=== PATIENT | male | born 1980 | race Caucasian/White ===

== ENCOUNTER 2020-04-21 10:41 | Inpatient (IN) | payer SELFPAY ==
[2020-04-21] MEDS ORDERED: NORMAL SALINE 1000 ML 1,000 ML IV ONE ×3 (11:51→18:46)
[2020-04-21] MEDS ORDERED: PROCHLORPERAZINE EDISYLATE INJ 10 MG/2 ML VIAL IV ONE (11:51)
[2020-04-21] MEDS ORDERED: DIPH/PERTUSS(ACELL)/TETANUS VAC/PF 0.5 ML SYR (>=10YO) IM ONE (11:51)
[2020-04-21] MEDS ORDERED: DIPHENHYDRAMINE HCL 50 MG/ML VIAL IV ONE (11:51)
[2020-04-21] MEDS ORDERED: CEPHALEXIN 500 MG CAPSULE PO ONE (11:52)
[2020-04-21] MEDS ORDERED: SULFAMETHOXAZOLE/TRIMETHOPRIM 800-160 MG TABLET PO ONE (11:52)
--- NOTE | 2020-04-21 11:54 | ER Document Report ---
ED General - General Chief Complaint: Headache Stated Complaint: HEADACHE/NAUSEA/CHILLS Time Seen by Provider: 04/21/20 11:30 Mode of Arrival: Ambulatory Information source: Patient Notes: Patient presents with multiple complaints. Patient reports headache that started 4 days ago and has gradually started to worsen. Patient reports some dizziness with sore throat. Patient states he felt as though his heart was racing and felt short of breath for the past 2 days off and on. Patient reports nausea as well as chills. Patient also states he slipped on stairs 5 days ago injuring his right ankle. - HPI Onset: Other - 4 days Onset/Duration: Worse Quality of pain: Achy, Pressure Pain Level: 4 Associated symptoms: Chills, Headache, Nausea, Shortness of breath. denies: Chest pain, Nonproductive cough, Productive cough, Diarrhea, Fever, Vomiting Exacerbated by: Other - Light makes headache worse Relieved by: Denies Similar symptoms previously: No Recently seen / treated by doctor: No - Related Data Allergies/Adverse Reactions: lisinopril [Lisinopril] Allergy (Verified 04/21/20 12:08) ANGIOEDEMA muscle relaxers Allergy (Uncoded 05/01/14 10:26) Past Medical History - General Information source: Patient - Social History Smoking Status: Current Every Day Smoker Frequency of alcohol use: None Drug Abuse: None Occupation: [employer] Family History: Reviewed & Not Pertinent - Past Medical History Cardiac Medical History: Reports: Hx Hypertension Pulmonary Medical History: Denies: Hx Tuberculosis Renal/ Medical History: Reports: Other - Cholecystic kidney disease Psychiatric Medical History: Reports: Hx Depression Past Surgical History: Reports: Hx Orthopedic Surgery - [place] IN RIGHT LEG - Immunizations Hx Diphtheria, Pertussis, Tetanus Vaccination: No - unknown Hx Pneumococcal Vaccination: 10/18/00 Review of Systems - Review of Systems Constitutional: Chills. denies: Fever EENT: Throat pain Cardiovascular: Palpitations, Heart racing, Dizziness. denies: Chest pain Respiratory: Short of breath. denies: Cough Gastrointestinal: Nausea. denies: Abdominal pain, Vomiting Genitourinary: No symptoms reported Male Genitourinary: No symptoms reported Musculoskeletal: Joint pain - Right ankle pain. denies: Back pain, Neck pain Skin: Other - Right ankle abrasion Hematologic/Lymphatic: No symptoms reported Neurological/Psychological: Headaches. denies: Confusion, Weakness, Lost consciousness Physical Exam - Vital signs Vitals: Temp 98.4 F 04/21/20 11:25 - General General appearance: Appears well, Alert In distress: None - HEENT Head: Normocephalic, Atraumatic Eyes: Normal, Scleral icterus Pupils: PERRL Nasal: Normal Mouth/Lips: Normal Mucous membranes: Dry Neck: Normal, Supple. No: Lymphadenopathy, Meningismus - Respiratory Respiratory status: No respiratory distress Chest status: Nontender Breath sounds: Normal. No: Rales, Rhonchi, Stridor, Wheezing Chest palpation: Normal - Cardiovascular Rhythm: Regular. No: Tachycardia Heart sounds: S1 appreciated, S2 appreciated Murmur: No - Abdominal Inspection: Normal Distension: No distension Bowel sounds: Normal Tenderness: Nontender Organomegaly: No organomegaly - Back Back: Normal, Nontender - Extremities General upper extremity: Normal inspection, Normal strength General lower extremity: Tender - Tenderness with erythema over lateral aspect of right ankle with overlying abrasion, Normal strength Ankle: Tender, Abrasion - Right ankle, Edema. No: Deformity, Instability, Laceration, Unable to bear weight - Neurological Neuro grossly intact: Yes Cognition: Normal Coby Coma Scale Eye Opening: Spontaneous Coby Coma Scale Verbal: Oriented Coby Coma Scale Motor: Obeys Commands Jewell Coma Scale Total: 15 - Psychological Associated symptoms: Normal affect, Normal mood - Skin Skin Temperature: Warm Skin Moisture: Dry Skin Color: Erythema - Lateral aspect of right ankle Course - Re-evaluation Re-evalutation: 04/21/20 15:00 Patient continues with headache pain. Patient denies any chest discomfort or shortness of breath. Patient denies any palpitations. Additional pain medication for headache ordered. 04/21/20 17:00 Patient with elevated troponin, no ischemic changes noted on EKG. Patient denies any chest pain or shortness of breath at this time. 04/21/20 17:[address] Alberts, Dr. Alberts to bedside for examination. Advises giving patient IV vancomycin as well as Rocephin and consulting with the underground miner Dr. Haley regarding patient presentation. Also advises planned consultation with hospitalist for admission given patient's multiple issues today. 04/21/20 17:58 consulted with Bobby Mead [employer] who agrees to accept pt to telemetry. Will consult ortho given concern about fracture with overlying cellulitis. - Vital Signs Vital signs: Temp Pulse Resp BP Pulse Ox 100.1 F 106 H 17 157/97 H 100 04/21/20 15:22 04/21/20 15:22 04/21/20 15:22 04/21/20 15:22 04/21/20 15:22 - Laboratory Result Diagrams: 04/21/20 15:15 04/21/20 15:15 Laboratory results interpreted by me: 04/21/20 04/21/20 04/21/20 12:20 15:15 15:15 Plt Count 135 L Seg Neuts % (Manual) 95 H Lymphocytes % (Manual) 1 L Abs Lymphs (Manual) 0.1 L D-Dimer Sodium 132.4 L Chloride 97 L Glucose 133 H Urine Protein >=500 H Urine Blood SMALL H Urine Urobilinogen 4.0 H 04/21/20 15:15 Plt Count Seg Neuts % (Manual) Lymphocytes % (Manual) Abs Lymphs (Manual) D-Dimer 6.10 H Sodium Chloride Glucose Urine Protein Urine Blood Urine Urobilinogen Labs- All tests 24 hr 04/21/20 04/21/20 04/21/20 12:17 12:20 15:15 WBC 7.7 RBC 5.02 Hgb 14.6 Hct 41.9 MCV 84 MCH 29.1 MCHC 34.9 RDW 12.8 Plt Count 135 L Lymph % (Auto) Not Reportable [place] % (Auto) Not Reportable Eos % (Auto) Not Reportable Baso % (Auto) Not Reportable Absolute Neuts (auto) Not Reportable Absolute Lymphs (auto) Not Reportable Absolute Monos (auto) Not Reportable Absolute Eos (auto) Not Reportable Absolute Basos (auto) Not Reportable Total Counted 100 Seg Neutrophils % Not Reportable Seg Neuts % (Manual) 95 H Lymphocytes % (Manual) 1 L Monocytes % (Manual) 4 Eosinophils % (Manual) 0 Basophils % (Manual) 0 Abs Neuts (Manual) 7.3 Abs Lymphs (Manual) 0.1 L Abs Monocytes (Manual) 0.3 Absolute Eos (Manual) 0.0 Abs Basophils (Manual) 0.0 Platelet Comment ADEQUATE RBC Morph Comment NORMO-CYTIC/CHROMIC PT INR D-Dimer Sodium Potassium Chloride Carbon Dioxide Anion Gap BUN Creatinine Est GFR ( Amer) Est GFR (MDRD) Non-Af Glucose Calcium Total Bilirubin Direct Bilirubin Neonat Total Bilirubin Neonat Direct Bilirubin Neonat Indirect Bili AST ALT Alkaline Phosphatase Creatine Kinase Troponin I Total Protein Albumin Urine Color RIAN Urine Appearance SLIGHTLY-CLOUDY Urine pH 6.0 Ur Specific [place] 1.019 Urine Protein >=500 H Urine Glucose (UA) NEGATIVE Urine Ketones NEGATIVE Urine Blood SMALL H Urine Nitrite NEGATIVE Urine Bilirubin NEGATIVE Urine Urobilinogen 4.0 H Ur Leukocyte Esterase NEGATIVE Urine WBC (Auto) 10 Urine RBC (Auto) 9 Urine Bacteria (Auto) TRACE Amorphous Sediment Auto TRACE Urine Mucus (Auto) RARE Urine Ascorbic Acid NEGATIVE Group A Strep Rapid NEGATIVE 04/21/20 04/21/20 04/21/20 15:15 15:15 15:15 WBC RBC Hgb Hct MCV MCH MCHC RDW Plt Count Lymph % (Auto) [place] % (Auto) Eos % (Auto) Baso % (Auto) Absolute Neuts (auto) Absolute Lymphs (auto) Absolute Monos (auto) Absolute Eos (auto) Absolute Basos (auto) Total Counted Seg Neutrophils % Seg Neuts % (Manual) Lymphocytes % (Manual) Monocytes % (Manual) Eosinophils % (Manual) Basophils % (Manual) Abs Neuts (Manual) Abs Lymphs (Manual) Abs Monocytes (Manual) Absolute Eos (Manual) Abs Basophils (Manual) Platelet Comment RBC Morph Comment PT INR D-Dimer 6.10 H Sodium 132.4 L Potassium 3.9 Chloride 97 L Carbon Dioxide 25 Anion Gap 10 BUN 17 Creatinine 0.97 Est GFR ( Amer) > 60 Est GFR (MDRD) Non-Af > 60 Glucose 133 H Calcium 8.7 Total Bilirubin 0.7 Direct Bilirubin 0.2 Neonat Total Bilirubin Not Reportable Neonat Direct Bilirubin Not Reportable Neonat Indirect Bili Not Reportable AST 33 ALT 14 Alkaline Phosphatase 111 Creatine Kinase 59 Troponin I 0.141 Total Protein 6.7 Albumin 3.6 Urine Color Urine Appearance Urine pH Ur Specific [place] Urine Protein Urine Glucose (UA) Urine Ketones Urine Blood Urine Nitrite Urine Bilirubin Urine Urobilinogen Ur Leukocyte Esterase Urine WBC (Auto) Urine RBC (Auto) Urine Bacteria (Auto) Amorphous Sediment Auto Urine Mucus (Auto) Urine Ascorbic Acid Group A Strep Rapid 04/21/20 15:15 WBC RBC Hgb Hct MCV MCH MCHC RDW Plt Count Lymph % (Auto) [place] % (Auto) Eos % (Auto) Baso % (Auto) Absolute Neuts (auto) Absolute Lymphs (auto) Absolute Monos (auto) Absolute Eos (auto) Absolute Basos (auto) Total Counted Seg Neutrophils % Seg Neuts % (Manual) Lymphocytes % (Manual) Monocytes % (Manual) Eosinophils % (Manual) Basophils % (Manual) Abs Neuts (Manual) Abs Lymphs (Manual) Abs Monocytes (Manual) Absolute Eos (Manual) Abs Basophils (Manual) Platelet Comment RBC Morph Comment PT 14.0 INR 1.09 D-Dimer Sodium Potassium Chloride Carbon Dioxide Anion Gap BUN Creatinine Est GFR ( Amer) Est GFR (MDRD) Non-Af Glucose Calcium Total Bilirubin Direct Bilirubin Neonat Total Bilirubin Neonat Direct Bilirubin Neonat Indirect Bili AST ALT Alkaline Phosphatase Creatine Kinase Troponin I Total Protein Albumin Urine Color Urine Appearance Urine pH Ur Specific [place] Urine Protein Urine Glucose (UA) Urine Ketones Urine Blood Urine Nitrite Urine Bilirubin Urine Urobilinogen Ur Leukocyte Esterase Urine WBC (Auto) Urine RBC (Auto) Urine Bacteria (Auto) Amorphous Sediment Auto Urine Mucus (Auto) Urine Ascorbic Acid Group A Strep Rapid - Diagnostic Test Radiology reviewed: Reports reviewed Discharge - Discharge Clinical Impression: Elevated troponin Headache Qualifiers: Headache type: unspecified Headache chronicity pattern: acute headache Intractability: not intractable Qualified Code(s): R51 - Headache Cellulitis Qualifiers: Site of cellulitis: extremity Site of cellulitis of extremity: lower extremity Laterality: right Qualified Code(s): L03.115 - Cellulitis of right lower limb Avulsion fracture of ankle Qualifiers: Encounter type: initial encounter Fracture type: closed Laterality: right Qualified Code(s): S82.891A - Other fracture of right lower leg, initial encounter for closed fracture Condition: Stable Disposition: ADMITTED INPATIENT Admitting Provider: Aneudy (Hospitalist) Unit Admitted: Telemetry
--- NOTE | 2020-04-21 12:35 | RADIOLOGY REPORT (SQ) ---
EXAM DESCRIPTION: ANKLE RIGHT COMPLETE IMAGES COMPLETED DATE/TIME: 04/21/2020 12:12 pm REASON FOR STUDY: fall, ankle injury COMPARISON: None. EXAM PARAMETERS: NUMBER OF VIEWS: Three views. TECHNIQUE: AP, lateral and oblique radiographic images acquired of the right ankle. LIMITATIONS: None. FINDINGS: MINERALIZATION: Normal. BONES: 3 mm nondisplaced avulsion fracture from the posterolateral corner of the lateral malleolus, s een only on the oblique projection. No other fracture or Dislocation. Distal tibial hardware appear s intact. No worrisome bone lesions. JOINTS: No effusion. SOFT TISSUES: Lateral soft tissue swelling. No radiopaque foreign body. OTHER: No other significant finding. IMPRESSION: 3 mm nondisplaced avulsion fracture from the posterolateral corner of the lateral malleo milagros, seen only on the oblique projection. TECHNICAL DOCUMENTATION: JOB ID: [id number] [id number] 2010 [email or web address]- All Rights Reserved Reading location - IP/workstation name: [email or web address]
--- NOTE | 2020-04-21 12:38 | RADIOLOGY REPORT (SQ) ---
EXAM DESCRIPTION: CHEST SINGLE VIEW IMAGES COMPLETED DATE/TIME: 04/21/2020 12:12 pm REASON FOR STUDY: sob COMPARISON: 02/16/2014 TECHNIQUE: Single frontal radiographic view of the chest acquired. NUMBER OF VIEWS: One view. LIMITATIONS: None. FINDINGS: LUNGS AND PLEURA: No pneumothorax. No consolidation or pleural effusion. MEDIASTINUM AND HILAR STRUCTURES: Stable. HEART AND VASCULAR STRUCTURES: Stable. BONES: No acute findings. HARDWARE: None in the chest. OTHER: Similar metallic BB in the left upper quadrant -lung base. IMPRESSION: NO ACUTE FINDINGS. TECHNICAL DOCUMENTATION: JOB ID: [id number] [place]-72 2010 [employer]- All Rights Reserved Reading location - IP/workstation name: [email or web address]
[2020-04-21] MEDS ORDERED: MORPHINE SULFATE 10 MG/ML INJ IV ONE (15:13)
[2020-04-21 15:21] LABS: AMORPHOUS SEDIMENT,URINE TRACE /HPF; APPEARANCE,URINE SLIGHTLY-CLOUDY; BILIRUBIN,URINE NEGATIVE (NEGATIVE); COLOR,URINE AMBER; GLUCOSE, URINE NEGATIVE (NEGATIVE); KETONES,URINE NEGATIVE (NEGATIVE); LEUKOCYTE ESTERASE,URINE NEGATIVE (NEGATIVE); NITRITE,URINE NEGATIVE (NEGATIVE); PROTEIN,URINE >=500 mg/dL (NEGATIVE); URINE SPECIFIC GRAVITY 1.019
[2020-04-21 15:42] LABS: HEMATOCRIT 41.9 % (37.9-51.0); HEMOGLOBIN 14.6 g/dL (13.5-17.0); MEAN CORPUSCULAR HEMOGLOBIN 29.1 pg (27.0-33.4); MEAN CORPUSCULAR HGB CONC 34.9 g/dL (32.0-36.0); MEAN CORPUSCULAR VOLUME 84 fl (80-97); PLATELET COUNT 135 10^3/uL (150-450); RED BLOOD COUNT 5.02 10^6/uL (4.35-5.55); RED CELL DISTRIBUTION WIDTH 12.8 % (11.5-14.0); WHITE BLOOD COUNT 7.7 10^3/uL (4.0-10.5)
[2020-04-21] MEDS ORDERED: ACETAMINOPHEN 325 MG TABLET PO ONE (15:56)
[2020-04-21 15:59] LABS: ALBUMIN 3.6 g/dL (3.5-5.0); ALKALINE PHOSPHATASE 111 U/L (38-126); ANION GAP 10 (5-19); ASPARTATE AMINO TRANSFERASE 33 U/L (17-59); BILIRUBIN,DIRECT 0.2 mg/dL (0.0-0.4); BILIRUBIN,TOTAL 0.7 mg/dL (0.2-1.3); BLOOD UREA NITROGEN 17 mg/dL (7-20); CALCIUM 8.7 mg/dL (8.4-10.2); CARBON DIOXIDE 25 mmol/L (22-30); CHLORIDE 97 mmol/L (98-107); CREATINE KINASE 59 U/L (55-170); GLUCOSE 133 mg/dL (75-110); POTASSIUM 3.9 mmol/L (3.6-5.0); TOTAL PROTEIN 6.7 g/dL (6.3-8.2)
[2020-04-21 16:02] LABS: ABSOLUTE LYMPHOCYTES# (MANUAL) 0.1 10^3/uL (0.5-4.7); ABSOLUTE MONOCYTES # (MANUAL) 0.3 10^3/uL (0.1-1.4); BASOPHILS % (MANUAL) 0 % (0-2); EOSINOPHILS % (MANUAL) 0 % (0-6); LYMPHOCYTES % (MANUAL) 1 % (13-45); MONOCYTES % (MANUAL) 4 % (3-13); SEGMENTED NEUTROPHILS % (MAN) 95 % (42-78); TOTAL CELLS COUNTED 100
[2020-04-21 16:03] LABS: PLATELET COMMENT ADEQUATE; RBC MORPHOLOGY COMMENT NORMO-CYTIC/CHROMIC
[2020-04-21] MEDS ORDERED: ASPIRIN 81 MG TABLET, CHEWABLE PO ONE (16:59)
--- NOTE | 2020-04-21 17:21 | EKG REPORT ---
SEVERITY:- NORMAL ECG - SINUS RHYTHM : Confirmed by: Fadumo Menendez MD 21-Apr-2020 17:20:34
--- NOTE | 2020-04-21 17:21 | EKG REPORT ---
SEVERITY:- NORMAL ECG - SINUS RHYTHM : Confirmed by: Fadumo Menendez MD 21-Apr-2020 17:20:57
[2020-04-21] MEDS ORDERED: CEFTRIAXONE 1 GM/D5W RTU 1 GM/50 ML RTUPB IV ONE (17:23)
[2020-04-21] MEDS ORDERED: KETOROLAC TROMETHAMINE INJ/PF 30 MG/1 ML SDV IV ONE (17:23)
[2020-04-21] MEDS ORDERED: VANCOMYCIN HCL INJ 1000 MG VIAL IV ONE (17:23)
--- NOTE | 2020-04-21 17:57 | ER Document Report ---
Doctor's Note Notes: 04/21/20 17:55 Is a 39-year-old man I was asked to see along with midlevel provider. He presented today with multiple complaints and problems. Chief among these seems to be a cellulitis involving the right ankle area. X-rays demonstrated a small chip fracture in this area. Examination does not show any fluctuance or galloway ggestion of an abscess. He does however have a significant cellulitis. He is afebrile and his white count is normal but he is complaining of some systemic symptoms primarily persistent headache. He is also noted to have a small elevation of his troponin although he has no EKG changes no complaint of chest pain. I recommended that the case be presented to cardiology and that this gentleman receive IV antibiotics with MRSA coverage and at least an observation admission and serial follow-up of his troponin. Findings were presented to the on-call medical physics teacher Dr. Haley and he feels this is a "troponin leak" in all likelihood and suggest that he be admitted and have a repeat troponin documented.
[2020-04-21] MEDS ORDERED: ACETAMINOPHEN 325 MG TABLET PO PRN (18:17)
[2020-04-21] MEDS ORDERED: PROMETHAZINE HCL INJ 25 MG/1 ML VIAL IV PRN (18:27)
[2020-04-21] MEDS ORDERED: ONDANSETRON HCL INJ/PF 4 MG/2 ML SDV IV PRN (18:27)
[2020-04-21] MEDS ORDERED: MAG HYDROX/AL HYDROX/SIMETH SUSP 30 ML UDCUP PO PRN (18:27)
[2020-04-21] MEDS ORDERED: MAGNESIUM HYDROXIDE SUSP 30 ML UDCUP PO PRN (18:27)
[2020-04-21] MEDS ORDERED: HYDRALAZINE HCL INJ/PF 20 MG/1 ML SDV IV PRN (18:29)
[2020-04-21] MEDS ORDERED: HYDROCODONE/ACETAMINOPHEN 5-325 MG TABLET PO PRN (18:33)
[2020-04-21] MEDS ORDERED: VANCOMYCIN HCL 0 MG in DEXTROSE 5%-WATER 250 ML IV NR (18:45)
[2020-04-21 18:49] LABS: INTERNATIONAL RATION (INR) 1.09
--- NOTE | 2020-04-21 19:05 | PDOC H&P ---
History of Present Illness Admission Date/PCP: 04/21/20 18:25 Patient complains of: headache, right ankle pain History of Present Illness: NANCIE SCHROEDER is a 39 year old male with a past medical history significant for hypertension and tobacco dependence with continuous use who presented to the emergency department with multiple complaints. The patient reports that he slipped on wet stairs 5 days ago. He developed ankle swelling, erythema, and pain approximately 2 days later associated with subjective fever, generalized body aches/malaise, mild nausea, and diarrhea. He notes that a day or 2 after that, he developed global headache, sore throat, shortness of breath, and chest discomfort. 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 Evaluation in the emergency department revealed low-grade temp (100.1), tac hycardia 5 days ago (HR 106), hypertension (157/97), normal respiratory rate and SPO2. Laboratory evaluation revealed normal WBCs though lymphopenia, and unremarkable chemistry, troponin of 0.141, proteinuria, and a negative group strep. EKG shows sinus rhythm. Chest x-ray is benign. Ankle x-ray shows a right lateral malleolus avulsion fracture. He was provided IV vancomycin and Rocephin, 2 L normal saline bolus, and is referred to the hospitalist service for admission and management of the above- stated complaints and findings. Past Medical History Cardiac Medical History: Reports: Hypertension Denies: Atrial Fibrillation, Coronary Artery Disease, Hyperlipidema Pulmonary Medical History: Denies: Chronic Obstructive Pulmonary Disease (COPD), Tuberculosis EENT Medical History: Reports: None Neurological Medical History: Reports: None Endocrine Medical History: Reports: None Renal/ Medical History: Reports: None Malignancy Medical History: Reports: None GI Medical History: Reports: Hepatitis - s/p Harvoni treatment Musculoskeltal Medical History: Reports: None Skin Medical History: Reports: None Psychiatric Medical History: Reports: Depression, Tobacco Dependency Hematology: Reports: None Infectious Medical History: Reports: Hepatitis C Past Surgical History Past Surgical History: Reports: Orthopedic Surgery - [facility] IN RIGHT LEG Social History Information Source: Patient Lives with: Alone Smoking Status: Current Every Day Smoker Cigarettes Packs Per Day: 1 Frequency of Alcohol Use: None Hx Recreational Drug Use: Yes Drugs: Marijuana, Other Hx Prescription Drug Abuse: No - Advance Directive Resuscitation Status: Full Code Family History Family History: Reviewed & Not Pertinent Parental Family History Reviewed: Yes Children Family History Reviewed: Yes Sibling(s) Family History Reviewed.: Yes Medication/Allergy Home Medications: Sulfamethoxazole/Trimethoprim [Bactrim Ds Tablet] 2 tab PO BID #40 tablet 04/26/14 Acetaminophen with Codeine [Acetaminophen-Cod #3 Tablet] 1 each PO Q4 PRN #20 tablet 05/01/14 Tramadol HCl [Ultram 50 mg Tablet] 50 mg PO Q6HP PRN #10 tablet 05/14/14 Allergies/Adverse Reactions: lisinopril [Lisinopril] Allergy (Verified 04/21/20 12:08) ANGIOEDEMA muscle relaxers Allergy (Uncoded 05/01/14 10:26) Review of Systems Constitutional: PRESENT: chills, fever(s), headache(s). ABSENT: weight gain, weight loss Eyes: ABSENT: visual disturbances Ears: ABSENT: hearing changes Nose, Mouth, and Throat: PRESENT: sore throat Cardiovascular: PRESENT: chest pain. ABSENT: dyspnea on exertion, edema, orthropnea, palpitations Respiratory: PRESENT: dyspnea. ABSENT: cough, hemoptysis Gastrointestinal: PRESENT: diarrhea, nausea, vomiting. ABSENT: abdominal pain, constipation, hematemesis, hematochezia Genitourinary: ABSENT: dysuria, hematuria Musculoskeletal: PRESENT: as per HPI, deformity, joint swelling Integumentary: PRESENT: erythema. ABSENT: rash, wounds Neurological: ABSENT: abnormal gait, abnormal speech, confusion, dizziness, focal weakness, syncope Psychiatric: ABSENT: anxiety, depression, homidical ideation, suicidal ideation Endocrine: ABSENT: cold intolerance, heat intolerance, polydipsia, polyuria Hematologic/Lymphatic: ABSENT: easy bleeding, easy bruising Physical Exam Vital Signs: Temp Pulse Resp BP Pulse Ox 100.1 F 106 H 17 157/97 H 100 04/21/20 15:22 04/21/20 15:22 04/21/20 15:22 04/21/20 15:22 04/21/20 15:22 Intake & Output 04/20/20 04/21/20 04/22/20 06:59 06:59 06:59 Intake Total 1000 Balance 1000 Weight 79.379 kg General appearance: PRESENT: no acute distress, cooperative, well-developed, well-nourished Head exam: PRESENT: atraumatic, normocephalic Eye exam: PRESENT: conjunctiva pink, EOMI, PERRLA. ABSENT: scleral icterus Mouth exam: PRESENT: dry mucosa, tongue midline Respiratory exam: PRESENT: clear to auscultation nils, symmetrical, unlabored. ABSENT: rales, rhonchi, wheezes Cardiovascular exam: PRESENT: RRR, +S1, +S2, tachycardia. ABSENT: diastolic murmur, rubs, systolic murmur Pulses: PRESENT: normal dorsalis pedis pul Vascular exam: PRESENT: normal capillary refill GI/Abdominal exam: PRESENT: normal bowel sounds, soft. ABSENT: distended, guarding, mass, organolmegaly, rebound, tenderness Rectal exam: PRESENT: deferred Extremities exam: PRESENT: joint swelling - Right ankle, tenderness - Right ankle. ABSENT: calf tenderness, clubbing, pedal edema Neurological exam: PRESENT: alert, awake, oriented to person, oriented to place, oriented to time, oriented to situation, CN II-XII grossly intact. ABSENT: motor sensory deficit Psychiatric exam: PRESENT: appropriate affect, normal mood. ABSENT: homicidal ideation, suicidal ideation Skin exam: PRESENT: dry, erythema - Small abrasion and erythema to right ankle, warm. ABSENT: cyanosis, rash Results Laboratory Results: 04/21/20 15:15 04/21/20 15:15 04/21/20 04/21/20 04/21/20 12:20 15:15 15:15 WBC 7.7 RBC 5.02 Hgb 14.6 Hct 41.9 MCV 84 MCH 29.1 MCHC 34.9 RDW 12.8 Plt Count 135 L Seg Neutrophils % Not Reportable Sodium 132.4 L Potassium 3.9 Chloride 97 L Carbon Dioxide 25 Anion Gap 10 BUN 17 Creatinine 0.97 Est GFR ( Amer) > 60 Glucose 133 H Calcium 8.7 Total Bilirubin 0.7 AST 33 Alkaline Phosphatase 111 Total Protein 6.7 Albumin 3.6 Urine Color RIAN Urine Appearance SLIGHTLY-CLOUDY Urine pH 6.0 Ur Specific [place] 1.019 Urine Protein >=500 H Urine Glucose (UA) NEGATIVE Urine Ketones NEGATIVE Urine Blood SMALL H Urine Nitrite NEGATIVE Ur Leukocyte Esterase NEGATIVE Urine WBC (Auto) 10 Urine RBC (Auto) 9 04/21/20 04/21/20 15:15 15:15 Creatine Kinase 59 Troponin I 0.141 Impressions: Ankle X-Ray 04/21/20 11:50 IMPRESSION: 3 mm nondisplaced avulsion fracture from the posterolateral corner of the lateral malleolus, seen only on the oblique projection. Chest X-Ray 04/21/20 11:50 IMPRESSION: NO ACUTE FINDINGS. Assessment and Plan - Diagnosis (1) Cellulitis Qualifiers: Site of cellulitis: extremity Site of cellulitis of extremity: lower extremity Laterality: right Qualified Code(s): L03.115 - Cellulitis of right lower limb Is this a current diagnosis for this admission?: Yes Plan: Blood cultures pending Patient is admitted to the medical floor on continuous cardiac telemetry. Orthopedics has been consulted; appreciate Dr. Cortes's assistance. He is empirically placed on IV vancomycin and Ancef. Keep extremity elevated. Analgesics as needed. (2) Suspected COVID-19 virus infection Is this a current diagnosis for this admission?: Yes Plan: Patient presents with systemic symptoms that cannot be entirely explained by his cellulitis; fever, chills, malaise, headache, sore throat, shortness of breath, chest discomfort, nausea, diarrhea. Is noted to have a low-grade temperature, tachycardia, and tachypnea, but mainta ining oxygen saturations on room air. COVID test pending. D-dimer is elevated; will hold on full dose anticoagulation as patient does not have hypoxia. Should this develop, and anticoagulation, will start Heparin gtt given acute ankle fracture. He will be placed on vitamin C, vitamin D, DM, and melatonin. Supplemental oxygen as needed to maintain saturations. We will forego the CRP, LDH, ferritin as the patient has a fracture and cellulitis which would also elevate these results. (3) Sepsis Qualifiers: Sepsis type: sepsis due to unspecified organism Sepsis acute organ dysfunction status: without acute organ dysfunction Qualified Code(s): A41.9 - Sepsis, unspecified organism Is this a current diagnosis for this admission?: Yes Plan: Patient presents with sepsis, presumably due to right ankle cellulitis, present on admission, evidenced by fever, tachycardia, tachypnea, thrombocytopenia, and elevated troponin. Lactic acid pending. He is fluid resuscitated with normal saline boluses and maintenance fluids. Blood cultures are pending. Discussed with Ortho, he will be placed on IV vancomycin and Ancef. Remaining management as above. (4) Avulsion fracture of ankle Qualifiers: Encounter type: initial encounter Fracture type: closed Laterality: right Qualified Code(s): S82.891A - Other fracture of right lower leg, initial encounter for closed fracture Is this a current diagnosis for this admission?: Yes Plan: Velcro stirrup splint in place. Keep extremity elevated. [place] as needed for pain. Antiemetics as needed. Orthopedics is consulted; appreciate Dr. Cortes's evaluation recommendations. (5) Elevated troponin Is this a current diagnosis for this admission?: Yes Plan: Patient denies chest pain. EKG shows normal sinus rhythm. He will be monitored on continuous cardiac telemetry. He is placed on daily aspirin therapy. We will obtain lipid panel and A1c with a.m. lab work. Continue serial troponins. The emergency department provider spoke with Dr. Haley today who indicated that this could be a troponin leak related to his hypertension and sepsis. Dr. Haley will be available tomorrow; will consult if continues to trend upward or patient develops EKG changes or worsening discomfort (6) Hypertension Qualifiers: Hypertension type: essential hypertension Qualified Code(s): I10 - Essential (primary) hypertension Is this a current diagnosis for this admission?: Yes Plan: Start amlodipine nightly. IV Hydralazine as needed for blood pressure control. Cardiac diet. (7) Headache Qualifiers: Headache type: unspecified Headache chronicity pattern: acute headache Intractability: not intractable Qualified Code(s): R51 - Headache Is this a current diagnosis for this admission?: Yes Plan: IV fluid hydration. Obtain adequate blood pressure control. Analgesics as needed. Nonpharmacological interventions. (8) Tobacco dependence Is this a current diagnosis for this admission?: Yes Plan: Smoking cessation encouraged. Nicotine replacement therapies are provided. - Time Time Spent with patient: 35 or more minutes Medications reviewed and adjusted accordingly: Yes Anticipated discharge: Home
[2020-04-21] MEDS: HYDROCODONE/ACETAMINOPHEN 5-325 MG TABLET PO PRN ×2 (20:07→23:59)
[2020-04-21] MEDS: FAMOTIDINE 20 MG TABLET PO SCH (22:16)
[2020-04-21] MEDS: AMLODIPINE BESYLATE 5 MG TABLET PO SCH (22:16)
[2020-04-21] MEDS: MELATONIN 3 MG TABLET PO SCH (22:16)
[2020-04-21] MEDS: HEPARIN SOD (PORCINE) 5,000 UNIT/ML 1 ML VIAL SUBCUT SCH (22:17)
[2020-04-21] MEDS: NORMAL SALINE 1000 ML 1,000 ML IV PRN (23:59)
[2020-04-21] MEDS: CEFAZOLIN 1 GM/D5W RTU 1 GM/50 ML RTUPB IV SCH (23:59)
[2020-04-22] MEDS: HYDROCODONE/ACETAMINOPHEN 5-325 MG TABLET PO PRN ×3 (04:00→12:02)
[2020-04-22] MEDS ORDERED: VANCOMYCIN HCL INJ 1000 MG VIAL IV PRN (04:32)
[2020-04-22] MEDS: CEFAZOLIN 1 GM/D5W RTU 1 GM/50 ML RTUPB IV SCH ×4 (05:57→23:34)
[2020-04-22] MEDS: HEPARIN SOD (PORCINE) 5,000 UNIT/ML 1 ML VIAL SUBCUT SCH ×3 (05:57→21:43)
[2020-04-22] MEDS ORDERED: VANCOMYCIN HCL 1,250 MG in DEXTROSE 5%-WATER 250 ML IV ONE (06:00)
[2020-04-22] MEDS: NORMAL SALINE 1000 ML 1,000 ML IV PRN (06:53)
--- NOTE | 2020-04-22 07:21 | PDOC CONSULTATION ---
Consultation Consult Date: 04/22/20 Provider Consulted: LYLE BISHOP JR History of Present Illness Admission Date/PCP: 04/21/20 18:25 Patient complains of: right ankle pain History of Present Illness: NANCIE SCHROEDER is a 39 year old male presents to the emergency department with complaints of fever generalized body ache malaise nausea and diarrhea. He also reports slipping on a dirty porch approximately 6 days ago scraping his right ankle against the steps. His other symptoms developed approximately 2 days afterwards. 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 His right ankle has since that time progressively increased in the erythema and pain localized to the lateral aspect of the ankle where he scraped his skin. There is been some associated swelling and tenderness to that area. He denies rolling his ankle. At this time he is being worked up for potential coronavirus given his associat ed symptoms. He has been on vancomycin and Ancef overnight. Past Medical History Cardiac Medical History: Reports: Hypertension Denies: Atrial Fibrillation, Coronary Artery Disease, Hyperlipidema Pulmonary Medical History: Denies: Chronic Obstructive Pulmonary Disease (COPD), Tuberculosis EENT Medical History: Reports: None Neurological Medical History: Reports: None Endocrine Medical History: Reports: None Renal/ Medical History: Reports: None, Other - Cholecystic kidney disease Malignancy Medical History: Reports: None GI Medical History: Reports: Hepatitis - s/p Harvoni treatment Musculoskeltal Medical History: Reports: None Skin Medical History: Reports: None Psychiatric Medical History: Reports: Depression, Tobacco Dependency Hematology: Reports: None Infectious Medical History: Reports: Hepatitis C Past Surgical History Past Surgical History: Reports: Orthopedic Surgery - [facility] IN RIGHT LEG Social History Lives with: Alone Smoking Status: Current Every Day Smoker Cigarettes Packs Per Day: 0.7 Electronic Cigarette use?: No Last Time Smoked: 04/21/2020 Frequency of Alcohol Use: None Hx Recreational Drug Use: Yes - last use 6years ago Drugs: Marijuana, Methadone Hx Prescription Drug Abuse: No - Advance Directive Resuscitation Status: Full Code Family History Family History: Reviewed & Not Pertinent Parental Family History Reviewed: No Children Family History Reviewed: NA Sibling(s) Family History Reviewed.: NA Medication/Allergy Home Medications: Losartan/Hydrochlorothiazide [Losartan-Hctz 50-12.5 mg Tab] 1 each PO DAILY 04/22/20 Allergies/Adverse Reactions: lisinopril [Lisinopril] Allergy (Verified 04/21/20 12:08) ANGIOEDEMA muscle relaxers Allergy (Uncoded 05/01/14 10:26) Review of Systems Review of Systems: Constitutional: ABSENT: anorexia, night sweats; Positive: Fever, chills Cardiovascular: ABSENT: chest pain Respiratory: Present: Mild shortness of breath Gastrointestinal: ABSENT: vomiting, Present: Nausea Genitourinary: ABSENT: dysuria Integumentary: ABSENT: rash, erythema and swelling to right lateral ankle Neurological: ABSENT: confusion, memory loss, numbness Psychiatric: ABSENT: hallucinations Hematologic/Lymphatic: ABSENT: easy bleeding All negative as above aside from that reported in the HPI Physical Exam Vital Signs: Temp Pulse Resp BP Pulse Ox 98.6 F 87 18 127/84 H 98 04/22/20 03:10 04/22/20 03:10 04/22/20 03:10 04/22/20 03:10 04/22/20 03:10 Intake & Output 04/21/20 04/22/20 04/23/20 06:59 06:59 06:59 Intake Total 2483 Output Total 850 Balance 1633 Weight 78.1 kg Physical Exam: General appearance: PRESENT: no acute distress, cooperative, well-nourished Head exam: PRESENT: atraumatic, normocephalic Eye exam: PRESENT: EOMI Ear exam: PRESENT: normal external ear exam Mouth exam: PRESENT: neck supple Neck exam: ABSENT: tracheal deviation Respiratory exam: PRESENT: symmetrical, unlabored. ABSENT: accessory muscle use, wheezes Pulses: PRESENT: normal radial pulses, normal dorsalis pedis pulse Vascular exam: PRESENT: normal capillary refill GI/Abdominal exam: ABSENT: distended, firm Extremities exam: PRESENT: full ROM of bilateral shoulders, elbows wrists, knees, hips and ankles without pain Musculoskeletal exam: PRESENT: full ROM, normal inspection of all 4 extremities aside from that noted below. Neurological exam: PRESENT: alert, awake, oriented to person, oriented to place, oriented to time Psychiatric exam: PRESENT: appropriate affect. ABSENT: agitated Focused psych exam: ABSENT: catatonic Skin exam: PRESENT: intact. ABSENT: dry All as above aside from that noted in the HPI and the following: Right lower extremity -Pulses 2+ distally -Compartments soft -Sensation grossly intact to L3-4-5 S1 -Motor grossly intact to EHL TA gastroc and quad -No tenderness to palpation at the medial tibiotalar joint. No palpable fluctuance or appreciable effusion of the right ankle. -Erythema and swelling on the lateral aspect of the ankle. No fluctuance or appreciable abscess. -No purulent drainage, mild abrasions present -Range of motion within extremes without pain. Results Laboratory Results: 04/21/20 15:15 04/21/20 15:15 04/21/20 04/21/20 04/21/20 12:20 15:15 15:15 WBC 7.7 RBC 5.02 Hgb 14.6 Hct 41.9 MCV 84 MCH 29.1 MCHC 34.9 RDW 12.8 Plt Count 135 L Seg Neutrophils % Not Reportable Sodium 132.4 L Potassium 3.9 Chloride 97 L Carbon Dioxide 25 Anion Gap 10 BUN 17 Creatinine 0.97 Est GFR ( Amer) > 60 Glucose 133 H Lactic Acid Calcium 8.7 Total Bilirubin 0.7 AST 33 Alkaline Phosphatase 111 Total Protein 6.7 Albumin 3.6 Urine Color RIAN Urine Appearance SLIGHTLY-CLOUDY Urine pH 6.0 Ur Specific [place] 1.019 Urine Protein >=500 H Urine Glucose (UA) NEGATIVE Urine Ketones NEGATIVE Urine Blood SMALL H Urine Nitrite NEGATIVE Ur Leukocyte Esterase NEGATIVE Urine WBC (Auto) 10 Urine RBC (Auto) 9 04/21/20 19:00 WBC RBC Hgb Hct MCV MCH MCHC RDW Plt Count Seg Neutrophils % Sodium Potassium Chloride Carbon Dioxide Anion Gap BUN Creatinine Est GFR ( Amer) Glucose Lactic Acid 0.7 Calcium Total Bilirubin AST Alkaline Phosphatase Total Protein Albumin Urine Color Urine Appearance Urine pH Ur Specific [place] Urine Protein Urine Glucose (UA) Urine Ketones Urine Blood Urine Nitrite Ur Leukocyte Esterase Urine WBC (Auto) Urine RBC (Auto) 04/21/20 04/21/20 04/21/20 15:15 15:15 19:00 Creatine Kinase 59 Troponin I 0.141 0.185 04/22/20 01:18 Creatine Kinase Troponin I 0.149 Impressions: Ankle X-Ray 04/21/20 11:50 IMPRESSION: 3 mm nondisplaced avulsion fracture from the posterolateral corner of the lateral malleolus, seen only on the oblique projection. Chest X-Ray 04/21/20 11:50 IMPRESSION: NO ACUTE FINDINGS. Assessment & Plan - Diagnosis (1) Avulsion fracture of ankle Qualifiers: Encounter type: initial encounter Fracture type: closed Laterality: right Qualified Code(s): S82.891A - Other fracture of right lower leg, initial encounter for closed fracture Is this a current diagnosis for this admission?: Yes Plan: Scraping his leg across the corner of a stair likely led to a small avulsion fracture that is not directly associated with ankle stability at this time. -Encourage weightbearing as tolerated and full range of motion of right ankle -May wear right ankle brace to comfort however given his cellulitis on the lateral side he may find this uncomfortable. Not required to wear at this time. -Encouraged physical therapy and Occupational Therapy (2) Cellulitis Qualifiers: Site of cellulitis: extremity Site of cellulitis of extremity: lower extremity Laterality: right Qualified Code(s): L03.115 - Cellulitis of right lower limb Is this a current diagnosis for this admission?: Yes Plan: Right ankle erythema appears cellulitic. No palpable fluctuance or appreciable abscess. No drainable lesion at this time. -Continue vancomycin, if no improvement over the course of the day may consider switching Ancef to Zosyn -We will follow for improvement. If worsened on tomorrow's exam may consider MRI tomorrow.
[2020-04-22 08:03] LABS: HEMATOCRIT 37.4 % (37.9-51.0); HEMOGLOBIN 12.9 g/dL (13.5-17.0); MEAN CORPUSCULAR HEMOGLOBIN 28.8 pg (27.0-33.4); MEAN CORPUSCULAR HGB CONC 34.5 g/dL (32.0-36.0); MEAN CORPUSCULAR VOLUME 84 fl (80-97); RED BLOOD COUNT 4.47 10^6/uL (4.35-5.55)
[2020-04-22 08:16] LABS: ANION GAP 9 (5-19); BLOOD UREA NITROGEN 18 mg/dL (7-20); CALCIUM 8.1 mg/dL (8.4-10.2); CARBON DIOXIDE 24 mmol/L (22-30); CHLORIDE 100 mmol/L (98-107); CHOLESTEROL 116.22 mg/dL (0-200); GLUCOSE 124 mg/dL (75-110); POTASSIUM 3.4 mmol/L (3.6-5.0); TRIGLYCERIDES 149 mg/dL (<150)
[2020-04-22 08:26] LABS: DIRECT LDL 59 mg/dL (<100)
[2020-04-22 08:39] LABS: ABSOLUTE LYMPHOCYTES# (MANUAL) 0.4 10^3/uL (0.5-4.7); ABSOLUTE MONOCYTES # (MANUAL) 0.9 10^3/uL (0.1-1.4); BAND NEUTROPHILS % (MANUAL) 2 % (3-5); BASOPHILS % (MANUAL) 0 % (0-2); EOSINOPHILS % (MANUAL) 0 % (0-6); LYMPHOCYTES % (MANUAL) 4 % (13-45); MONOCYTES % (MANUAL) 11 % (3-13); SEGMENTED NEUTROPHILS % (MAN) 82 % (42-78); TOTAL CELLS COUNTED 100
[2020-04-22 08:40] LABS: RBC MORPHOLOGY COMMENT NORMO-CYTIC/CHROMIC
[2020-04-22 08:41] LABS: PLATELET COMMENT DECREASED; PLATELET COUNT 111 10^3/uL (150-450)
[2020-04-22 08:42] LABS: PLATELET CLUMPS PRESENT
[2020-04-22] MEDS ORDERED: ONDANSETRON HCL INJ/PF 4 MG/2 ML SDV IV PRN (09:00)
[2020-04-22] MEDS ORDERED: PROMETHAZINE HCL INJ 25 MG/1 ML VIAL IV PRN (09:00)
[2020-04-22] MEDS: ASCORBIC ACID 500 MG TABLET PO SCH ×2 (12:02→17:07)
[2020-04-22] MEDS: NICOTINE 14 MG/24 HR PATCH.TD24 TD SCH (12:03)
[2020-04-22] MEDS: FAMOTIDINE 20 MG TABLET PO SCH ×2 (12:03→21:46)
[2020-04-22] MEDS: CHOLECALCIFEROL (D3) 400 UNIT TABLET PO SCH (12:03)
[2020-04-22] MEDS: DOCUSATE SODIUM 100 MG CAPSULE PO SCH (12:03)
[2020-04-22] MEDS: ZINC SULFATE 220 MG CAPSULE PO SCH (12:03)
[2020-04-22] MEDS: ASPIRIN 81 MG TABLET, CHEWABLE PO SCH (12:03)
[2020-04-22] MEDS ORDERED: OXYCODONE-ACETAMINOPHEN 5-325 MG TABLET PO PRN (15:57)
[2020-04-22] MEDS: OXYCODONE-ACETAMINOPHEN 5-325 MG TABLET PO PRN ×2 (16:10→20:14)
--- NOTE | 2020-04-22 17:44 | PDOC PROGRESS REPORT ---
Subjective Progress Note for:: 04/22/20 Subjective:: NANCIE SCHROEDER is a 39 year old male with a past medical history significant for hypertension and tobacco dependence with continuous use who was admitted 04/21/2028 with sepsis secondary to right ankle cellulitis. Patient was seen on afternoon rounds. He was found resting in bed, on room air, and continues to appear acutely ill. He complains of continued intermittent headache; overall decreased from yesterday. He also continues to have generalized malaise and fatigue. Ankle pain is somewhat improved. He notes increased edema though decreased erythema. When he is told that he will likely be staying another few days, he stated that he was relieved because he was concerned that we were preparing to discharged him and he did not feel well. He denies fever, chills, chest pain, palpitations, dyspnea, orthopnea, emesis and diarrhea. He does report nausea and decreased appetite. Has no other questions or concerns at this time. No concerns per nursing. Reason For Visit: CELLULITIS, RIGHT MALLEOLUS AVULSION FRACTURE Physical Exam Vital Signs: Temp Pulse Resp BP Pulse Ox 98.4 F 91 19 126/78 H 98 04/22/20 08:04 04/22/20 08:04 04/22/20 08:04 04/22/20 08:04 04/22/20 08:04 Intake & Output 04/21/20 04/22/20 04/23/20 06:59 06:59 06:59 Intake Total 4533 Output Total 850 Balance 3683 Weight 78.1 kg General appearance: PRESENT: no acute distress, cooperative, well-developed, well-nourished Head exam: PRESENT: atraumatic, normocephalic Eye exam: PRESENT: conjunctiva pink, EOMI, PERRLA. ABSENT: scleral icterus Mouth exam: PRESENT: moist, tongue midline Respiratory exam: PRESENT: clear to auscultation nils, symmetrical, unlabored. ABSENT: rales, rhonchi, wheezes Cardiovascular exam: PRESENT: RRR, +S1, +S2. ABSENT: diastolic murmur, rubs, systolic murmur Pulses: PRESENT: normal dorsalis pedis pul Vascular exam: PRESENT: normal capillary refill Extremities exam: PRESENT: full ROM, joint swelling - right ankle, tenderness - right ankle, +1 edema - RLE; foot extending midway up lower leg. ABSENT: calf tenderness, clubbing, pedal edema Neurological exam: PRESENT: alert, awake, oriented to person, oriented to place, oriented to time, oriented to situation, CN II-XII grossly intact. ABSENT: motor sensory deficit Psychiatric exam: PRESENT: appropriate affect, normal mood. ABSENT: homicidal ideation, suicidal ideation Skin exam: PRESENT: dry, erythema, warm. ABSENT: cyanosis, rash Results Laboratory Results: 04/22/20 07:06 04/22/20 07:06 04/21/20 04/21/20 04/21/20 12:20 15:15 15:15 WBC 7.7 RBC 5.02 Hgb 14.6 Hct 41.9 MCV 84 MCH 29.1 MCHC 34.9 RDW 12.8 Plt Count 135 L Seg Neutrophils % Not Reportable Sodium 132.4 L Potassium 3.9 Chloride 97 L Carbon Dioxide 25 Anion Gap 10 BUN 17 Creatinine 0.97 Est GFR ( Amer) > 60 Glucose 133 H Lactic Acid Calcium 8.7 Total Bilirubin 0.7 AST 33 Alkaline Phosphatase 111 Total Protein 6.7 Albumin 3.6 Triglycerides Cholesterol LDL Cholesterol Direct VLDL Cholesterol HDL Cholesterol Urine Color RIAN Urine Appearance SLIGHTLY-CLOUDY Urine pH 6.0 Ur Specific [place] 1.019 Urine Protein >=500 H Urine Glucose (UA) NEGATIVE Urine Ketones NEGATIVE Urine Blood SMALL H Urine Nitrite NEGATIVE Ur Leukocyte Esterase NEGATIVE Urine WBC (Auto) 10 Urine RBC (Auto) 9 04/21/20 04/22/20 04/22/20 19:00 07:06 07:06 WBC 8.0 RBC 4.47 Hgb 12.9 L Hct 37.4 L MCV 84 MCH 28.8 MCHC 34.5 RDW 13.0 Plt Count 111 L Seg Neutrophils % Not Reportable Sodium 133.2 L Potassium 3.4 L Chloride 100 Carbon Dioxide 24 Anion Gap 9 BUN 18 Creatinine 1.09 Est GFR ( Amer) > 60 Glucose 124 H Lactic Acid 0.7 Calcium 8.1 L Total Bilirubin AST Alkaline Phosphatase Total Protein Albumin Triglycerides 149 Cholesterol 116.22 LDL Cholesterol Direct 59 VLDL Cholesterol 30.0 HDL Cholesterol 24 L Urine Color Urine Appearance Urine pH Ur Specific [place] Urine Protein Urine Glucose (UA) Urine Ketones Urine Blood Urine Nitrite Ur Leukocyte Esterase Urine WBC (Auto) Urine RBC (Auto) 04/21/20 13:30 Blood Blood Culture (PCR) - Final Staphylococcus Aureus 04/21/20 15:15 Blood Blood Culture (PCR) - Final Staphylococcus Aureus 04/21/20 04/21/20 04/21/20 15:15 15:15 19:00 Creatine Kinase 59 Troponin I 0.141 0.185 04/22/20 04/22/20 01:18 07:06 Creatine Kinase Troponin I 0.149 0.104 Impressions: Ankle X-Ray 04/21/20 11:50 IMPRESSION: 3 mm nondisplaced avulsion fracture from the posterolateral corner of the lateral malleolus, seen only on the oblique projection. Chest X-Ray 04/21/20 11:50 IMPRESSION: NO ACUTE FINDINGS. Assessment and Plan - Diagnosis (1) Cellulitis Qualifiers: Site of cellulitis: extremity Site of cellulitis of extremity: lower extremity Laterality: right Qualified Code(s): L03.115 - Cellulitis of right lower limb Is this a current diagnosis for this admission?: Yes Plan: Blood cultures (4/4 bottles) shows staph aureus Patient is admitted to the medical floor on continuous cardiac telemetry. Orthopedics has been consulted; appreciate Dr. Cortes's assistance. He is empirically placed on IV vancomycin and Ancef. Day #2 Keep extremity elevated. Analgesics as needed. (2) Suspected COVID-19 virus infection Is this a current diagnosis for this admission?: Yes Plan: Patient presents with systemic symptoms that cannot be entirely explained by his cellulitis; fever, chills, malaise, headache, sore throat, shortness of breath, chest discomfort, nausea, diarrhea. Is noted to have a low-grade temperature, tachycardia, and tachypnea, but maintaining oxygen saturations on room air. COVID test pending. D-dimer is elevated; will hold on full dose anticoagulation as patient does not have hypoxia. Should this develop, and anticoagulation, will start Heparin gtt given acute ankle fracture. He will be placed on vitamin C, vitamin D, DM, and melatonin. Supplemental oxygen as needed to maintain saturations. We will forego the CRP, LDH, ferritin as the patient has a fracture and cellul itis which would also elevate these results. (3) Sepsis Qualifiers: Sepsis type: sepsis due to unspecified organism Sepsis acute organ dysfun ction status: without acute organ dysfunction Qualified Code(s): A41.9 - Sepsis, unspecified organism Is this a current diagnosis for this admission?: Yes Plan: Improved; vital signs have stabilized, neutrophils remain elevated (82) though trending down. Lactic acid is normal. Patient presents with sepsis, presumably due to right ankle cellulitis, present on admission, evidenced by fever, tachycardia, tachypnea, thrombocytopenia, and elevated troponin. Cultures and antibiotics as above. He is fluid resuscitated with normal saline boluses and maintenance fluids. Discussed with Ortho, he will be placed on IV vancomycin and Ancef. Remaining management as above. (4) Avulsion fracture of ankle Qualifiers: Encounter type: initial encounter Fracture type: closed Laterality: right Qualified Code(s): S82.891A - Other fracture of right lower leg, initial encounter for closed fracture Is this a current diagnosis for this admission?: Yes Plan: Velcro stirrup splint in place. May weight-bear. [place] as needed for pain. Antiemetics as needed. Orthopedics is consulted; appreciate Dr. Cortes's evaluation recommendations. (5) Elevated troponin Is this a current diagnosis for this admission?: Yes Plan: Patient denies chest pain. EKG shows normal sinus rhythm. Troponins have trended down slightly; 0.141-> 0.185-> 0.104. Remains chest pain-free. He will be monitored on continuous cardiac telemetry. He is placed on daily aspirin therapy. Continue serial troponins. The emergency department provider spoke with Dr. Tera beltrán who indicated that this could be a troponin leak related to his hypertension and sepsis. Consider cardiology consultation vs. outpatient follow up. (6) Hypertension Qualifiers: Hypertension type: essential hypertension Qualified Code(s): I10 - Essen tial (primary) hypertension Is this a current diagnosis for this admission?: Yes Plan: Improved today. Continue amlodipine nightly. IV Hydralazine as needed for blood pressure control. Cardiac diet. (7) Headache Qualifiers: Headache type: unspecified Headache chronicity pattern: acute headache Intractability: not intractable Qualified Code(s): R51 - Headache Is this a current diagnosis for this admission?: Yes Plan: IV fluid hydration. Obtain adequate blood pressure control. Analgesics as needed. Nonpharmacological interventions. (8) Tobacco dependence Is this a current diagnosis for this admission?: Yes Plan: Smoking cessation encouraged. Nicotine replacement therapies are provided.
[2020-04-22] MEDS: VANCOMYCIN HCL 1,250 MG in DEXTROSE 5%-WATER 250 ML IV SCH (18:35)
[2020-04-22] MEDS: MELATONIN 3 MG TABLET PO SCH (21:45)
[2020-04-22] MEDS: AMLODIPINE BESYLATE 5 MG TABLET PO SCH (21:46)
[2020-04-23] MEDS: OXYCODONE-ACETAMINOPHEN 5-325 MG TABLET PO PRN ×6 (00:23→22:20)
[2020-04-23] MEDS: HEPARIN SOD (PORCINE) 5,000 UNIT/ML 1 ML VIAL SUBCUT SCH ×3 (05:00→22:17)
[2020-04-23] MEDS: CEFAZOLIN 1 GM/D5W RTU 1 GM/50 ML RTUPB IV SCH (05:13)
[2020-04-23 06:13] LABS: HEMATOCRIT 36.9 % (37.9-51.0); HEMOGLOBIN 12.8 g/dL (13.5-17.0); MEAN CORPUSCULAR HGB CONC 34.7 g/dL (32.0-36.0); MEAN CORPUSCULAR VOLUME 84 fl (80-97); PLATELET COUNT 105 10^3/uL (150-450); RED BLOOD COUNT 4.42 10^6/uL (4.35-5.55); RED CELL DISTRIBUTION WIDTH 12.9 % (11.5-14.0); WHITE BLOOD COUNT 11.8 10^3/uL (4.0-10.5)
[2020-04-23] MEDS: VANCOMYCIN HCL 1,250 MG in DEXTROSE 5%-WATER 250 ML IV SCH ×2 (06:29→19:17)
[2020-04-23] MEDS: ZINC SULFATE 220 MG CAPSULE PO SCH (09:43)
[2020-04-23] MEDS: ASCORBIC ACID 500 MG TABLET PO SCH ×2 (09:43→18:09)
[2020-04-23] MEDS: DOCUSATE SODIUM 100 MG CAPSULE PO SCH (09:43)
[2020-04-23] MEDS: NICOTINE 14 MG/24 HR PATCH.TD24 TD SCH (09:43)
[2020-04-23] MEDS: ASPIRIN 81 MG TABLET, CHEWABLE PO SCH (09:43)
[2020-04-23] MEDS: FAMOTIDINE 20 MG TABLET PO SCH ×2 (09:43→22:20)
[2020-04-23] MEDS: POTASSIUM CHLORIDE 20 MEQ PACKET PO SCH (09:43)
[2020-04-23] MEDS: CHOLECALCIFEROL (D3) 400 UNIT TABLET PO SCH (09:44)
--- NOTE | 2020-04-23 11:06 | PDOC PROGRESS REPORT ---
Subjective Progress Note for:: 04/23/20 Subjective:: NANCIE SCHROEDER is a 39 year old male with a past medical history significant for hypertension and tobacco dependence with continuous use who presented to the emergency department with multiple complaints. The patient reports that he slipped on wet stairs 5 days ago. He developed ankle swelling, erythema, and pain approximately 2 days later associated with subjective fever, generalized body aches/malaise, mild nausea, and diarrhea. He notes that a day or 2 after that, he developed global headache, sore throat, shortness of breath, and chest discomfort. 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 04/23/2020. No acute events overnight. Patient complaining of vertigo, nausea, and persistent right ankle pain. Denies any fever, shortness of breath, chills, vomiting, diarrhea, constipation or any urinary symptoms. Reason For Visit: CELLULITIS, RIGHT MALLEOLUS AVULSION FRACTURE Physical Exam Vital Signs: Temp Pulse Resp BP Pulse Ox 98.7 F 90 18 113/60 99 04/23/20 07:58 04/23/20 07:58 04/23/20 07:58 04/23/20 07:58 04/23/20 07:58 Intake & Output 04/22/20 04/23/20 04/24/20 06:59 06:59 06:59 Intake Total 4533 2250 300 Output Total 850 2900 Balance 3683 -650 300 Weight 78.1 kg 78.1 kg General appearance: PRESENT: no acute distress, well-developed, well-nourished Head exam: PRESENT: atraumatic, normocephalic Respiratory exam: PRESENT: clear to auscultation nils. ABSENT: rales, rhonchi, wheezes Cardiovascular exam: PRESENT: RRR, systolic murmur. ABSENT: diastolic murmur, rubs GI/Abdominal exam: PRESENT: normal bowel sounds, soft. ABSENT: distended, guarding, mass, organolmegaly, rebound, tenderness Extremities exam: PRESENT: full ROM, joint swelling, tenderness, other - Right ankle swelling, tenderness, erythema and warmth, no sign of active discharge. Neurovascularly intact.. ABSENT: calf tenderness, clubbing, pedal edema Neurological exam: PRESENT: alert, awake, oriented to person, oriented to place, oriented to time, oriented to situation, CN II-XII grossly intact. ABSENT: motor sensory deficit Results Laboratory Results: 04/23/20 05:29 04/22/20 07:06 04/23/20 05:29 WBC 11.8 H RBC 4.42 Hgb 12.8 L Hct 36.9 L MCV 84 MCH 29.0 MCHC 34.7 RDW 12.9 Plt Count 105 L 04/21/20 13:30 Blood Blood Culture (PCR) - Final Staphylococcus Aureus 04/21/20 15:15 Blood Blood Culture (PCR) - Final Staphylococcus Aureus 04/21/20 04/21/20 04/21/20 15:15 15:15 19:00 Creatine Kinase 59 Troponin I 0.141 0.185 04/22/20 04/22/20 01:18 07:06 Creatine Kinase Troponin I 0.149 0.104 Impressions: Ankle X-Ray 04/21/20 11:50 IMPRESSION: 3 mm nondisplaced avulsion fracture from the posterolateral corner of the lateral malleolus, seen only on the oblique projection. Chest X-Ray 04/21/20 11:50 IMPRESSION: NO ACUTE FINDINGS. Assessment and Plan - Diagnosis (1) Cellulitis Qualifiers: Site of cellulitis: extremity Site of cellulitis of extremity: lower extremity Laterality: right Qualified Code(s): L03.115 - Cellulitis of right lower limb Is this a current diagnosis for this admission?: Yes Plan: Afebrile. Mild leukocytosis. Persistent pain and erythema. Blood cultures (4/4 bottles) MSSA. Orthopedics has been consulted; no intervention planned. Appreciate Dr. Cortes's assistance. Started on empiric broad-spectrum IV antibiotics. Day 3 IV antibiotics. Day 3 IV vancomycin. Day 1 IV Zosyn. Received 2 days of IV Ancef. Keep extremity elevated. Analgesics as needed. (2) MSSA bacteremia Is this a current diagnosis for this admission?: Yes Plan: Likely source skin. No sign or symptoms of endocarditis. Blood cultures (4/4 bottles) MSSA. Day 3 IV antibiotics. Day 3 IV vancomycin. Received 2 days of IV Ancef. Pending 2D echo. Repeat blood cultures. May need 4 to 6 weeks of IV antibiotics depending on 2D echo findings. (3) Avulsion fracture of ankle Qualifiers: Encounter type: initial encounter Fracture type: closed Laterality: right Qualified Code(s): S82.891A - Other fracture of right lower leg, initial encounter for closed fracture Is this a current diagnosis for this admission?: Yes Plan: Velcro stirrup splint in place. May weight-bear. Orthopedics is consulted. Recommendations noted. No intervention planned. Appreciate Dr. Cortes's evaluation recommendations. Opioid and non-opioid analgesics. Monitor for respiratory depression. Fall precautions. DVT prophylaxis. (4) Elevated troponin Is this a current diagnosis for this admission?: Yes Plan: Patient denies chest pain. EKG shows normal sinus rhythm. Troponins have trended down slightly; 0.141-> 0.185-> 0.104. Remains chest pain-free. He will be monitored on continuous cardiac telemetry. He is placed on daily aspirin therapy. Continue serial troponins. The emergency department provider spoke with Dr. Tera beltrán who indicated that this could be a troponin leak related to his hypertension and sepsis. Consider cardiology consultation vs. outpatient follow up. (5) Headache Qualifiers: Headache type: unspecified Headache chronicity pattern: acute headache Intractability: not intractable Qualified Code(s): R51 - Headache Is this a current diagnosis for this admission?: Yes Plan: IV fluid hydration. Obtain adequate blood pressure control. Analgesics as needed. Nonpharmacological interventions. (6) Hypertension Qualifiers: Hypertension type: essential hypertension Qualified Code(s): I10 - Essential (primary) hypertension Is this a current diagnosis for this admission?: Yes Plan: Euvolemic. Normotensive. Continue amlodipine nightly. IV Hydralazine as needed for blood pressure control. Cardiac diet. (7) Sepsis Qualifiers: Sepsis type: sepsis due to unspecified organism Sepsis acute organ dysfunction status: without acute organ dysfunction Qualified Code(s): A41.9 - Sepsis, unspecified organism Is this a current diagnosis for this admission?: Yes Plan: Resolved. Vitals WNL. Due to MSSA. Presented with fever, tachycardia, tachypnea, thrombocytopenia, and elevated troponin. Plan as above. (8) Suspected COVID-19 virus infection Is this a current diagnosis for this admission?: Yes Plan: Patient presents with systemic symptoms that cannot be entirely explained by his cellulitis; fever, chills, malaise, headache, sore throat, shortness of breath, chest discomfort, nausea, diarrhea. Is noted to have a low-grade temperature, tachycardia, and tachypnea, but maintaining oxygen saturations on room air. COVID test pending. D-dimer is elevated; will hold on full dose anticoagulation as patient does not have hypoxia. Should this develop, and anticoagulation, will start Heparin gtt given acute ankle fracture. He will be placed on vitamin C, vitamin D, DM, and melatonin. Supplemental oxygen as needed to maintain saturations. We will forego the CRP, LDH, ferritin as the patient has a fracture and cellulitis which would also elevate these results. (9) Tobacco dependence Is this a current diagnosis for this admission?: Yes Plan: Smoking cessation encouraged. Nicotine replacement therapies are provided.
[2020-04-23] MEDS: PIPERACILLIN SODIUM/TAZOBACTAM 4.5 GM in NORMAL SALINE 100 ML IV SCH ×2 (11:29→18:10)
[2020-04-23] MEDS: MECLIZINE HCL 12.5 MG TABLET PO PRN (11:29)
--- NOTE | 2020-04-23 16:54 | PDOC PROGRESS REPORT ---
Subjective Progress Note for:: 04/23/20 Subjective:: Patient does report some mild improvement overnight in regards to the pain on the lateral aspect of his right ankle. Increased swelling and tenderness in the left hand dorsally. Reason For Visit: CELLULITIS, RIGHT MALLEOLUS AVULSION FRACTURE Physical Exam Vital Signs: Temp Pulse Resp BP Pulse Ox 98.8 F 76 19 124/74 99 04/23/20 11:24 04/23/20 14:00 04/23/20 11:24 04/23/20 11:24 04/23/20 11:24 Intake & Output 04/22/20 04/23/20 04/24/20 06:59 06:59 06:59 Intake Total 4533 2250 400 Output Total 850 2900 Balance 3683 -650 400 Weight 78.1 kg 78.1 kg Physical Exam: No acute distress alert and oriented x3 Right lower extremity -Pulses 2+ distally -Compartments soft -Sensation grossly intact to L3-4-5 S1 -Motor grossly intact to EHL TA gastroc and quad -No tenderness to palpation at the medial tibiotalar joint. No palpable fluctuance or appreciable effusion of the right ankle. -Erythema and swelling on the lateral aspect of the ankle. No fluctuance or appreciable abscess. The intensity of the erythema about the lateral malleolus is improved, however the overall area of cellulitic change and swelling has expanded to include the dorsum of the foot and the majority of the way down the lateral rays -No purulent drainage, mild abrasions present -Range of motion within extremes without pain. Left upper extremity upper extremity sensation grossly intact to radial median and ulnar nerve. upper extremity motor function grossly intact to radian median ulnar nerve AIN and PIN Pulses 2+, capillary refill less than 2 seconds No deformity noted full range of motion of the elbow shoulder wrist and fingers without pain Compartments soft, no tenderness to palpation skin intact, some slight abrasions of the dorsum of the left hand. No obvious nidus for any potential infection. There is some swelling in the left hand as compared to the right. This appears edematous and diffuse without focal etiology or erythema at this time. Potentially early infectious process Results Laboratory Results: 04/23/20 05:29 04/22/20 07:06 04/23/20 05:29 WBC 11.8 H RBC 4.42 Hgb 12.8 L Hct 36.9 L MCV 84 MCH 29.0 MCHC 34.7 RDW 12.9 Plt Count 105 L 04/21/20 13:30 Blood Blood Culture (PCR) - Final Staphylococcus Aureus 04/21/20 15:15 Blood Blood Culture (PCR) - Final Staphylococcus Aureus 04/21/20 04/21/20 04/21/20 15:15 15:15 19:00 Creatine Kinase 59 Troponin I 0.141 0.185 04/22/20 04/22/20 01:18 07:06 Creatine Kinase Troponin I 0.149 0.104 Impressions: Ankle X-Ray 04/21/20 11:50 IMPRESSION: 3 mm nondisplaced avulsion fracture from the posterolateral corner of the lateral malleolus, seen only on the oblique projection. Chest X-Ray 04/21/20 11:50 IMPRESSION: NO ACUTE FINDINGS. Assessment & Plan - Diagnosis (1) Avulsion fracture of ankle Qualifiers: Encounter type: initial encounter Fracture type: closed Laterality: right Qualified Code(s): S82.891A - Other fracture of right lower leg, initial encounter for closed fracture Is this a current diagnosis for this admission?: Yes (2) Cellulitis Qualifiers: Site of cellulitis: extremity Site of cellulitis of extremity: lower extremity Laterality: right Qualified Code(s): L03.115 - Cellulitis of right lower limb Is this a current diagnosis for this admission?: Yes (3) Cellulitis of right ankle Is this a current diagnosis for this admission?: Yes Plan: Still no palpable fluctuance or identifiable source of cellulitis. No identifiable drainable abscess. MRI this time would likely only show cellulitic changes, may not have an appreciable nidus for infection. Will follow until tomorrow for any further improvement. May consider MRI at that time (4) Cellulitis of left hand Is this a current diagnosis for this admission?: Yes Plan: Patient appears to be developing some edema in the left hand. This may be associated with his IV or positioning, may be early cellulitic process. No identifiable nidus of infection, no erythema at this time. Continue current antibiotics. - Time Time Spent with patient: Less than 15 minutes
[2020-04-23] MEDS: MELATONIN 3 MG TABLET PO SCH (22:19)
[2020-04-23] MEDS: AMLODIPINE BESYLATE 5 MG TABLET PO SCH (22:20)
[2020-04-24] MEDS: PIPERACILLIN SODIUM/TAZOBACTAM 4.5 GM in NORMAL SALINE 100 ML IV SCH ×5 (01:00→23:49)
[2020-04-24] MEDS: OXYCODONE-ACETAMINOPHEN 5-325 MG TABLET PO PRN ×5 (02:28→20:00)
[2020-04-24] MEDS: HEPARIN SOD (PORCINE) 5,000 UNIT/ML 1 ML VIAL SUBCUT SCH ×3 (05:01→22:06)
[2020-04-24] MEDS: VANCOMYCIN HCL 1,250 MG in DEXTROSE 5%-WATER 250 ML IV SCH ×2 (05:01→18:23)
[2020-04-24 07:21] LABS: ANION GAP 6 (5-19); BLOOD UREA NITROGEN 18 mg/dL (7-20); CALCIUM 8.1 mg/dL (8.4-10.2); CARBON DIOXIDE 24 mmol/L (22-30); CHLORIDE 104 mmol/L (98-107); GLUCOSE 102 mg/dL (75-110); POTASSIUM 3.6 mmol/L (3.6-5.0)
[2020-04-24 07:22] LABS: ABSOLUTE EOSINOPHILS # (AUTO) 0.1 10^3/uL (0.0-0.6); ABSOLUTE LYMPHOCYTES (AUTO) 1.2 10^3/uL (0.5-4.7); ABSOLUTE MONOCYTES (AUTO) 1.5 10^3/uL (0.1-1.4); ABSOLUTE NEUT (AUTO) 8.8 10^3/uL (1.7-8.2); BASOPHILS % (AUTO) 0.3 % (0-2); HEMATOCRIT 38.2 % (37.9-51.0); HEMOGLOBIN 13.1 g/dL (13.5-17.0); LYMPHOCYTES % (AUTO) 10.5 % (13-45); MEAN CORPUSCULAR HEMOGLOBIN 28.4 pg (27.0-33.4); MEAN CORPUSCULAR HGB CONC 34.2 g/dL (32.0-36.0); MEAN CORPUSCULAR VOLUME 83 fl (80-97); MONOCYTES % (AUTO) 12.6 % (3-13); PLATELET COUNT 155 10^3/uL (150-450); RED CELL DISTRIBUTION WIDTH 13.3 % (11.5-14.0); SEGMENTED NEUTROPHILS % (AUTO) 75.6 % (42-78); TOTAL CELLS COUNTED % (AUTO) 100 %; WHITE BLOOD COUNT 11.6 10^3/uL (4.0-10.5)
[2020-04-24 07:26] LABS: VANCOMYCIN,TROUGH 13.6 ug/mL (5.0-20.0)
[2020-04-24] MEDS: ZINC SULFATE 220 MG CAPSULE PO SCH (09:52)
[2020-04-24] MEDS: CHOLECALCIFEROL (D3) 400 UNIT TABLET PO SCH (09:52)
[2020-04-24] MEDS: FAMOTIDINE 20 MG TABLET PO SCH ×2 (09:52→22:09)
[2020-04-24] MEDS: ASPIRIN 81 MG TABLET, CHEWABLE PO SCH (09:52)
[2020-04-24] MEDS: DOCUSATE SODIUM 100 MG CAPSULE PO SCH (09:52)
[2020-04-24] MEDS: ASCORBIC ACID 500 MG TABLET PO SCH ×2 (09:52→17:33)
[2020-04-24] MEDS: POTASSIUM CHLORIDE 20 MEQ PACKET PO SCH (09:53)
[2020-04-24] MEDS: NICOTINE 14 MG/24 HR PATCH.TD24 TD SCH (09:53)
[2020-04-24 15:02] LABS: C-REACTIVE PROTEIN 165.5 mg/L (<10.0)
[2020-04-24] MEDS: PILOCARPINE HCL 4% PO SCH ×2 (15:10→17:33)
[2020-04-24 15:40] LABS: FOLATE 8.25 ng/mL (>2.76)
--- NOTE | 2020-04-24 16:03 | PDOC PROGRESS REPORT ---
Subjective Progress Note for:: 04/24/20 Subjective:: He is doing well today. He reports some improvement in both his left hand as well as right ankle. He feels like he is overall getting better and is hopeful. No acute changes overnight. No new symptoms. Ability to move the ankle has improved. Reason For Visit: CELLULITIS, RIGHT MALLEOLUS AVULSION FRACTURE Physical Exam Vital Signs: Temp Pulse Resp BP Pulse Ox 98.8 F 103 H 16 121/67 99 04/24/20 11:38 04/24/20 11:38 04/24/20 11:38 04/24/20 11:38 04/24/20 11:38 Intake & Output 04/23/20 04/24/20 04/25/20 06:59 06:59 06:59 Intake Total 2250 7771 100 Output Total 2900 4115 Balance -650 3656 100 Weight 78.1 kg 78.7 kg Physical Exam: No acute distress alert and oriented x3 Right lower extremity -Pulses 2+ distally -Compartments soft -Sensation grossly intact to L3-4-5 S1 -Motor grossly intact to EHL TA gastroc and quad -No tenderness to palpation at the medial tibiotalar joint. No palpable fluctuance or appreciable effusion of the right ankle. -Erythema and swelling on the lateral aspect of the ankle. No fluctuance or appreciable abscess. Overall the cellulitis appears improved today. It appears to be resolving however there is still some swelling. - Patient actively moves the ankle with an strength without pain he has the She can get worse we will schedule for sepsis. I write her prescription for the next I was seen 885 her tramadol) 5 which she is asking for pain 85 or less Second-I QuickFill he is having pain I like to get a J brace can distribute the knee here as soon as there is probably some sort of effusion with a conversation is elevated but I have asked her to get a prescription from an axillary pain is a mostly in any provocative activity with the use of collar choice -No purulent drainage, mild abrasions present Left upper extremity upper extremity sensation grossly intact to radial median and ulnar nerve. upper extremity motor function grossly intact to radian median ulnar nerve AIN and PIN Pulses 2+, capillary refill less than 2 seconds No deformity noted, full range of motion of the elbow shoulder wrist and fingers without pain Compartments soft, no tenderness to palpation skin intact, some slight abrasions of the dorsum of the left hand. No obvious nidus for any potential infection. Swelling is still present but improved over physical appearance yesterday. Results Laboratory Results: 04/24/20 05:56 04/24/20 05:56 04/24/20 04/24/20 04/24/20 05:56 05:56 13:42 WBC 11.6 H RBC 4.60 Hgb 13.1 L Hct 38.2 MCV 83 MCH 28.4 MCHC 34.2 RDW 13.3 Plt Count 155 Seg Neutrophils % 75.6 Sodium 133.5 L Potassium 3.6 Chloride 104 Carbon Dioxide 24 Anion Gap 6 BUN 18 Creatinine 1.03 Est GFR ( Amer) > 60 Glucose 102 Calcium 8.1 L C-Reactive Protein 165.5 H Vitamin B12 Folate 04/24/20 13:42 WBC RBC Hgb Hct MCV MCH MCHC RDW Plt Count Seg Neutrophils % Sodium Potassium Chloride Carbon Dioxide Anion Gap BUN Creatinine Est GFR ( Amer) Glucose Calcium C-Reactive Protein Vitamin B12 396.0 Folate 8.25 04/21/20 13:30 Blood Blood Culture (PCR) - Final Staphylococcus Aureus 04/21/20 15:15 Blood Blood Culture (PCR) - Final Staphylococcus Aureus 04/21/20 12:17 Throat Throat Culture - Final NORMAL DANIELLE 04/21/20 04/21/20 04/21/20 15:15 15:15 19:00 Creatine Kinase 59 Troponin I 0.141 0.185 04/22/20 04/22/20 01:18 07:06 Creatine Kinase Troponin I 0.149 0.104 Impressions: Ankle X-Ray 04/21/20 11:50 IMPRESSION: 3 mm nondisplaced avulsion fracture from the posterolateral corner of the lateral malleolus, seen only on the oblique projection. Chest X-Ray 04/21/20 11:50 IMPRESSION: NO ACUTE FINDINGS. Assessment & Plan - Diagnosis (1) Avulsion fracture of ankle Qualifiers: Encounter type: initial encounter Fracture type: closed Laterality: right Qualified Code(s): S82.891A - Other fracture of right lower leg, initial encounter for closed fracture Is this a current diagnosis for this admission?: Yes (2) Cellulitis Qualifiers: Site of cellulitis: extremity Site of cellulitis of extremity: lower extremity Laterality: right Qualified Code(s): L03.115 - Cellulitis of right lower limb Is this a current diagnosis for this admission?: Yes (3) Cellulitis of right ankle Is this a current diagnosis for this admission?: Yes Plan: Given the ongoing duration of the cellulitis, will order MRI to evaluate for any infectious or other acute process. Continue current antibiotics Patient may bear weight as tolerated right lower extremity encourage range of motion activity Physical therapy (4) Cellulitis of left hand Is this a current diagnosis for this admission?: Yes Plan: This appears to be resolving without signs of ongoing inflammation or infectious process, swelling is likely associated with line placement. - Time Time Spent with patient: Less than 15 minutes
--- NOTE | 2020-04-24 16:08 | RADIOLOGY REPORT (SQ) ---
EXAM DESCRIPTION: MRI RT LOWER EXTREMITY WITHOUT IMAGES COMPLETED DATE/TIME: 04/24/2020 3:44 pm REASON FOR STUDY: osteomyelitis? COMPARISON: Right ankle films 04/21/2020 CT right ankle 04/17/2020 TECHNIQUE: Non contrasted non arthrogram MRI right ankle images acquired and stored on PACS. Multipl jose images include fat sensitive sequences as T1, fluid sensitive sequences as FST2/STIR, cartilage sensitive sequences as FSPD, and gradient echo sequences. LIMITATIONS: Metallic artifact over the distal tibial diaphysis from an intramedullary nail FINDINGS: BONE MARROW: Abnormal marrow signal is present with edema at in the distal tip of the late ral malleolus, worrisome for early changes of osteomyelitis. There is overlying skin thickening and edema. Findings are best shown on axial image 8/, and coronal image 16. EFFUSIONS: No subtalar or tibiotalar effusions. No loose bodies. OSSEOUS ARTICULATIONS: Normal tibiotalar, subtalar, talonavicular and calcaneocuboid joints. TALAR DOME AND TIBIAL PLAFOND: Normal cartilage. No osteochondral defect. ACHILLES TENDON: Intact without partial or full-thickness tear. No adjacent bursal fluid or edema. TIBIALIS ANTERIOR TENDON: Intact without edema at the 1st MT attachment. TIBIALIS POSTERIOR TENDON: Normal morphology and no edema at the navicular attachment. No tendon hendrix th fluid. FLEXOR HALLUCIS LONGUS AND FLEXOR DIGITORUM TENDONS: Normal morphology and no tendon sheath fluid. No edema of the os trigonum. PERONEUS LONGUS AND BREVIS TENDON: Minimal tendon sheath fluid. There is thinning of the peroneus br shoaib tendon at the level of the distal to the lateral malleolus. Peroneus longus is intact. No subl uxation ATFL, CFL, PTFL: Intact. No thickening or signal alteration. No jeimy-ligamentous fluid. DELTOID LIGAMENT: Visualized components intact. TARSAL TUNNEL: No masses. No muscle atrophy. SINUS TARSI: No fluid. No reactive marrow edema or erosions. PLANTAR FASCIA: No signal alteration or tear. ADJACENT SOFT TISSUES: There is diffuse subcutaneous edema throughout the dorsum of the foot OTHER: No other significant finding. IMPRESSION: Marrow edema along the distal fibula worrisome for early changes of osteomyelitis Overlying soft tissue cellulitis. Trace fluid in the peroneal tendon sheath. TECHNICAL DOCUMENTATION: JOB ID: [id number] 2010 [employer]- All Rights Reserved Reading location - IP/workstation name: [email or web address]
--- NOTE | 2020-04-24 16:42 | PDOC PROGRESS REPORT ---
Subjective Progress Note for:: 04/24/20 Subjective:: NANCIE SCHROEDER is a 39 year old male with a past medical history significant for hypertension and tobacco dependence with continuous use who presented to the emergency department with multiple complaints. The patient reports that he slipped on wet stairs 5 days ago. He developed ankle swelling, erythema, and pain approximately 2 days later associated with subjective fever, generalized body aches/malaise, mild nausea, and diarrhea. He notes that a day or 2 after that, he developed global headache, sore throat, shortness of breath, and chest discomfort. 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 04/23/2020. No acute events overnight. Patient complaining of vertigo, nausea, and persistent right ankle pain. Denies any fever, shortness of breath, chills, vomiting, diarrhea, constipation or any urinary symptoms. 04/24/2020. No acute events overnight. Vertigo nausea improved. Still complaining of right ankle persistent pain. Patient has developed distal left upper extremity swelling and erythema, denies any fever, chills, nausea, vomiting, diarrhea, constipation or any urinary symptoms. Patient is recently out of [facility] after being there for 6 years, denies any history of 60 days, is not sexually active, denies any tick bite or rashes, denies any history of arthritis, does admit being in the carrion since being this released from [facility]. Denies any morning stiffness. Reason For Visit: CELLULITIS, RIGHT MALLEOLUS AVULSION FRACTURE Physical Exam Vital Signs: Temp Pulse Resp BP Pulse Ox 98.8 F 103 H 16 121/67 99 04/24/20 11:38 04/24/20 11:38 04/24/20 11:38 04/24/20 11:38 04/24/20 11:38 Intake & Output 04/23/20 04/24/20 04/25/20 06:59 06:59 06:59 Intake Total 2250 7771 100 Output Total 2900 4115 Balance -650 3656 100 Weight 78.1 kg 78.7 kg General appearance: PRESENT: no acute distress, well-developed, well-nourished Head exam: PRESENT: atraumatic, normocephalic Teeth exam: PRESENT: poor dentation, other - Upper and lower partials. Dry cracked tongue. Kalosis of lips. Respiratory exam: PRESENT: clear to auscultation nils. ABSENT: rales, rhonchi, wheezes Cardiovascular exam: PRESENT: diastolic murmur, RRR, systolic murmur. ABSENT: rubs GI/Abdominal exam: PRESENT: normal bowel sounds, soft. ABSENT: distended, guarding, mass, organolmegaly, rebound, tenderness Extremities exam: PRESENT: full ROM, tenderness, other - Left ankle swelling, range of motion limited by pain. Mild erythema laterally. Left upper extremity swelling from elbow to dorsal aspect of the hand, tenderness over the carpal region, range of motion of the wrist limited due to pain. No rash. No lesi ons.. ABSENT: calf tenderness, clubbing, pedal edema Neurological exam: PRESENT: alert, awake, oriented to person, oriented to place, oriented to time, oriented to situation, CN II-XII grossly intact. ABSENT: motor sensory deficit Results Laboratory Results: 04/24/20 05:56 04/24/20 05:56 04/24/20 04/24/20 04/24/20 05:56 05:56 13:42 WBC 11.6 H RBC 4.60 Hgb 13.1 L Hct 38.2 MCV 83 MCH 28.4 MCHC 34.2 RDW 13.3 Plt Count 155 Seg Neutrophils % 75.6 Sodium 133.5 L Potassium 3.6 Chloride 104 Carbon Dioxide 24 Anion Gap 6 BUN 18 Creatinine 1.03 Est GFR ( Amer) > 60 Glucose 102 Calcium 8.1 L C-Reactive Protein 165.5 H Vitamin B12 Folate 04/24/20 13:42 WBC RBC Hgb Hct MCV MCH MCHC RDW Plt Count Seg Neutrophils % Sodium Potassium Chloride Carbon Dioxide Anion Gap BUN Creatinine Est GFR ( Amer) Glucose Calcium C-Reactive Protein Vitamin B12 396.0 Folate 8.25 04/21/20 13:30 Blood Blood Culture (PCR) - Final Staphylococcus Aureus 04/21/20 15:15 Blood Blood Culture (PCR) - Final Staphylococcus Aureus 04/21/20 12:17 Throat Throat Culture - Final NORMAL DANIELLE 04/21/20 04/21/20 04/21/20 15:15 15:15 19:00 Creatine Kinase 59 Troponin I 0.141 0.185 04/22/20 04/22/20 01:18 07:06 Creatine Kinase Troponin I 0.149 0.104 Impressions: Ankle X-Ray 04/21/20 11:50 IMPRESSION: 3 mm nondisplaced avulsion fracture from the posterolateral corner of the lateral malleolus, seen only on the oblique projection. Chest X-Ray 04/21/20 11:50 IMPRESSION: NO ACUTE FINDINGS. Lower Extremity MRI 04/24/20 00:00 IMPRESSION: Marrow edema along the distal fibula worrisome for early changes of osteomyelitis Overlying soft tissue cellulitis. Trace fluid in the peroneal tendon sheath. Assessment and Plan - Diagnosis (1) Oligoarthritis Is this a current diagnosis for this admission?: Yes Plan: Presented with right ankle swelling and erythema and a avulsion fracture with minimal trauma. 04/24/2020 patient developed left distal upper extremity, swelling, tenderness and limited range of motion of the left wrist. Denies any trauma. Patient also have angular colitis bilaterally with severely dried and cracked tongue. He is also missing most of his teeth and wearing partials. He denies any history of inflammatory bowel disease, any rheumatological disorder, any history of rash or STDs. Patient recently released from [facility]. Denies being sexually active. Not having any hepatitis or HIV. Denies any morning stiffness oral or genital lesions, or any vision changes. Patient admits to being in the carrion recently but denies any tick bites or rashes. CRP 165.5. Sed rate 73. B12 396. Vitamin D 33.2. Folate 8.25. Rheumatoid factor 8.6. HIV negative. Pending hepatitis panel. Pending Lyme serology. Pending CRIS antibodies. Pending vitamin A, vitamin B1, vitamin B 5, vitamin B 7 (2) Cellulitis Qualifiers: Site of cellulitis: extremity Site of cellulitis of extremity: lower extremity Laterality: right Qualified Code(s): L03.115 - Cellulitis of right lower limb Is this a current diagnosis for this admission?: Yes Plan: Afebrile. Mild leukocytosis. Persistent pain and erythema. Blood cultures (4/4 bottles) MSSA. Orthopedics has been consulted; no intervention planned. Appreciate Dr. Cortes's assistance. Started on empiric broad-spectrum IV antibiotics. Day 4 IV antibiotics. Day 4 IV vancomycin. Day 2 IV Zosyn. Received 2 days of IV Ancef. Keep extremity elevated. Analgesics as needed. (3) MSSA bacteremia Is this a current diagnosis for this admission?: Yes Plan: Likely source skin. No sign or symptoms of endocarditis. Blood cultures (4/4 bottles) MSSA. Day 4 IV antibiotics. Day 4 IV vancomycin. Received 2 days of IV Ancef. Pending 2D echo. Repeat blood cultures. May need 4 to 6 weeks of IV antibiotics depending on 2D echo findings. (4) Avulsion fracture of ankle Qualifiers: Encounter type: initial encounter Fracture type: closed Laterality: right Qualified Code(s): S82.891A - Other fracture of right lower leg, initial encounter for closed fracture Is this a current diagnosis for this admission?: Yes Plan: Velcro stirrup splint in place. May weight-bear. Orthopedics is consulted. Recommendations noted. No intervention planned. Appreciate Dr. Cortes's evaluation recommendations. Opioid and non-opioid analgesics. Monitor for respiratory depression. Fall precautions. DVT prophylaxis. (5) Elevated troponin Is this a current diagnosis for this admission?: Yes Plan: Patient denies chest pain. EKG shows normal sinus rhythm. Troponins have trended down slightly; 0.141-> 0.185-> 0.104. Remains chest pain-free. He will be monitored on continuous cardiac telemetry. He is placed on daily aspirin therapy. Continue serial troponins. The emergency department provider spoke with Dr. Tera beltrán who indicated that this could be a troponin leak related to his hypertension and sepsis. Consider cardiology consultation vs. outpatient follow up. (6) Headache Qualifiers: Headache type: unspecified Headache chronicity pattern: acute headache Intractability: not intractable Qualified Code(s): R51 - Headache Is this a current diagnosis for this admission?: Yes Plan: IV fluid hydration. Obtain adequate blood pressure control. Analgesics as needed. Nonpharmacological interventions. (7) Hypertension Qualifiers: Hypertension type: essential hypertension Qualified Code(s): I10 - Essential (primary) hypertension Is this a current diagnosis for this admission?: Yes Plan: Euvolemic. Normotensive. Continue amlodipine nightly. IV Hydralazine as needed for blood pressure control. Cardiac diet. (8) Sepsis Qualifiers: Sepsis type: sepsis due to unspecified organism Sepsis acute organ dysfunction status: without acute organ dysfunction Qualified Code(s): A41.9 - Sepsis, unspecified organism Is this a current diagnosis for this admission?: Yes Plan: Resolved. Vitals WNL. Due to MSSA. Presented with fever, tachycardia, tachypnea, thrombocytopenia, and elevated troponin. Plan as above. (9) Suspected COVID-19 virus infection Is this a current diagnosis for this admission?: Yes Plan: Patient presents with systemic symptoms that cannot be entirely explained by his cellulitis; fever, chills, malaise, headache, sore throat, shortness of breath, chest discomfort, nausea, diarrhea. Is noted to have a low-grade temperature, tachycardia, and tachypnea, but maintaining oxygen saturations on room air. COVID-19 negative. D-dimer is elevated; will hold on full dose anticoagulation as patient does not have hypoxia. Should this develop, and anticoagulation, will start Heparin gtt given acute ankle fracture. He will be placed on vitamin C, vitamin D, DM, and melatonin. Supplemental oxygen as needed to maintain saturations. We will forego the CRP, LDH, ferritin as the patient has a fracture and cellulitis which would also elevate these results. (10) Tobacco dependence Is this a current diagnosis for this admission?: Yes Plan: Smoking cessation encouraged. Nicotine replacement therapies are provided.
[2020-04-24 18:09] LABS: CHLAM PCR NOT DETECTED (NOT DETECT)
[2020-04-24] MEDS: AMLODIPINE BESYLATE 5 MG TABLET PO SCH (22:09)
[2020-04-24] MEDS: MELATONIN 3 MG TABLET PO SCH (22:09)
--- NOTE | 2020-04-24 23:10 | XCELERA REPORT ---
[address] [address] Transthoracic Echocardiogram Report Name: NANCIE SCHROEDER Age: 39 yrs Gender: Male : 1980 Patient Status: Inpatient Patient Location: [address] [place], [place] [id number] Study Date: 04/24/2020 01:06 PM Height: 70 in Weight: 172 lb BSA: 2.0 m2 Procedure: A two-dimensional transthoracic echocardiogram with color flow and Doppler was performed. The study was technically difficult with many images being suboptimal in quality. Reason For Study: MSSA Bacteremia / Endocarditis. History: MSSA Bacteremia / Endocarditis. Ordering Physician: CHAYITO BOUDREAUX Performed By: Fátima Estrada Interpretation Summary Discussed AV findings with Dr Silva. The left ventricle is normal in size. There is normal left ventricular wall thickness. LV EF is 65% Left ventricular systolic function is normal. Doppler measurements suggest normal left ventricular diastolic function The left ventricular wall motion is normal. There is no thrombus. No ASD ,VSD,or PFO seen. The right ventricle is normal in size and function. The right atrium is normal. The left atrial size is normal. There is no evidence of mitral valve prolapse. There is no vegetation seen on the mitral valve. There is no mitral valve stenosis. There is a trace amount of mitral regurgitation There is a moderate size vegetation or mass on the aortic valve. There is mild aortic stenosis There is no LVOT obstruction. There is a mild amount of aortic regurgitation There is no tricuspid stenosis. No tricuspid regurgitation. Tricuspid regurgitation jet envelope not well defined to measure RV systolic pressure accurately. There is no pulmonic valvular stenosis. There is no pulmonic valvular regurgitation. The aortic root is normal size. There is no pericardial effusion. Discussed AV findings with Dr Silva. MMode/2D Measurements & Calculations RVDd: 2.3 cm LVIDd: 5.4 cm FS: 36.6 % Ao root diam: 3.0 cm IVSd: 0.88 cm LVIDs: 3.4 cm EDV(Teich): 142.7 ml Ao root area: 7.3 cm2 LVPWd: 1.0 cm ESV(Teich): 48.8 ml EF(Teich): 65.8 % Doppler Measurements & Calculations MV E max nelia: MV dec slope: Ao V2 max: AI max nelia: 127.5 cm/sec 760.0 cm/sec2 203.4 cm/sec 377.1 cm/sec MV A max nelia: MV dec time: Ao max PG: AI max P.0 mmHg 91.5 cm/sec 0.17 sec 16.6 mmHg AI dec slope: MV E/A: 1.4 169.6 cm/sec2 AI P1/2t: 651.2 msec LV V1 max PG: PA V2 max: 13.4 mmHg 105.2 cm/sec LV V1 max: PA max P.4 mmHg 183.1 cm/sec Left Ventricle The left ventricle is normal in size. There is normal left ventricular wall thickness. LV EF is 65%. Left ventricular systolic function is normal. Doppler measurements suggest normal left ventricular diastolic function. The left ventricular wall motion is normal. There is no thrombus. No ASD ,VSD,or PFO seen. Right Ventricle The right ventricle is normal in size and function. Atria The right atrium is normal. The left atrial size is normal. Mitral Valve There is no evidence of mitral valve prolapse. There is no vegetation seen on the mitral valve. There is no mitral valve stenosis. There is a trace amount of mitral regurgitation. Aortic Valve There is a moderate size vegetation or mass on the aortic valve. There is mild aortic stenosis. There is no LVOT obstruction. There is a mild amount of aortic regurgitation. Tricuspid Valve There is no tricuspid stenosis. No tricuspid regurgitation. Tricuspid regurgitation jet envelope not well defined to measure RV systolic pressure accurately. Pulmonic Valve There is no pulmonic valvular stenosis. There is no pulmonic valvular regurgitation. Great Vessels The aortic root is normal size. The inferior vena cava was not well visualized. The inferior vena cava appeared normal and decreased > 50% with respiration (RAP 5-10 mmHg). Effusions There is no pericardial effusion. : CHAYITO BOUDREAUX Lakshmi
[2020-04-24] MEDS: MECLIZINE HCL 12.5 MG TABLET PO PRN (23:58)
[2020-04-25] MEDS: OXYCODONE-ACETAMINOPHEN 5-325 MG TABLET PO PRN ×6 (04:35→21:35)
[2020-04-25] MEDS: HEPARIN SOD (PORCINE) 5,000 UNIT/ML 1 ML VIAL SUBCUT SCH ×3 (05:54→21:36)
[2020-04-25] MEDS: PIPERACILLIN SODIUM/TAZOBACTAM 4.5 GM in NORMAL SALINE 100 ML IV SCH ×3 (05:55→17:18)
[2020-04-25] MEDS: VANCOMYCIN HCL 1,250 MG in DEXTROSE 5%-WATER 250 ML IV SCH ×2 (06:22→18:11)
[2020-04-25 06:37] LABS: HEPATITS B SURFACE ANTIGEN Negative (Negative)
[2020-04-25 07:05] LABS: HEPATITIS C VIRUS ANTIBODY >11.0 s/co ratio (0.0-0.9)
[2020-04-25] MEDS: MECLIZINE HCL 12.5 MG TABLET PO PRN ×2 (09:08→17:20)
[2020-04-25] MEDS: PILOCARPINE HCL 4% PO SCH ×3 (09:08→18:11)
[2020-04-25] MEDS: ASPIRIN 81 MG TABLET, CHEWABLE PO SCH (09:10)
[2020-04-25] MEDS: POTASSIUM CHLORIDE 20 MEQ PACKET PO SCH (09:10)
[2020-04-25] MEDS: ZINC SULFATE 220 MG CAPSULE PO SCH (09:10)
[2020-04-25] MEDS: ASCORBIC ACID 500 MG TABLET PO SCH ×2 (09:10→17:18)
[2020-04-25] MEDS: FAMOTIDINE 20 MG TABLET PO SCH ×2 (09:10→21:35)
[2020-04-25] MEDS: CHOLECALCIFEROL (D3) 400 UNIT TABLET PO SCH (09:10)
[2020-04-25] MEDS: NICOTINE 14 MG/24 HR PATCH.TD24 TD SCH (09:10)
[2020-04-25] MEDS: DOCUSATE SODIUM 100 MG CAPSULE PO SCH (09:10)
--- NOTE | 2020-04-25 10:12 | PDOC PROGRESS REPORT ---
Subjective Progress Note for:: 04/25/20 Subjective:: Patient reports further improvement, decrease swelling in left hand and improvement in both pain and ability to move left hand and right foot. No overnight events Reason For Visit: CELLULITIS, RIGHT MALLEOLUS AVULSION FRACTURE Physical Exam Vital Signs: Temp Pulse Resp BP Pulse Ox 99.3 F 88 12 122/62 99 04/24/20 19:04 04/24/20 19:04 04/24/20 19:04 04/24/20 19:04 04/24/20 19:04 Intake & Output 04/24/20 04/25/20 04/26/20 06:59 06:59 06:59 Intake Total 7771 3450 250 Output Total 4115 3450 Balance 3656 0 250 Weight 78.7 kg 78.7 kg Physical Exam: Right lower extremity -Pulses 2+ distally -Compartments soft -Sensation grossly intact to L3-4-5 S1 -Motor grossly intact to EHL TA gastroc and quad -No tenderness to palpation at the medial tibiotalar joint. No palpable fluctuance or appreciable effusion of the right ankle. -Erythema and swelling on the lateral aspect of the ankle. No fluctuance or appreciable abscess. Overall the cellulitis appears improved today. Swelling continues to decrease, erythema improved and appears to be resolving. Wrinkle sign present. - Patient actively moves the ankle with an strength without pain he has the -No purulent drainage, mild abrasions present Left upper extremity upper extremity sensation grossly intact to radial median and ulnar nerve. upper extremity motor function grossly intact to radian median ulnar nerve AIN and PIN Pulses 2+, capillary refill less than 2 seconds No deformity noted, full range of motion of the elbow shoulder wrist and fingers without pain Compartments soft, no tenderness to palpation skin intact, some slight abrasions of the dorsum of the left hand. No obvious nidus for any potential infection. Swelling much improved today Results Laboratory Results: 04/24/20 05:56 04/24/20 05:56 04/24/20 04/24/20 13:42 13:42 C-Reactive Protein 165.5 H Vitamin B12 396.0 Folate 8.25 04/21/20 13:30 Blood Blood Culture (PCR) - Final Staphylococcus Aureus 04/21/20 15:15 Blood Blood Culture (PCR) - Final Staphylococcus Aureus 04/21/20 12:17 Throat Throat Culture - Final NORMAL DANIELLE 04/21/20 04/21/20 04/21/20 15:15 15:15 19:00 Creatine Kinase 59 Troponin I 0.141 0.185 04/22/20 04/22/20 01:18 07:06 Creatine Kinase Troponin I 0.149 0.104 Impressions: Ankle X-Ray 04/21/20 11:50 IMPRESSION: 3 mm nondisplaced avulsion fracture from the posterolateral corner of the lateral malleolus, seen only on the oblique projection. Chest X-Ray 04/21/20 11:50 IMPRESSION: NO ACUTE FINDINGS. Lower Extremity MRI 04/24/20 00:00 IMPRESSION: Marrow edema along the distal fibula worrisome for early changes of osteomyelitis Overlying soft tissue cellulitis. Trace fluid in the peroneal tendon sheath. Assessment & Plan - Diagnosis (1) Avulsion fracture of ankle Qualifiers: Encounter type: initial encounter Fracture type: closed Laterality: right Qualified Code(s): S82.891A - Other fracture of right lower leg, initial encounter for closed fracture Is this a current diagnosis for this admission?: Yes Plan: Weightbearing as tolerated in a cam walker boot until seen in the office. (2) Cellulitis Qualifiers: Site of cellulitis: extremity Site of cellulitis of extremity: lower extremity Laterality: right Qualified Code(s): L03.115 - Cellulitis of right lower limb Is this a current diagnosis for this admission?: Yes (3) Cellulitis of right ankle Is this a current diagnosis for this admission?: Yes Plan: I reviewed the MRI which does show some edema in the lateral malleolus. The patient did have a traumatic injury striking his lateral malleolus against a step. This alone could have led to that edema. The MRI does not show a area of fluctuance or a drainable abscess. Given these findings it is likely has cellulitis over a prior bone bruise Continue antibiotics for cellulitis, may also cover for the potential concern of osteomyelitis with 3 weeks worth of Bactrim or other broad coverage. I would be happy to see the patient my office in 2 to 3 weeks to see if there is resolution of symptoms and any concern for ongoing infectious process. (4) Cellulitis of left hand Is this a current diagnosis for this admission?: Yes - Time Time Spent with patient: Less than 15 minutes
[2020-04-25 15:00] LABS: ANTINUCLEAR ANTIBODIES Negative (Negative)
--- NOTE | 2020-04-25 16:47 | PDOC PROGRESS REPORT ---
Subjective Progress Note for:: 04/25/20 Subjective:: NANCIE SCHROEDER is a 39 year old male with a past medical history significant for hypertension and tobacco dependence with continuous use who presented to the emergency department with multiple complaints. The patient reports that he slipped on wet stairs 5 days ago. He developed ankle swelling, erythema, and pain approximately 2 days later associated with subjective fever, generalized body aches/malaise, mild nausea, and diarrhea. He notes that a day or 2 after that, he developed global headache, sore throat, shortness of breath, and chest discomfort. 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 04/23/2020. No acute events overnight. Patient complaining of vertigo, nausea, and persistent right ankle pain. Denies any fever, shortness of breath, chills, vomiting, diarrhea, constipation or any urinary symptoms. 04/24/2020. No acute events overnight. Vertigo nausea improved. Still complaining of right ankle persistent pain. Patient has developed distal left upper extremity swelling and erythema, denies any fever, chills, nausea, vomiting, diarrhea, constipation or any urinary symptoms. Patient is recently out of retirement after being there for 6 years, denies any history of 60 days, is not sexually active, denies any tick bite or rashes, denies any history of arthritis, does admit being in the carrion since being this released from retirement. Denies any morning stiffness. 04/25/2020. No acute events overnight. Patient still complaining of persistent right ankle pain, has developed some redness and swelling on the lateral aspect of the left foot with some Osler's nodes, left distal upper extremity swelling and tenderness improving, denies any fever, chills, nausea, vomiting, diarrhea, constipation or any urinary symptoms. Bilateral angular colitis improving. Reason For Visit: CELLULITIS, RIGHT MALLEOLUS AVULSION FRACTURE Physical Exam Vital Signs: Temp Pulse Resp BP Pulse Ox 97.8 F 86 16 111/57 L 100 04/25/20 14:00 04/25/20 14:00 04/25/20 14:00 04/25/20 14:00 04/25/20 14:00 Intake & Output 04/24/20 04/25/20 04/26/20 06:59 06:59 06:59 Intake Total 7771 3450 1187 Output Total 4115 3450 1425 Balance 3656 0 -238 Weight 78.7 kg 78.7 kg General appearance: PRESENT: no acute distress, well-developed, well-nourished Head exam: PRESENT: atraumatic, normocephalic Respiratory exam: PRESENT: clear to auscultation nils. ABSENT: rales, rhonchi, wheezes Cardiovascular exam: PRESENT: RRR, systolic murmur. ABSENT: diastolic murmur, rubs GI/Abdominal exam: PRESENT: normal bowel sounds, soft. ABSENT: distended, guarding, mass, organolmegaly, rebound, tenderness Extremities exam: PRESENT: joint swelling, other - Right ankle swelling, tenderness, limited range of motion, erythema on the lateral aspect. Left ankle lateral aspect erythema and tenderness, fifth toe plantar Osler's node, painful. Neurological exam: PRESENT: alert, awake, oriented to person, oriented to place, oriented to time, oriented to situation, CN II-XII grossly intact. ABSENT: motor sensory deficit Results Laboratory Results: 04/24/20 05:56 04/24/20 05:56 04/21/20 13:30 Blood Blood Culture (PCR) - Final Staphylococcus Aureus 04/21/20 13:30 Blood Blood Culture - Final Staphylococcus Aureus 04/21/20 15:15 Blood Blood Culture (PCR) - Final Staphylococcus Aureus 04/21/20 15:15 Blood Blood Culture - Final Staphylococcus Aureus 04/21/20 12:17 Throat Throat Culture - Final NORMAL DANIELLE 04/21/20 04/21/20 04/21/20 15:15 15:15 19:00 Creatine Kinase 59 Troponin I 0.141 0.185 04/22/20 04/22/20 01:18 07:06 Creatine Kinase Troponin I 0.149 0.104 Impressions: Ankle X-Ray 04/21/20 11:50 IMPRESSION: 3 mm nondisplaced avulsion fracture from the posterolateral corner of the lateral malleolus, seen only on the oblique projection. Chest X-Ray 04/21/20 11:50 IMPRESSION: NO ACUTE FINDINGS. Lower Extremity MRI 04/24/20 00:00 IMPRESSION: Marrow edema along the distal fibula worrisome for early changes of osteomyelitis Overlying soft tissue cellulitis. Trace fluid in the peroneal tendon sheath. Assessment and Plan - Diagnosis (1) Endocarditis due to methicillin susceptible Staphylococcus aureus (MSSA) Is this a current diagnosis for this admission?: Yes Plan: MSSA endocarditis with moderate aortic valve vegetation. 04/24/2020. 2D echo moderate sized aortic valve vegetation. Mild aortic stenosis. Mild aortic regurgitation. LVEF 65%. History of IV drug abuse 6 years ago. Was incarcerated in retirement. Recently released from retirement. Denies any IV drug abuse. Urine toxicology negative on admission. Presented with right ankle swelling, erythema and tenderness which was assumed to be cellulitis at the beginning. 04/21/2020. Right ankle x-ray. 3 mm nondisplaced able retraction for the posterior lateral corner of the lateral malleolus. 03/25/2020. MRI right lower extremity. Marrow edema along the distal fibula worrisome for early changes of osteomyelitis. Overlying soft tissue cellulitis. Trace fluid in the peroneal tendon sheath. Physical examination positive for pansystolic ejection murmur. Extensive Osler's nodes on bilateral lower extremity and left distal upper extremity. 04/21/2020. 4 out of 4 blood culture positive for MSSA. 04/23/2020. Repeat blood culture negative x48 hours. Day 5 IV antibiotics. Day 5 IV vancomycin. Day 3 IV Zosyn. Received 2 days of IV nafcillin. I have consulted cardiothoracic surgery to see if patient needs to be transferred to tertiary care center for possible intervention. I have also consulted infectious disease specialist for duration of antibiotics. (2) Oligoarthritis Is this a current diagnosis for this admission?: Yes Plan: Presented with right ankle swelling and erythema and a avulsion fracture with minimal trauma. Possibly septic emboli from endocarditis. Patient has extensive Osler's nodes. 04/24/2020 patient developed left distal upper extremity, swelling, tenderness and limited range of motion of the left wrist. Denies any trauma. 04/21/2020. Right ankle x-ray. 3 mm nondisplaced able retraction for the posterior lateral corner of the lateral malleolus. 03/25/2020. MRI right lower extremity. Marrow edema along the distal fibula worrisome for early changes of osteomyelitis. Overlying soft tissue cellulitis. Trace fluid in the peroneal tendon sheath. Patient also have angular colitis bilaterally with severely dried and cracked tongue. He is also missing most of his teeth and wearing partials. He denies any history of inflammatory bowel disease, any rheumatological disorder, any history of rash or STDs. Patient recently released from retirement. Denies being sexually active. Not having any hepatitis or HIV. Denies any morning stiffness oral or genital lesions, or any vision changes. Patient admits to being in the carrion recently but denies any tick bites or rashes. CRP 165.5. Sed rate 73. B12 396. Vitamin D 33.2. Folate 8.25. Antinuclear antibody negative. Chlamydia negative. Hepatitis A negative. Hepatitis B negative. Hepatitis C positive. HIV negative. Gonorrhea negative. Rheumatoid factor negative. Pending Lyme serology. Pending vitamin A, vitamin B1, vitamin B 5, vitamin B 7 (3) Cellulitis Qualifiers: Site of cellulitis: extremity Site of cellulitis of extremity: lower extremity Laterality: right Qualified Code(s): L03.115 - Cellulitis of right lower limb Is this a current diagnosis for this admission?: Yes Plan: Afebrile. Mild leukocytosis. Persistent pain and erythema. Blood cultures (4/4 bottles) MSSA. Orthopedics has been consulted; no intervention planned. Appreciate Dr. Cortes's assistance. Started on empiric broad-spectrum IV antibiotics. Day 5 IV antibiotics. Day 5 IV vancomycin. Day 3 IV Zosyn. Received 2 days of IV Ancef. Keep extremity elevated. Analgesics as needed. (4) MSSA bacteremia Is this a current diagnosis for this admission?: Yes Plan: As per #1. (5) Avulsion fracture of ankle Qualifiers: Encounter type: initial encounter Fracture type: closed Laterality: right Qualified Code(s): S82.891A - Other fracture of right lower leg, initial encounter for closed fracture Is this a current diagnosis for this admission?: Yes Plan: Velcro stirrup splint in place. May weight-bear. Orthopedics is consulted. Recommendations noted. No intervention planned. Appreciate Dr. Cortes's evaluation recommendations. Opioid and non-opioid analgesics. Monitor for respiratory depression. Fall precautions. DVT prophylaxis. (6) Elevated troponin Is this a current diagnosis for this admission?: Yes Plan: Patient denies chest pain. EKG shows normal sinus rhythm. Troponins have trended down slightly; 0.141-> 0.185-> 0.104. Remains chest pain-free. He will be monitored on continuous cardiac telemetry. He is placed on daily aspirin therapy. Continue serial troponins. The emergency department provider spoke with Dr. Tera beltrán who indicated that this could be a troponin leak related to his hypertension and sepsis. Consider cardiology consultation vs. outpatient follow up. (7) Headache Qualifiers: Headache type: unspecified Headache chronicity pattern: acute headache Intractability: not intractable Qualified Code(s): R51 - Headache Is this a current diagnosis for this admission?: Yes Plan: IV fluid hydration. Obtain adequate blood pressure control. Analgesics as needed. Nonpharmacological interventions. (8) Hypertension Qualifiers: Hypertension type: essential hypertension Qualified Code(s): I10 - Essential (primary) hypertension Is this a current diagnosis for this admission?: Yes Plan: Euvolemic. Normotensive. Continue amlodipine nightly. IV Hydralazine as needed for blood pressure control. Cardiac diet. (9) Sepsis Qualifiers: Sepsis type: sepsis due to unspecified organism Sepsis acute organ dysfunction status: without acute organ dysfunction Qualified Code(s): A41.9 - Sepsis, unspecified organism Is this a current diagnosis for this admission?: Yes Plan: Resolved. Vitals WNL. Due to MSSA. Presented with fever, tachycardia, tachypnea, thrombocytopenia, and elevated troponin. Plan as above. (10) Suspected COVID-19 virus infection Is this a current diagnosis for this admission?: Yes Plan: Patient presents with systemic symptoms that cannot be entirely explained by his cellulitis; fever, chills, malaise, headache, sore throat, shortness of breath, chest discomfort, nausea, diarrhea. Is noted to have a low-grade temperature, tachycardia, and tachypnea, but maintaining oxygen saturations on room air. COVID-19 negative. D-dimer is elevated; will hold on full dose anticoagulation as patient does not have hypoxia. Should this develop, and anticoagulation, will start Heparin gtt given acute ankle fracture. He will be placed on vitamin C, vitamin D, DM, and melatonin. Supplemental oxygen as needed to maintain saturations. We will forego the CRP, LDH, ferritin as the patient has a fracture and cellulitis which would also elevate these results. (11) Tobacco dependence Is this a current diagnosis for this admission?: Yes Plan: Smoking cessation encouraged. Nicotine replacement therapies are provided. (12) Hepatitis C Qualifiers: Viral hepatitis chronicity: unspecified Is this a current diagnosis for this admission?: Yes Plan: Hepatitis C antibody positive. History of hepatitis C. As per patient he was treated with Harvoni while in retirement. He was told that he was cured. Outpatient PCP and gastroenterology follow-up.
[2020-04-25] MEDS: MELATONIN 3 MG TABLET PO SCH (21:35)
[2020-04-25] MEDS: AMLODIPINE BESYLATE 5 MG TABLET PO SCH (21:35)
[2020-04-26] MEDS: PIPERACILLIN SODIUM/TAZOBACTAM 4.5 GM in NORMAL SALINE 100 ML IV SCH ×4 (00:53→17:11)
[2020-04-26] MEDS: OXYCODONE-ACETAMINOPHEN 5-325 MG TABLET PO PRN ×3 (01:33→09:51)
[2020-04-26] MEDS: HEPARIN SOD (PORCINE) 5,000 UNIT/ML 1 ML VIAL SUBCUT SCH ×3 (05:48→21:31)
[2020-04-26 05:49] LABS: HEMATOCRIT 36.1 % (37.9-51.0); HEMOGLOBIN 12.4 g/dL (13.5-17.0); MEAN CORPUSCULAR HEMOGLOBIN 28.7 pg (27.0-33.4); MEAN CORPUSCULAR HGB CONC 34.4 g/dL (32.0-36.0); MEAN CORPUSCULAR VOLUME 84 fl (80-97); RED BLOOD COUNT 4.32 10^6/uL (4.35-5.55); WHITE BLOOD COUNT 15.4 10^3/uL (4.0-10.5)
[2020-04-26 05:55] LABS: PLATELET COUNT 377 10^3/uL (150-450)
[2020-04-26 06:07] LABS: ALBUMIN 2.9 g/dL (3.5-5.0); ALKALINE PHOSPHATASE 113 U/L (38-126); ANION GAP 6 (5-19); ASPARTATE AMINO TRANSFERASE 22 U/L (17-59); BILIRUBIN,TOTAL 0.5 mg/dL (0.2-1.3); BLOOD UREA NITROGEN 17 mg/dL (7-20); CALCIUM 8.6 mg/dL (8.4-10.2); CARBON DIOXIDE 25 mmol/L (22-30); CHLORIDE 103 mmol/L (98-107); GLUCOSE 110 mg/dL (75-110); POTASSIUM 4.2 mmol/L (3.6-5.0); TOTAL PROTEIN 6.2 g/dL (6.3-8.2)
[2020-04-26] MEDS: VANCOMYCIN HCL 1,250 MG in DEXTROSE 5%-WATER 250 ML IV SCH (06:27)
[2020-04-26 07:11] LABS: LYME DISEASE IGM AB <0.80 index (0.00-0.79)
[2020-04-26] MEDS: POTASSIUM CHLORIDE 20 MEQ PACKET PO SCH (09:36)
[2020-04-26] MEDS: ASCORBIC ACID 500 MG TABLET PO SCH ×2 (09:36→17:11)
[2020-04-26] MEDS: ASPIRIN 81 MG TABLET, CHEWABLE PO SCH (09:36)
[2020-04-26] MEDS: FAMOTIDINE 20 MG TABLET PO SCH ×2 (09:36→21:31)
[2020-04-26] MEDS: PILOCARPINE HCL 4% PO SCH ×3 (09:37→17:11)
[2020-04-26] MEDS: CHOLECALCIFEROL (D3) 400 UNIT TABLET PO SCH (09:37)
[2020-04-26] MEDS: DOCUSATE SODIUM 100 MG CAPSULE PO SCH (09:37)
[2020-04-26] MEDS: NICOTINE 14 MG/24 HR PATCH.TD24 TD SCH (09:37)
[2020-04-26] MEDS: ZINC SULFATE 220 MG CAPSULE PO SCH (09:37)
[2020-04-26 10:08] LABS: APPEARANCE,URINE CLEAR; BILIRUBIN,URINE NEGATIVE (NEGATIVE); COLOR,URINE STRAW; GLUCOSE, URINE NEGATIVE (NEGATIVE); KETONES,URINE NEGATIVE (NEGATIVE); PROTEIN,URINE NEGATIVE (NEGATIVE); URINE SPECIFIC GRAVITY 1.008; UROBILINOGEN,URINE NEGATIVE mg/dL (<2.0)
[2020-04-26 11:54] LABS: VANCOMYCIN,TROUGH 22.8 ug/mL (5.0-20.0)
--- NOTE | 2020-04-26 14:21 | PDOC PROGRESS REPORT ---
Subjective Progress Note for:: 04/26/20 Subjective:: NANCIE SCHROEDER is a 39 year old male with a past medical history significant for hypertension and tobacco dependence with continuous use who presented to the emergency department with multiple complaints. The patient reports that he slipped on wet stairs 5 days ago. He developed ankle swelling, erythema, and pain approximately 2 days later associated with subjective fever, generalized body aches/malaise, mild nausea, and diarrhea. He notes that a day or 2 after that, he developed global headache, sore throat, shortness of breath, and chest discomfort. 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 04/23/2020. No acute events overnight. Patient complaining of vertigo, nausea, and persistent right ankle pain. Denies any fever, shortness of breath, chills, vomiting, diarrhea, constipation or any urinary symptoms. 04/24/2020. No acute events overnight. Vertigo nausea improved. Still complaining of right ankle persistent pain. Patient has developed distal left upper extremity swelling and erythema, denies any fever, chills, nausea, vomiting, diarrhea, constipation or any urinary symptoms. Patient is [facility] out of [facility] after being there for 6 years, denies any history of 60 days, is not sexually active, denies any tick bite or rashes, denies any history of arthritis, does admit being in the carrion since being this released from penitentiary. Denies any morning stiffness. 04/25/2020. No acute events overnight. Patient still complaining of persistent right ankle pain, has developed some redness and swelling on the lateral aspect of the left foot with some Osler's nodes, left distal upper extremity swelling and tenderness improving, denies any fever, chills, nausea, vomiting, diarrhea, constipation or any urinary symptoms. Bilateral angular colitis improving. 04/26/2020. Patient still complaining of persistent right ankle and left lateral foot pain, wants his Percocet to be changed is not sufficient, distal left upper extremity swelling has improved, still complaining of soreness, denies any fever, chills, nausea, vomiting, diarrhea, constipation or any urinary symptoms. Reason For Visit: CELLULITIS, RIGHT MALLEOLUS AVULSION FRACTURE Physical Exam Vital Signs: Temp Pulse Resp BP Pulse Ox 98.1 F 96 18 114/66 99 04/26/20 08:30 04/26/20 08:30 04/26/20 08:30 04/26/20 08:30 04/26/20 08:30 Intake & Output 04/25/20 04/26/20 04/27/20 06:59 06:59 06:59 Intake Total 3450 3259 350 Output Total 3450 4225 Balance 0 -966 350 Weight 78.7 kg 78.7 kg General appearance: PRESENT: no acute distress, well-developed, well-nourished Head exam: PRESENT: atraumatic, normocephalic Respiratory exam: PRESENT: clear to auscultation nils. ABSENT: rales, rhonchi, wheezes Cardiovascular exam: PRESENT: RRR, systolic murmur. ABSENT: diastolic murmur, rubs GI/Abdominal exam: PRESENT: normal bowel sounds, soft. ABSENT: distended, guarding, mass, organolmegaly, rebound, tenderness Extremities exam: PRESENT: full ROM, joint swelling, tenderness, other - Right ankle swelling and tenderness, right foot lateral aspect erythema and tenderness. No active discharge. Limited range of motion. Left distal foot lateral and plantar aspect Osler's nodes. Bilateral upper extremity Osler nodes.. ABSENT: calf tenderness, clubbing, pedal edema Neurological exam: PRESENT: alert, awake, oriented to person, oriented to place, oriented to time, oriented to situation, CN II-XII grossly intact. ABSENT: motor sensory deficit Skin exam: PRESENT: dry, intact, warm. ABSENT: cyanosis, rash Results Laboratory Results: 04/26/20 05:25 04/26/20 05:25 04/26/20 04/26/20 04/26/20 05:25 05:25 08:30 WBC 15.4 H RBC 4.32 L Hgb 12.4 L Hct 36.1 L MCV 84 MCH 28.7 MCHC 34.4 RDW 13.0 Plt Count 377 D Sodium 133.8 L Potassium 4.2 Chloride 103 Carbon Dioxide 25 Anion Gap 6 BUN 17 Creatinine 1.33 H Est GFR ( Amer) > 60 Glucose 110 Calcium 8.6 Total Bilirubin 0.5 AST 22 Alkaline Phosphatase 113 Total Protein 6.2 L Albumin 2.9 L Urine Color STRAW Urine Appearance CLEAR Urine pH 6.0 Ur Specific [place] 1.008 Urine Protein NEGATIVE Urine Glucose (UA) NEGATIVE Urine Ketones NEGATIVE Urine Blood SMALL H 04/21/20 13:30 Blood Blood Culture (PCR) - Final Staphylococcus Aureus 04/21/20 13:30 Blood Blood Culture - Final Staphylococcus Aureus 04/21/20 15:15 Blood Blood Culture (PCR) - Final Staphylococcus Aureus 04/21/20 15:15 Blood Blood Culture - Final Staphylococcus Aureus 04/21/20 04/21/20 04/21/20 15:15 15:15 19:00 Creatine Kinase 59 Troponin I 0.141 0.185 04/22/20 04/22/20 01:18 07:06 Creatine Kinase Troponin I 0.149 0.104 Impressions: Ankle X-Ray 04/21/20 11:50 IMPRESSION: 3 mm nondisplaced avulsion fracture from the posterolateral corner of the lateral malleolus, seen only on the oblique projection. Chest X-Ray 04/21/20 11:50 IMPRESSION: NO ACUTE FINDINGS. Lower Extremity MRI 04/24/20 00:00 IMPRESSION: Marrow edema along the distal fibula worrisome for early changes of osteomyelitis Overlying soft tissue cellulitis. Trace fluid in the peroneal tendon sheath. Assessment and Plan - Diagnosis (1) Endocarditis due to methicillin susceptible Staphylococcus aureus (MSSA) Is this a current diagnosis for this admission?: Yes Plan: MSSA endocarditis with moderate aortic valve vegetation. 04/24/2020. 2D echo moderate sized aortic valve vegetation. Mild aortic st enosis. Mild aortic regurgitation. LVEF 65%. History of IV drug abuse 6 years ago. Was incarcerated in [facility]it[facility]. Recently released from penitentiary. Denies any IV drug abuse. Urine toxicology negative on admission. Presented with right ankle swelling, erythema and tenderness which was assumed to be cellulitis at the beginning. 04/21/2020. Right ankle x-ray. 3 mm nondisplaced able retraction for the posterior lateral corner of the lateral malleolus. 03/25/2020. MRI right lower extremity. Marrow edema along the distal fibula worrisome for early changes of osteomyelitis. Overlying soft tissue cellulitis. Trace fluid in the peroneal tendon sheath. Physical examination positive for pansystolic ejection murmur. Extensive Osler's nodes on bilateral lower extremity and left distal upper ex tremity. 04/21/2020. 4 out of 4 blood culture positive for MSSA. 04/23/2020. Repeat blood culture negative x48 hours. Day 6 IV antibiotics. Day 6 IV vancomycin. Day 4 IV Zosyn. Received 2 days of IV nafcillin. I have consulted cardiothoracic surgery at [facility] and Dr Reyna cardiothoracic surgeon has reviewed his echo and he recommends surgery, to see if patient needs to be transferred to tertiary care center for possible intervention. I have also consulted infectious disease specialist for duration of antibiotics. (2) Oligoarthritis Is this a current diagnosis for this admission?: Yes (3) Cellulitis Qualifiers: Site of cellulitis: extremity Site of cellulitis of extremity: lower extremity Laterality: right Qualified Code(s): L03.115 - Cellulitis of right lower limb Is this a current diagnosis for this admission?: Yes (4) MSSA bacteremia Is this a current diagnosis for this admission?: Yes (5) Avulsion fracture of ankle Qualifiers: Encounter type: initial encounter Fracture type: closed Laterality: right Qualified Code(s): S82.891A - Other fracture of right lower leg, initial encounter for closed fracture Is this a current diagnosis for this admission?: Yes (6) Elevated troponin Is this a current diagnosis for this admission?: Yes (7) Headache Qualifiers: Headache type: unspecified Headache chronicity pattern: acute headache Intractability: not intractable Qualified Code(s): R51 - Headache Is this a current diagnosis for this admission?: Yes (8) Hypertension Qualifiers: Hypertension type: essential hypertension Qualified Code(s): I10 - Essential (primary) hypertension Is this a current diagnosis for this admission?: Yes (9) Sepsis Qualifiers: Sepsis type: sepsis due to unspecified organism Sepsis acute organ dys function status: without acute organ dysfunction Qualified Code(s): A41.9 - Sepsis, unspecified organism Is this a current diagnosis for this admission?: Yes (10) Suspected COVID-19 virus infection Is this a current diagnosis for this admission?: Yes (11) Tobacco dependence Is this a current diagnosis for this admission?: Yes (12) Hepatitis C Qualifiers: Viral hepatitis chronicity: unspecified Is this a current diagnosis for this admission?: Yes
[2020-04-26] MEDS ORDERED: NORMAL SALINE 1000 ML 1,000 ML IV PRN (14:27)
[2020-04-26] MEDS: MORPHINE SULFATE 10 MG/ML INJ IV PRN ×3 (14:50→23:09)
--- NOTE | 2020-04-26 17:26 | Progress Note ---
Provider Note Provider Note: [facility] ID Telephone Advice Consultation Chart reviewed. Patient is a 39-year-old who was in [facility] for the past 6 years and unknown history of drug use, HCV treated with Timo, left leg orthopedic hardware from previous injury who was admitted after sustaining a fall 5 days prior to admission. He presented right ankle swelling, redness, pain and rom limitation. He later on developed nausea, diarrhea, sore throat, sob. He had a T max of 100.1 in the ED and there was suspicion of COVID-19. He was started on vancomycin and ancef. Blood cultures were done. He was evaluated by orthopedics on 04/20. AT that time there was no fluctuance and there were significant changes consistent with cellulitis. An MRI was later on done on 04/24 as cellulitis was not improving. This showed changes consistent with marrow edema in distal fibula concerning for osteomyelitis. His antibiotic therapy was changed to vancomycin adn zosyn. His blood cultures on 04/21 came back positive both sets for MSSA. Repeat cultures on 04/23 remain negative x 3 days. He had a TTE that showed a AoV moderate size vegetation. In terms of orthopedics, no abscess identified in the ankle or the wrist. Per hospitalist's notes he has Osler nodes distally. ID consulted for recommendations. PMH: HCV s/p Harvoni Hypertension PSH: Right leg IM nail Allergies: lisinopril [Lisinopril] Allergy (Verified 04/21/20 12:08) ANGIOEDEMA muscle relaxers Allergy (Uncoded 05/01/14 10:26) Medications: Losartan/Hydrochlorothiazide [Losartan-Hctz 50-12.5 mg Tab] 1 each PO DAILY 04/22/20 Vital Signs: Temp Pulse Resp BP Pulse Ox 98.1 F 96 18 114/66 99 04/26/20 08:30 04/26/20 08:30 04/26/20 08:30 04/26/20 08:30 04/26/20 08:30 Intake & Output 04/25/20 04/26/20 04/27/20 06:59 06:59 06:59 Intake Total 3450 3259 350 Output Total 3450 4225 Balance 0 -966 350 Weight 78.7 kg 78.7 kg Weight/Height Weight 78.7 kg Height 5 ft 10 in Laboratories: 04/26/20 05:25 04/26/20 05:25 MCV 84 fl (80-97) 04/26/20 05:25 MCH 28.7 pg (27.0-33.4) 04/26/20 05:25 MCHC 34.4 g/dL (32.0-36.0) 04/26/20 05:25 RDW 13.0 % (11.5-14.0) 04/26/20 05:25 Seg Neutrophils % 75.6 % (42-78) 04/24/20 05:56 Chloride 103 mmol/L (98-107) 04/26/20 05:25 Carbon Dioxide 25 mmol/L (22-30) 04/26/20 05:25 Anion Gap 6 (5-19) 04/26/20 05:25 Est GFR ( Amer) > 60 (>60) 04/26/20 05:25 Glucose 110 mg/dL (75-110) 04/26/20 05:25 Lactic Acid 0.7 mmol/L (0.7-2.1) 04/21/20 19:00 Calcium 8.6 mg/dL (8.4-10.2) 04/26/20 05:25 Total Bilirubin 0.5 mg/dL (0.2-1.3) 04/26/20 05:25 AST 22 U/L (17-59) 04/26/20 05:25 Alkaline Phosphatase 113 U/L (38-126) 04/26/20 05:25 C-Reactive Protein 165.5 mg/L (<10.0) H 04/24/20 13:42 Total Protein 6.2 g/dL (6.3-8.2) L 04/26/20 05:25 Albumin 2.9 g/dL (3.5-5.0) L 04/26/20 05:25 Triglycerides 149 mg/dL (<150) 04/22/20 07:06 Cholesterol 116.22 mg/dL (0-200) 04/22/20 07:06 LDL Cholesterol Direct 59 mg/dL (<100) 04/22/20 07:06 VLDL Cholesterol 30.0 mg/dL (10-31) 04/22/20 07:06 HDL Cholesterol 24 mg/dL (>40) L 04/22/20 07:06 Vitamin B12 396.0 pg/mL (239-931) 04/24/20 13:42 Folate 8.25 ng/mL (>2.76) 04/24/20 13:42 Urine Color STRAW 04/26/20 08:30 Urine Appearance CLEAR 04/26/20 08:30 Urine pH 6.0 (5.0-9.0) 04/26/20 08:30 Ur Specific [place] 1.008 04/26/20 08:30 Urine Protein NEGATIVE mg/dL (NEGATIVE) 04/26/20 08:30 Urine Glucose (UA) NEGATIVE mg/dL (NEGATIVE) 04/26/20 08:30 Urine Ketones NEGATIVE mg/dL (NEGATIVE) 04/26/20 08:30 Urine Blood SMALL (NEGATIVE) H 04/26/20 08:30 Urine Nitrite NEGATIVE (NEGATIVE) 04/21/20 12:20 Ur Leukocyte Esterase NEGATIVE (NEGATIVE) 04/21/20 12:20 Urine WBC (Auto) 10 /HPF 04/21/20 12:20 Urine RBC (Auto) 9 /HPF 04/21/20 12:20 04/21/20 04/21/20 04/21/20 15:15 15:15 19:00 Creatine Kinase 59 Troponin I 0.141 0.185 04/22/20 04/22/20 01:18 07:06 Creatine Kinase Troponin I 0.149 0.104 Microbiology: Blood cultures 04/21 MSSA x 2 sets 04/23 NGTD Radiology: Ankle X-Ray 04/21/20 11:50 IMPRESSION: 3 mm nondisplaced avulsion fracture from the posterolateral corner of the lateral malleolus, seen only on the oblique projection. Chest X-Ray 04/21/20 11:50 IMPRESSION: NO ACUTE FINDINGS. Lower Extremity MRI 04/24/20 00:00 IMPRESSION: Marrow edema along the distal fibula worrisome for early changes of osteomyelitis Overlying soft tissue cellulitis. Trace fluid in the peroneal tendon sheath. TTE: Moderate size vegetation in aortic valve. 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 This is a very complicated case as it is unclear what the initial source of the infection was. If he was bacteremic through the skin and caused endocarditis and hematogenous spread to the right ankle which is complex due to the presence of orthopedic hardware. Or it may have started with the ankle and disseminated to the blood and seeded the aortic valve. Either way he will need 6 weeks of ancef 2g every 8 hr in combination of rifampin 600 mg daily due to ortho hardware. Will need to make sure that there isn't anything in the ankle that would require source control and also rule out any other potential site of metastatic infection (VOM, discitis, septic arthritis) especially as WBC is increasing and there was fluid around the peroneal tendon sheath. CT surgery to evaluate the heart valve and see if he is a candidate for valve replacement or medical therapy alone. He has cleared the bacteremia. EOT will depend on source control (if needed) and/or heart valve replacement (if needed). If neither is needed, 6 weeks of therapy from negative cultures is recommended. Kirti Arzate MD [facility] ID [phone]
--- NOTE | 2020-04-26 20:50 | PDOC TRANSFER SUMMARY ---
General Admission Date/PCP: 04/21/20 18:25 Resuscitation Status: Full Code - Transfer Diagnosis (1) Endocarditis due to methicillin susceptible Staphylococcus aureus (MSSA) Is this a current diagnosis for this admission?: Yes (2) MSSA bacteremia Is this a current diagnosis for this admission?: Yes (3) Sepsis Is this a current diagnosis for this admission?: Yes (4) Avulsion fracture of ankle Is this a current diagnosis for this admission?: Yes (5) Cellulitis Is this a current diagnosis for this admission?: Yes (6) Hepatitis C Is this a current diagnosis for this admission?: Yes (7) Headache Is this a current diagnosis for this admission?: Yes (8) Hypertension Is this a current diagnosis for this admission?: Yes (9) Tobacco dependence Is this a current diagnosis for this admission?: Yes - Transfer Medications Home Medications: Losartan/Hydrochlorothiazide [Losartan-Hctz 50-12.5 mg Tab] 1 each PO DAILY 04/22/20 Transfer Medications: Current Medications Acetaminophen (Tylenol 325 Mg Tablet) 650 mg PO Q4HP PRN PRN Reason: FOR PAIN OR TEMP Stop: 05/21/20 18:16 Al Hydrox/Mg Hydrox/Simethicone (Maalox Plus Susp 30 Udcup) 30 ml PO Q6HP PRN PRN Reason: HEARTBURN Stop: 05/21/20 18:26 Amlodipine Besylate (Norvasc 5 Mg Tablet) 5 mg PO QHS [facility] Stop: 05/21/20 21:59 Last Admin: 04/25/20 21:35 Dose: 5 mg Documented by: Ascorbic Acid (Vitamin C 500 Mg Tablet) 500 mg PO BID [facility] Stop: 05/22/20 09:59 Last Admin: 04/26/20 17:11 Dose: 500 mg Documented by: Aspirin (Aspirin 81 Mg Chewable Tablet) 81 mg PO DAILY [facility] Stop: 05/22/20 09:59 Last Admin: 04/26/20 09:36 Dose: 81 mg Documented by: Cholecalciferol (Vitamin D3 400 Unit Tablet) 400 unit PO DAILY [facility] Stop: 05/22/20 09:59 Last Admin: 04/26/20 09:37 Dose: 400 unit Documented by: Docusate Sodium (Colace 100 Mg Capsule) 100 mg PO DAILY [facility] Stop: 05/22/20 09:59 Last Admin: 04/26/20 09:37 Dose: 100 mg Documented by: Famotidine (Pepcid 20 Mg Tablet) 20 mg PO Q12 [facility] Stop: 05/21/20 21:59 Last Admin: 04/26/20 09:36 Dose: 20 mg Documented by: Heparin Sodium (Porcine) (Heparin Inj 5,000 Units/Ml 1 Ml Vial) 5,000 unit SUBCUT Q8 [facility] Stop: 05/21/20 21:59 Last Admin: 04/26/20 13:14 Dose: 5,000 unit Documented by: Hydralazine HCl (Apresoline Inj/Pf 20 Mg/1 Ml Sdv) 10 mg IV Q6HP PRN PRN Reason: SBP>160, DBP>90 Stop: 05/21/20 18:28 Vancomycin HCl 1,250 mg/ (Dextrose) 250 mls @ 166.667 mls/hr IV Q12A [facility] Stop: 04/29/20 17:59 Last Infusion: 04/26/20 08:00 Dose: Infused Documented by: Piperacillin Sod/Tazobactam (Sod 4.5 gm/ Sodium Chloride) 100 mls @ 200 mls/hr IV Q6 [facility] Stop: 04/30/20 11:59 Last Infusion: 04/26/20 18:13 Dose: Infused Documented by: Sodium Chloride (Nacl 0.9% 1000 Ml Iv Soln) 1,000 mls @ 150 mls/hr IV CONTINUOUS PRN PRN Reason: THIS MED IS NOT "PRN" Stop: 05/26/20 14:26 Last Admin: 04/26/20 14:42 Dose: 150 mls/hr Documented by: Magnesium Hydroxide (Milk Of Magnesia 30 Ml Udcup) 30 ml PO HSP PRN PRN Reason: FOR CONSTIPATION Stop: 05/21/20 18:26 Meclizine HCl (Antivert 12.5 Mg Tablet) 12.5 mg PO Q8HP PRN PRN Reason: DIZZINESS Stop: 05/23/20 08:26 Last Admin: 04/25/20 17:20 Dose: 12.5 mg Documented by: Melatonin (Melatonin 3 Mg Tablet) 6 mg PO QHS [facility] Stop: 05/21/20 21:59 Last Admin: 04/25/20 21:35 Dose: 6 mg Documented by: Morphine Sulfate (Morphine 10 Mg/Ml Inj) 2 mg IV Q4HP PRN PRN Reason: FOR PAIN SCALE 3-5 Stop: 05/03/20 10:33 Last Admin: 04/26/20 19:43 Dose: 2 mg Documented by: Nicotine (Nicoderm 14 Mg/24 Hr Transdermal Patch) 1 each TD DAILY [facility] Stop: 05/22/20 09:59 Last Admin: 04/26/20 09:37 Dose: 1 each Documented by: Ondansetron HCl (Zofran Inj/Pf 4 Mg/2 Ml Sdv) 4 mg IV Q6HP PRN PRN Reason: FOR NAUSEA/VOMITING Stop: 05/21/20 18:26 Pilocarpine HCl (Pilocar 4% Oph Soln 15 Ml) 3 drop PO TID [facility] Stop: 05/24/20 13:59 Last Admin: 04/26/20 17:11 Dose: 3 drop Documented by: Potassium Chloride (Potassium Chloride 20 Meq Packet) 40 meq PO DAILY [facility] Stop: 05/23/20 09:59 Last Admin: 04/26/20 09:36 Dose: 40 meq Documented by: Promethazine HCl (Phenergan Inj 25 Mg/1 Ml Vial) 6.25 mg IV Q4HP PRN PRN Reason: FOR UNRELIEVED NAUSEA/VOMITING Stop: 05/21/20 18:26 Zinc Sulfate (Zinc-220 Capsule) 220 mg PO DAILY [facility] Stop: 05/22/20 09:59 Last Admin: 04/26/20 09:37 Dose: 220 mg Documented by: - Allergies Allergies/Adverse Reactions: lisinopril [Lisinopril] Allergy (Verified 04/21/20 12:08) ANGIOEDEMA muscle relaxers Allergy (Uncoded 05/01/14 10:26) Hospital Course Hospital Course: NANCIE SCHROEDER is a 39 year old male with a past medical history significant for hypertension and tobacco dependence with continuous use who presented to the emergency department with multiple complaints. The patient reports that he slipped on wet stairs 5 days ago. He developed ankle swelling, erythema, and pain approximately 2 days later associated with subjective fever, generalized body aches/malaise, mild nausea, and diarrhea. He notes that a day or 2 after that, he developed global headache, sore throat, shortness of breath, and chest discomfort. He denies known coronavirus contacts; he is continuing to work with [employer]. 04/23/2020. No acute events overnight. Patient complaining of vertigo, nausea, and persistent right ankle pain. Denies any fever, shortness of breath, chills, vomiting, diarrhea, constipation or any urinary symptoms. 04/24/2020. No acute events overnight. Vertigo nausea improved. Still complaining of right ankle persistent pain. Patient has developed distal left upper extremity swelling and erythema, denies any fever, chills, nausea, vomiting, diarrhea, constipation or any urinary symptoms. Patient is recently out of residential after being there for 6 years, denies any history of 60 days, is not sexually active, denies any tick bite or rashes, denies any history of arthritis, does admit being in the carrion since being this released from residential. Denies any morning stiffness. 04/25/2020. No acute events overnight. Patient still complaining of persistent right ankle pain, has developed some redness and swelling on the lateral aspect of the left foot with some Osler's nodes, left distal upper extremity swelling and tenderness improving, denies any fever, chills, nausea, vomiting, diarrhea, constipation or any urinary symptoms. Bilateral angular colitis improving. 04/26/2020. Patient still complaining of persistent right ankle and left lateral foot pain, wants his Percocet to be changed is not sufficient, distal left upper extremity swelling has improved, still complaining of soreness, denies any fever, chills, nausea, vomiting, diarrhea, constipation or any urinary symptoms. Chart reviewed. Patient is a 39-year-old who was in [facility] for the past 6 years and unknown history of drug use, HCV treated with Harvoni, left leg orthopedic hardware from previous injury who was admitted after sustaining a fall 5 days prior to admission. He presented right ankle swelling, redness, pain and rom limitation. He later on developed nausea, diarrhea, sore throat, sob. He had a T max of 100.1 in the ED and there was suspicion of COVID-19. He was started on vancomycin and ancef. Blood cultures were done. He was evaluated by orthopedics on 04/20. AT that time there was no fluctuance and there were significant changes consistent with cellulitis. An MRI was later on done on 04/24 as cellulitis was not improving. This showed changes consistent with marrow edema in distal fibula concerning for osteomyelitis. His antibiotic therapy was changed to vancomycin adn zosyn. His blood cultures on 04/21 came back positive both sets for MSSA. Repeat cultures on 04/23 remain negative x 3 days. He had a TTE that showed a AoV moderate size vegetation. In terms of orthop edics, no abscess identified in the ankle or the wrist. Per hospitalist's notes he has Osler nodes distally. ID consulted for recommendations. TTE: Moderate size vegetation in aortic valve. 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 This is a very complicated case as it is unclear what the initial source of the infection was. If he was bacteremic through the skin and caused endocarditis and hematogenous spread to the right ankle which is complex due to the presence of orthopedic hardware. Or it may have started with the ankle and disseminated to the blood and seeded the aortic valve. Either way he will need 6 weeks of ancef 2g every 8 hr in combination of rifampin 600 mg daily due to ortho hardware. Will need to make sure that there isn't anything in the ankle that would require source control and also rule out any other potential site of metastatic infection (VOM, discitis, septic arthritis) especially as WBC is increasing and there was fluid around the peroneal tendon sheath. CT surgery to evaluate the heart valve and see if he is a candidate for valve replacement or medical therapy alone. He has cleared the bacteremia. EOT will depend on source control (if needed) and/or heart valve replacement (if needed). If neither is needed, 6 weeks of therapy from negative cultures is recommended. 04/26/2020: Transfer to [facility] in [facility] arranged by daytime hospitalist service. Dr. Bateman has agreed to accept the patient in transfer to a higher level of cardiology care for the patient's treatment of his aortic valve endocarditis with vegetation. Physical Exam Vital Signs: Temp Pulse Resp BP Pulse Ox 98.1 F 96 18 114/66 99 04/26/20 08:30 04/26/20 08:30 04/26/20 08:30 04/26/20 08:30 04/26/20 08:30 Intake & Output 04/24/20 04/25/20 04/26/20 23:59 23:59 23:59 Intake Total 7951 4599 910 Output Total 0216 4467 9026 Balance 4086 1374 -1465 Weight 78.7 kg 78.7 kg 78.7 kg General appearance: PRESENT: no acute distress, cooperative Head exam: PRESENT: atraumatic, normocephalic Respiratory exam: PRESENT: symmetrical, unlabored Neurological exam: PRESENT: alert, oriented to person, oriented to place, oriented to time, oriented to situation Psychiatric exam: PRESENT: appropriate affect, normal mood Results Laboratory Results: 04/26/20 05:25 04/26/20 05:25 04/26/20 04/26/20 04/26/20 05:25 05:25 08:30 WBC 15.4 H RBC 4.32 L Hgb 12.4 L Hct 36.1 L MCV 84 MCH 28.7 MCHC 34.4 RDW 13.0 Plt Count 377 D Sodium 133.8 L Potassium 4.2 Chloride 103 Carbon Dioxide 25 Anion Gap 6 BUN 17 Creatinine 1.33 H Est GFR ( Amer) > 60 Glucose 110 Calcium 8.6 Total Bilirubin 0.5 AST 22 Alkaline Phosphatase 113 Total Protein 6.2 L Albumin 2.9 L Urine Color STRAW Urine Appearance CLEAR Urine pH 6.0 Ur Specific [place] 1.008 Urine Protein NEGATIVE Urine Glucose (UA) NEGATIVE Urine Ketones NEGATIVE Urine Blood SMALL H 04/21/20 04/21/20 04/21/20 15:15 15:15 19:00 Creatine Kinase 59 Troponin I 0.141 0.185 04/22/20 04/22/20 01:18 07:06 Creatine Kinase Troponin I 0.149 0.104 Impressions: Ankle X-Ray 04/21/20 11:50 IMPRESSION: 3 mm nondisplaced avulsion fracture from the posterolateral corner of the lateral malleolus, seen only on the oblique projection. Chest X-Ray 04/21/20 11:50 IMPRESSION: NO ACUTE FINDINGS. Lower Extremity MRI 04/24/20 00:00 IMPRESSION: Marrow edema along the distal fibula worrisome for early changes of osteomyelitis Overlying soft tissue cellulitis. Trace fluid in the peroneal tendon sheath. Plan Discharge Plan: Transfer [facility] as noted above. Time Spent: Less than 30 Minutes
[2020-04-26] MEDS: AMLODIPINE BESYLATE 5 MG TABLET PO SCH (21:31)
[2020-04-26] MEDS: MELATONIN 3 MG TABLET PO SCH (21:32)
[2020-04-26 23:35] VITALS: BP 138/48
[2020-04-27 12:55] LABS: VITAMIN B6 3.9 ug/L (5.3-46.7)
[2020-04-28 09:29] LABS: VITAMIN A 21.8 ug/dL (20.1-62.0); VITAMIN B1 (THIAMINE) 107.5 nmol/L (66.5-200.0)
[2020-04-28 11:02] LABS: VITAMIN B5 55.5 ng/mL (12.9-253.1); VITAMIN B7 <0.05 ng/mL (0.05-0.83)
== END 2020-04-26 23:15 | disposition short-term general hospital (02) | DRG 872 ==
LOC: ER 10:41 → EH 18:25 → 3N 21:00 → 4W 04-24 08:16
PROVIDERS: ADMIT Internal Medicine; ATTEND Internal Medicine
PROC: 3E0234Z Introduction of Serum, Toxoid and Vaccine into Muscle, Percutaneous Approach (ICD-10-PCS; principal; 2020-04-21)
DX: A41.01 Sepsis due to Methicillin susceptible Staphylococcus aureus (principal); L03.115 Cellulitis of right lower limb; L03.114 Cellulitis of left upper limb; R65.20 Severe sepsis without septic shock; S82.64XA Nondisplaced fracture of lateral malleolus of right fibula, initial encounter for closed fracture; I35.8 Other nonrheumatic aortic valve disorders; B19.20 Unspecified viral hepatitis C without hepatic coma; I10 Essential (primary) hypertension; R51 Headache; F32.9 Major depressive disorder, single episode, unspecified; F17.210 Nicotine dependence, cigarettes, uncomplicated; W10.8XXA Fall (on) (from) other stairs and steps, initial encounter; Y93.89 Activity, other specified; Y92.018 Other place in single-family (private) house as the place of occurrence of the external cause; Z60.2 Problems related to living alone; Z03.818 Encounter for observation for suspected exposure to other biological agents ruled out; Z23 Encounter for immunization
CPT/HCPCS: 36415; 71045; 80048; 80053; 80061; 80074; 80202; 81001; 81291; 82306; 82550; 82607; 82746; 83036; 83605; 84207; 84425; 84484; 84590; 84591; 85025; 85027; 85379; 85610; 85652; 86038; 86140; 86431; 86617; 86618; 86701; 87040; 87070; 87077; 87150; 87186; 87491; 87591; 87635; 87880; 90471; 90715; 93005; 93010; 93306; 96361; 96365; 96368; 96375; 99285; C9803; J0690; J0696; J0780; J1200; J1644; J1885; J2270; J2543; J2550; J3370; J3490; J7030; J7050; J7060

== ENCOUNTER 2020-05-21 18:30 | Inpatient (IN) | payer SELFPAY ==
[2020-05-21] MEDS ORDERED: PROMETHAZINE HCL INJ 25 MG/1 ML VIAL IV PRN (19:30)
[2020-05-21] MEDS ORDERED: ACETAMINOPHEN 325 MG TABLET PO PRN (19:30)
[2020-05-21] MEDS ORDERED: TEMAZEPAM 7.5 MG CAPSULE PO PRN (19:30)
[2020-05-21] MEDS ORDERED: IPRATROPIUM/ALBUTEROL 0.5-2.5 MG/3 ML AMPUL NEB PRN (19:30)
[2020-05-21] MEDS ORDERED: ONDANSETRON HCL INJ/PF 4 MG/2 ML SDV IV PRN (19:30)
--- NOTE | 2020-05-21 19:40 | PDOC H&P ---
History of Present Illness Admission Date/PCP: 05/21/20 18:30 History of Present Illness: NANCIE SCHROEDER is a 39 year old male past medical history of IV drug abuse, hepatitis C, polycystic kidney disease, CKD, MSSA bacteremia who was recently diagnosed with aortic valve bacterial endocarditis with vegetation at [facility], was transferred to [facility] where he underwent aortic valve bioprosthetic replacement, unfortunately while at [facility], he had new onset A. fib, consumptive coagulopathy and vasogenic shock but did have successful bioprosthetic aortic valve replacement. Patient still needs IV antibiotics until 06/04/2020 therefore he was transferred back to [facility] to finish his antibiotic course. On my encounter patient comfortably resting in bed in no apparent distress, seems to be in very good spirit, complaining of sore chest residual from his surgery, bilateral lower extremity pain and erythema has resolved, patient is now ambulatory and having normal bowel and bladder movements, patient is denying any shortness of breath, anginal chest pain, orthopnea, paroxysmal nocturnal dyspnea, weakness, fever, chills, nausea, vomiting, diarrhea, constipation or any urinary symptoms. Refusing DVT prophylaxis and IV fluids. Past Medical History Cardiac Medical History: Reports: Hypertension Denies: Atrial Fibrillation, Coronary Artery Disease, Hyperlipidema Pulmonary Medical History: Denies: Chronic Obstructive Pulmonary Disease (COPD), Tuberculosis GI Medical History: Reports: Hepatitis - s/p Harvoni treatment Psychiatric Medical History: Reports: Depression Past Surgical History Past Surgical History: Reports: Orthopedic Surgery - [place] IN RIGHT LEG Social History Smoking Status: Former Smoker Frequency of Alcohol Use: None Hx Recreational Drug Use: Yes - last use 6years ago Drugs: Marijuana, Methadone Hx Prescription Drug Abuse: No Family History Family History: Reviewed & Not Pertinent Parental Family History Reviewed: Yes Children Family History Reviewed: Yes Sibling(s) Family History Reviewed.: Yes Medication/Allergy Home Medications: Acetaminophen [Tylenol] 650 mg PO Q4HP PRN 05/22/20 Amiodarone HCl [Cordarone 200 mg Tablet] 200 mg PO DAILY 05/22/20 Aspirin [Ecotrin] 325 mg PO DAILY 05/22/20 Cefazolin Sodium/Dextrose,Iso [Cefazolin-Dextrose 2 gm/100 ml] 2 gm IV Q8 05/22/20 Diclofenac Sodium 4 gm TP QID 05/22/20 Doxylamine Succinate [Nighttime Sleep-Aid] 25 mg PO QHS 05/22/20 Fluticasone Propionate [Flonase Nasal [place] 50 Mcg/[place]ac[place] 16 gm] 2 spray NASL Q12 05/22/20 Gabapentin [Neurontin 300 mg Capsule] 300 mg PO Q8 05/22/20 Ibuprofen [Motrin 600 mg Tablet] 600 mg PO Q8HP PRN 05/22/20 Loratadine [Claritin 10 mg Tablet] 10 mg PO DAILY 05/22/20 Methocarbamol [Robaxin 500 mg Tablet] 250 mg PO TID 05/22/20 Metoprolol Tartrate [Lopressor 25 mg Tablet] 12.5 mg PO Q12 05/22/20 Oxycodone HCl [Oxy-Ir 5 mg Tablet] 5 mg PO Q4HP PRN 05/22/20 Ranitidine HCl 300 mg PO QHS 05/22/20 Allergies/Adverse Reactions: lisinopril [Lisinopril] Allergy (Verified 04/21/20 12:08) ANGIOEDEMA muscle relaxers Allergy (Uncoded 05/01/14 10:26) Review of Systems Review of Systems: as per hpi Physical Exam Vital Signs: Temp Pulse Resp BP Pulse Ox 98.5 F 79 16 108/74 100 05/21/20 18:32 05/21/20 18:32 05/21/20 18:32 05/21/20 18:32 05/21/20 18:32 Intake & Output 05/20/20 05/21/20 05/22/20 06:59 06:59 06:59 Weight 72.7 kg General appearance: PRESENT: no acute distress, well-developed, well-nourished Head exam: PRESENT: atraumatic, normocephalic Respiratory exam: PRESENT: clear to auscultation nils. ABSENT: rales, rhonchi, wheezes Cardiovascular exam: PRESENT: RRR, systolic murmur, other - Linear surgical scar over the sternum, clean, no sign of discharge.. ABSENT: diastolic murmur, rubs GI/Abdominal exam: PRESENT: normal bowel sounds, soft. ABSENT: distended, guarding, mass, organolmegaly, rebound, tenderness Neurological exam: PRESENT: alert, awake, oriented to person, oriented to place, oriented to time, oriented to situation, CN II-XII grossly intact. ABSENT: motor sensory deficit Skin exam: PRESENT: dry, intact, warm. ABSENT: cyanosis, rash Assessment and Plan - Diagnosis (1) Endocarditis due to methicillin susceptible Staphylococcus aureus (MSSA) Is this a current diagnosis for this admission?: Yes Plan: Status post bioprosthetic aortic valve replacement at [facility]. On cefazolin 2 g IV every 8. Last day of antibiotic 06/04/2020. Patient has outpatient follow-up with cardiothoracic surgeon for evaluation of his aortic valve. CBC WNL. Afebrile. Vitals stable. Continue IV antibiotics. Monitor vitals. (2) New onset a-fib Is this a current diagnosis for this admission?: Yes Plan: New onset paroxysmal A. fib. Was diagnosed at [facility] on April 2020. Currently sinus rhythm. Rate controlled. On amiodarone. Does not require chronic anticoagulation. Continue amiodarone. Continue telemetry. Outpatient PCP and cardiology follow- up. (3) CKD (chronic kidney disease) Qualifiers: Chronic kidney disease stage: stage 2 (mild) Qualified Code(s): N18.2 - Chronic kidney disease, stage 2 (mild) Is this a current diagnosis for this admission?: Yes Plan: History of polycystic kidney disease. Mildly elevated creatinine. Electrolytes WNL. Euvolemic. Monitor volume status and electrolytes. Avoid nephrotoxic meds. (4) Hepatitis C Qualifiers: Viral hepatitis chronicity: unspecified Is this a current diagnosis for this admission?: Yes Plan: Outpatient PCP follow-up. Liver function WNL. PT/INR WNL. (5) Tobacco dependence Is this a current diagnosis for this admission?: Yes Plan: NicoDerm patch and Chantix. Counseled on quitting. Patient is very motivated to try to quit. (6) Polycystic kidney disease Is this a current diagnosis for this admission?: Yes Plan: History of polycystic kidney disease. Has been seen by aquatics coordinator as outpatient. Monitor renal function, avoid nephrotoxic meds, monitor volume status. Allergic to ALLEN. Outpatient PCP and nephrology follow-up. - Time Time Spent with patient: 35 or more minutes Medications reviewed and adjusted accordingly: Yes Anticipated Discharge Disposition: Home, Self Care Anticipated Discharge Timeframe: when bed available
[2020-05-21] MEDS: OXYCODONE-ACETAMINOPHEN 5-325 MG TABLET PO PRN (20:13)
[2020-05-21] MEDS: FAMOTIDINE 20 MG TABLET PO SCH (22:20)
[2020-05-21] MEDS: CEFAZOLIN 2 GM/D5W RTU 2 GM/50 ML RTUPB IV SCH (22:21)
[2020-05-22] MEDS: OXYCODONE-ACETAMINOPHEN 5-325 MG TABLET PO PRN ×6 (00:30→22:32)
[2020-05-22] MEDS: CEFAZOLIN 2 GM/D5W RTU 2 GM/50 ML RTUPB IV SCH ×3 (06:05→22:19)
[2020-05-22 06:21] LABS: ABSOLUTE BASOPHILS # (AUTO) 0.1 10^3/uL (0.0-0.2); ABSOLUTE EOSINOPHILS # (AUTO) 0.2 10^3/uL (0.0-0.6); ABSOLUTE LYMPHOCYTES (AUTO) 1.4 10^3/uL (0.5-4.7); ABSOLUTE MONOCYTES (AUTO) 0.8 10^3/uL (0.1-1.4); ABSOLUTE NEUT (AUTO) 5.6 10^3/uL (1.7-8.2); BASOPHILS % (AUTO) 1.1 % (0-2); EOSINOPHILS % (AUTO) 2.5 % (0-6); HEMATOCRIT 25.2 % (37.9-51.0); HEMOGLOBIN 8.4 g/dL (13.5-17.0); LYMPHOCYTES % (AUTO) 17.6 % (13-45); MEAN CORPUSCULAR HEMOGLOBIN 28.2 pg (27.0-33.4); MEAN CORPUSCULAR HGB CONC 33.1 g/dL (32.0-36.0); MEAN CORPUSCULAR VOLUME 85 fl (80-97); MONOCYTES % (AUTO) 9.4 % (3-13); PLATELET COUNT 373 10^3/uL (150-450); RED BLOOD COUNT 2.97 10^6/uL (4.35-5.55); RED CELL DISTRIBUTION WIDTH 14.1 % (11.5-14.0); SEGMENTED NEUTROPHILS % (AUTO) 69.4 % (42-78); TOTAL CELLS COUNTED % (AUTO) 100 %; WHITE BLOOD COUNT 8.1 10^3/uL (4.0-10.5)
[2020-05-22 06:27] LABS: ALBUMIN 3.2 g/dL (3.5-5.0); ALKALINE PHOSPHATASE 97 U/L (38-126); ANION GAP 7 (5-19); ASPARTATE AMINO TRANSFERASE 31 U/L (17-59); BILIRUBIN,TOTAL 0.3 mg/dL (0.2-1.3); BLOOD UREA NITROGEN 20 mg/dL (7-20); CALCIUM 8.8 mg/dL (8.4-10.2); CARBON DIOXIDE 29 mmol/L (22-30); CHLORIDE 102 mmol/L (98-107); GLUCOSE 99 mg/dL (75-110); POTASSIUM 4.4 mmol/L (3.6-5.0); TOTAL PROTEIN 6.5 g/dL (6.3-8.2)
[2020-05-22] MEDS ORDERED: NORMAL SALINE 1000 ML 1,000 ML IV PRN (07:59)
[2020-05-22] MEDS: FAMOTIDINE 20 MG TABLET PO SCH ×2 (09:33→22:31)
[2020-05-22] MEDS: LIDOCAINE 5% (700 MG) TRANSDERMAL ADH..PATCH TP SCH (09:34)
[2020-05-22] MEDS: DOCUSATE SODIUM 100 MG/10 ML UDC PO SCH ×2 (09:36→17:07)
[2020-05-22] MEDS ORDERED: ENOXAPARIN SODIUM INJ 40 MG/0.4 ML DISP.SYRIN SUBCUT SCH (10:00)
[2020-05-22] MEDS ORDERED: NICOTINE 21 MG/24 HR PATCH.TD24 ONE (10:12)
[2020-05-22] MEDS: NICOTINE 21 MG/24 HR PATCH.TD24 TD SCH (10:19)
[2020-05-22] MEDS: VARENICLINE TARTRATE 1 MG TABLET PO SCH (12:31)
--- NOTE | 2020-05-22 13:29 | PDOC PROGRESS REPORT ---
Subjective Progress Note for:: 05/22/20 Subjective:: NANCIE SCHROEDER is a 39 year old male past medical history of IV drug abuse, hepatitis C, polycystic kidney disease, CKD, MSSA bacteremia who was recently diagnosed with aortic valve bacterial endocarditis with vegetation at [facility], was transferred to [facility] where he underwent aortic valve bioprosthetic replacement, unfortunately while at [facility], he had new onset A. fib, consumptive coagulopathy and vasogenic shock but did have successful bioprosthetic aortic valve replacement. Patient still needs IV antibiotics until 06/04/2020 therefore he was transferred back to [facility] to finish his antibiotic course. On my encounter patient comfortably resting in bed in no apparent distress, seems to be in very good spirit, complaining of sore chest residual from his surgery, bilateral lower extremity pain and erythema has resolved, patient is now ambulatory and having normal bowel and bladder movements, patient is denying any shortness of breath, anginal chest pain, orthopnea, paroxysmal nocturnal dyspnea, weakness, fever, chills, nausea, vomiting, diarrhea, constipation or any urinary symptoms. Refusing DVT prophylaxis and IV fluids. 05/22/2020. No acute events overnight. Comfortably sitting up in apparent distress, denies any fever, chills, nausea, vomiting, diarrhea, constipation or any urinary symptoms. Complaining of sore chest at the surgical site, denies any fever, ambulatory, p.o. tolerant, having normal bowel and bladder movements. Refusing DVT prophylaxis and IV fluids. 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 ABSENT: rales, rhonchi, wheezes Cardiovascular exam: PRESENT: RRR, systolic murmur, other - Surgical wound looks clean, no discharge erythema or tenderness.. ABSENT: diastolic murmur, rubs GI/Abdominal exam: PRESENT: normal bowel sounds, soft. ABSENT: distended, guarding, mass, organolmegaly, rebound, tenderness Neurological exam: PRESENT: alert, awake, oriented to person, oriented to place, oriented to time, oriented to situation, CN II-XII grossly intact. ABSENT: motor sensory deficit Results Laboratory Results: 05/22/20 06:00 05/22/20 06:00 05/22/20 05/22/20 06:00 06:00 WBC 8.1 RBC 2.97 L Hgb 8.4 L Hct 25.2 L MCV 85 MCH 28.2 MCHC 33.1 RDW 14.1 H Plt Count 373 Seg Neutrophils % 69.4 Sodium 137.5 Potassium 4.4 Chloride 102 Carbon Dioxide 29 Anion Gap 7 BUN 20 Creatinine 1.33 H Est GFR ( Amer) > 60 Glucose 99 Calcium 8.8 Total Bilirubin 0.3 AST 31 Alkaline Phosphatase 97 Total Protein 6.5 Albumin 3.2 L Assessment and Plan - Diagnosis (1) Endocarditis due to methicillin susceptible Staphylococcus aureus (MSSA) Is this a current diagnosis for this admission?: Yes Plan: Status post bioprosthetic aortic valve replacement at [facility]. On cefazolin 2 g IV every 8. Last day of antibiotic 06/04/2020. Patient has outpatient follow-up with cardiothoracic surgeon for evaluation of his aortic valve. CBC WNL. Afebrile. Vitals stable. Continue IV antibiotics. Monitor vitals. (2) New onset a-fib Is this a current diagnosis for this admission?: Yes Plan: New onset paroxysmal A. fib. Was diagnosed at [facility] on April 2020. Currently sinus rhythm. Rate controlled. On amiodarone. Does not require chronic anticoagulation. Continue amiodarone. Continue telemetry. Outpatient PCP and cardiology follow-up. (3) CKD (chronic kidney disease) Qualifiers: Chronic kidney disease stage: stage 2 (mild) Qualified Code(s): N18.2 - Chronic kidney disease, stage 2 (mild) Is this a current diagnosis for this admission?: Yes Plan: History of polycystic kidney disease. Mildly elevated creatinine. Electrolytes WNL. Euvolemic. Monitor volume status and electrolytes. Avoid nephrotoxic meds. (4) Hepatitis C Qualifiers: Viral hepatitis chronicity: unspecified Is this a current diagnosis for this admission?: Yes Plan: Outpatient PCP follow-up. Liver function WNL. PT/INR WNL. (5) Tobacco dependence Is this a current diagnosis for this admission?: Yes Plan: NicoDerm patch and Chantix. Counseled on quitting. Patient is very motivated to try to quit. (6) Polycystic kidney disease Is this a current diagnosis for this admission?: Yes Plan: History of polycystic kidney disease. Has been seen by morgue technician as outpatient. Monitor renal function, avoid nephrotoxic meds, monitor volume status. Allergic to ALLEN. Outpatient PCP and nephrology follow-up. - Time Time Spent with patient: 25-34 minutes Smoking Cessation Education: 3 to 10 minutes Medications reviewed and adjusted accordingly: Yes Anticipated Discharge Disposition: Home, Self Care Anticipated Discharge Timeframe: when bed available
[2020-05-22] MEDS: GABAPENTIN 300 MG CAPSULE PO SCH ×2 (14:19→22:22)
[2020-05-22] MEDS: METHOCARBAMOL 500 MG TABLET PO SCH ×2 (14:19→22:24)
--- NOTE | 2020-05-22 18:22 | EKG REPORT ---
SEVERITY:- BORDERLINE ECG - SINUS RHYTHM BORDERLINE T ABNORMALITIES, INFERIOR LEADS BORDERLINE PROLONGED QT INTERVAL : Confirmed by: Torey Gary MD 22-May-2020 18:22:08
[2020-05-22] MEDS ORDERED: (PENDING PHARMACY ID) (Ranitidine Hcl [Ranitidine Hcl] 300 MG) PO SCH (22:00)
[2020-05-22] MEDS ORDERED: DOXYLAMINE SUCCINATE 25 MG PO SCH (22:00)
[2020-05-22] MEDS: METOPROLOL TARTRATE 25 MG TABLET PO SCH (22:21)
[2020-05-22] MEDS: FLUTICASONE NASAL SPRAY 50 MCG/SPRY 120 SPRAY/16 GM NASL SCH (22:21)
[2020-05-22] MEDS: TEMAZEPAM 7.5 MG CAPSULE PO SCH (22:23)
[2020-05-23] MEDS: CEFAZOLIN 2 GM/D5W RTU 2 GM/50 ML RTUPB IV SCH ×3 (06:09→22:29)
[2020-05-23] MEDS: GABAPENTIN 300 MG CAPSULE PO SCH ×3 (06:10→22:28)
[2020-05-23] MEDS: OXYCODONE-ACETAMINOPHEN 5-325 MG TABLET PO PRN ×2 (06:10→10:17)
[2020-05-23] MEDS: METHOCARBAMOL 500 MG TABLET PO SCH (06:11)
[2020-05-23 06:34] LABS: ABSOLUTE RETICS # 0.076 10^6/uL (0.028-0.122); HEMATOCRIT 26.4 % (37.9-51.0); HEMOGLOBIN 8.8 g/dL (13.5-17.0); MEAN CORPUSCULAR HEMOGLOBIN 28.4 pg (27.0-33.4); MEAN CORPUSCULAR HGB CONC 33.4 g/dL (32.0-36.0); MEAN CORPUSCULAR VOLUME 85 fl (80-97); PLATELET COUNT 406 10^3/uL (150-450); RED BLOOD COUNT 3.11 10^6/uL (4.35-5.55); RED CELL DISTRIBUTION WIDTH 13.8 % (11.5-14.0); RETICULOCYTE COUNT (AUTO) 2.45 % (0.66-2.85); WHITE BLOOD COUNT 8.7 10^3/uL (4.0-10.5)
[2020-05-23 06:46] LABS: INTERNATIONAL RATION (INR) 1.09; PROTHROMBIN TIME 14.3 SEC (11.4-15.4)
[2020-05-23 06:52] LABS: ALBUMIN 3.4 g/dL (3.5-5.0); ALKALINE PHOSPHATASE 96 U/L (38-126); ANION GAP 6 (5-19); ASPARTATE AMINO TRANSFERASE 28 U/L (17-59); BILIRUBIN,TOTAL 0.3 mg/dL (0.2-1.3); BLOOD UREA NITROGEN 18 mg/dL (7-20); C-REACTIVE PROTEIN 70.1 mg/L (<10.0); CALCIUM 9.1 mg/dL (8.4-10.2); CARBON DIOXIDE 29 mmol/L (22-30); CHLORIDE 101 mmol/L (98-107); GLUCOSE 102 mg/dL (75-110); IRON(TIBC) 19.6 ug/dL (49-181); PHOSPHORUS 4.1 mg/dL (2.5-4.5); POTASSIUM 4.6 mmol/L (3.6-5.0); TOTAL PROTEIN 6.8 g/dL (6.3-8.2)
[2020-05-23] MEDS: METOPROLOL TARTRATE 25 MG TABLET PO SCH ×2 (09:48→22:28)
[2020-05-23] MEDS: LORATADINE 10 MG TABLET PO SCH (09:50)
[2020-05-23] MEDS: NICOTINE 21 MG/24 HR PATCH.TD24 TD SCH (09:51)
[2020-05-23] MEDS: ASPIRIN 325 MG TABLET, ENT COATED PO SCH (09:52)
[2020-05-23] MEDS: AMIODARONE HCL 200 MG TABLET PO SCH ×2 (09:52→13:28)
[2020-05-23] MEDS: DOCUSATE SODIUM 100 MG/10 ML UDC PO SCH (09:52)
[2020-05-23] MEDS: VARENICLINE TARTRATE 1 MG TABLET PO SCH (09:53)
[2020-05-23] MEDS: LIDOCAINE 5% (700 MG) TRANSDERMAL ADH..PATCH TP SCH (09:53)
[2020-05-23] MEDS: FLUTICASONE NASAL SPRAY 50 MCG/SPRY 120 SPRAY/16 GM NASL SCH ×2 (09:54→22:27)
[2020-05-23] MEDS: FAMOTIDINE 20 MG TABLET PO SCH (10:12)
--- NOTE | 2020-05-23 10:40 | PDOC PROGRESS REPORT ---
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 fib, consumptive coagulopathy and vasogenic shock but did have successful bioprosthetic aortic valve replacement. Patient still needs IV antibiotics until 06/04/2020 therefore he was transferred back to [facility] to finish his antibiotic course. On my encounter patient comfortably resting in bed in no apparent distress, seems to be in very good spirit, complaining of sore chest residual from his surgery, bilateral lower extremity pain and erythema has resolved, patient is now ambulatory and having normal bowel and bladder movements, patient is denying any shortness of breath, anginal chest pain, orthopnea, paroxysmal nocturnal dyspnea, weakness, fever, chills, nausea, vomiting, diarrhea, constipation or any urinary symptoms. Refusing DVT prophylaxis and IV fluids. 05/22/2020. No acute events overnight. Comfortably sitting up in apparent distress, denies any fever, chills, nausea, vomiting, diarrhea, constipation or any urinary symptoms. Complaining of sore chest at the surgical site, denies any fever, ambulatory, p.o. tolerant, having normal bowel and bladder movements. Refusing DVT prophylaxis and IV fluids. 05/23/2020. No acute events overnight. Patient keeps complaining about sore chest pain at the site of his thoracotomy, he is stating that at the other hospital he was receiving Toradol and ibuprofen and it was helping him with his pain, I have mentioned to patient that he has polycystic kidney disease and on top of that he has CKD and it is nadvisable for him to use NSAIDs as it may worsen his renal function, patient voiced understanding and wants his other pain regimen to be increased instead, otherwise denies any fever, chills, nausea, shortness of breath, diarrhea, constipation or any urinary symptoms. He wants his Robaxin and Unisom to be discontinued. Ambulatory. Having normal bowel and bladder movements. 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, LONGTERM IV ANTIBIOTIC USE Physical Exam Vital Signs: Temp Pulse Resp BP Pulse Ox 98.7 F 79 18 124/81 100 05/22/20 23:37 05/22/20 23:37 05/22/20 23:37 05/22/20 23:37 05/22/20 23:37 Intake & Output 05/22/20 05/23/20 05/24/20 06:59 06:59 06:59 Intake Total 460 2495 50 Balance 460 2495 50 Weight 73 kg 74.1 kg General appearance: PRESENT: no acute distress, well-developed, well-nourished Head exam: PRESENT: atraumatic, normocephalic Respiratory exam: PRESENT: clear to auscultation nils. ABSENT: rales, rhonchi, wheezes Cardiovascular exam: PRESENT: RRR, systolic murmur, other - Linear surgical wound over the sternum, clean, no sign of infection.. ABSENT: diastolic murmur, rubs Extremities exam: PRESENT: full ROM. ABSENT: calf tenderness, clubbing, pedal edema Neurological exam: PRESENT: alert, awake, oriented to person, oriented to place, oriented to time, oriented to situation, CN II-XII grossly intact. ABSENT: motor sensory deficit Results Laboratory Results: 05/23/20 06:23 05/23/20 06:23 05/23/20 05/23/20 06:23 06:23 WBC 8.7 RBC 3.11 L Hgb 8.8 L Hct 26.4 L MCV 85 MCH 28.4 MCHC 33.4 RDW 13.8 Plt Count 406 Retic Count (auto) 2.45 Sodium 136.2 L Potassium 4.6 Chloride 101 Carbon Dioxide 29 Anion Gap 6 BUN 18 Creatinine 1.45 H Est GFR ( Amer) > 60 Glucose 102 Calcium 9.1 Phosphorus 4.1 Magnesium 1.7 Iron 19.6 L TIBC 277 % Saturation 7 Ferritin 180.00 Total Bilirubin 0.3 AST 28 Alkaline Phosphatase 96 C-Reactive Protein 70.1 H Total Protein 6.8 Albumin 3.4 L Vitamin B12 252.0 Folate 4.00 Assessment and Plan - Diagnosis (1) Endocarditis due to methicillin susceptible Staphylococcus aureus (MSSA) Is this a current diagnosis for this admission?: Yes Plan: Status post bioprosthetic aortic valve replacement at [facility]. On cefazolin 2 g IV every 8. Last day of antibiotic 06/04/2020. Patient has outpatient follow-up with cardiothoracic surgeon for evaluation of his aortic valve. CBC WNL. Afebrile. Vitals stable. Continue IV antibiotics. Monitor vitals. (2) New onset a-fib Is this a current diagnosis for this admission?: Yes Plan: New onset paroxysmal A. fib. Was diagnosed at [facility] on April 2020. Currently sinus rhythm. Rate controlled. On amiodarone. Does not require chronic anticoagulation. Continue amiodarone. Continue telemetry. Outpatient PCP and cardiology follow- up. (3) CKD (chronic kidney disease) Qualifiers: Chronic kidney disease stage: stage 2 (mild) Qualified Code(s): N18.2 - Chronic kidney disease, stage 2 (mild) Is this a current diagnosis for this admission?: Yes Plan: History of polycystic kidney disease. Mildly elevated creatinine. Electrolytes WNL. Euvolemic. Monitor volume status and electrolytes. Avoid nephrotoxic meds. (4) Hepatitis C Qualifiers: Viral hepatitis chronicity: unspecified Is this a current diagnosis for this admission?: Yes Plan: Outpatient PCP follow-up. Liver function WNL. PT/INR WNL. (5) Tobacco dependence Is this a current diagnosis for this admission?: Yes Plan: NicoDerm patch and Chantix. Counseled on quitting. Patient is very motivated to try to quit. (6) Polycystic kidney disease Is this a current diagnosis for this admission?: Yes Plan: History of polycystic kidney disease. Has been seen by crm campaign manager as outpatient. Monitor renal function, avoid nephrotoxic meds, monitor volume status. Allergic to ALLEN. Outpatient PCP and nephrology follow-up. - Time Time Spent with patient: 25-34 minutes Smoking Cessation Education: 3 to 10 minutes Medications reviewed and adjusted accordingly: Yes Anticipated Discharge Disposition: Home, Self Care Anticipated Discharge Timeframe: 06/04
[2020-05-23] MEDS ORDERED: ONDANSETRON HCL INJ/PF 4 MG/2 ML SDV IV PRN (12:30)
[2020-05-23] MEDS ORDERED: PROMETHAZINE HCL INJ 25 MG/1 ML VIAL IV PRN (12:30)
[2020-05-23] MEDS: FERROUS SULFATE 325 MG TABLET PO SCH (13:28)
[2020-05-23] MEDS: HYDROCODONE/ACETAMINOPHEN 10-325 MG TABLET PO PRN ×3 (14:48→23:32)
[2020-05-23] MEDS: DOCUSATE SODIUM 100 MG CAPSULE PO SCH (18:53)
[2020-05-23] MEDS: MAG HYDROX/AL HYDROX/SIMETH SUSP 30 ML UDCUP PO PRN (22:25)
[2020-05-23] MEDS: TEMAZEPAM 7.5 MG CAPSULE PO SCH (22:28)
[2020-05-23] MEDS: PHARMACY COMMUNICATION ORDER MC SCH (22:30)
[2020-05-24] MEDS: GABAPENTIN 300 MG CAPSULE PO SCH ×3 (06:26→21:41)
[2020-05-24] MEDS: HYDROCODONE/ACETAMINOPHEN 10-325 MG TABLET PO PRN ×3 (06:26→22:31)
[2020-05-24] MEDS: CEFAZOLIN 2 GM/D5W RTU 2 GM/50 ML RTUPB IV SCH ×3 (06:26→21:41)
[2020-05-24 07:09] LABS: ANION GAP 5 (5-19); BLOOD UREA NITROGEN 17 mg/dL (7-20); CARBON DIOXIDE 31 mmol/L (22-30); CHLORIDE 102 mmol/L (98-107); GLUCOSE 95 mg/dL (75-110); POTASSIUM 4.7 mmol/L (3.6-5.0)
[2020-05-24] MEDS: NICOTINE 21 MG/24 HR PATCH.TD24 TD SCH (10:42)
[2020-05-24] MEDS: ASPIRIN 325 MG TABLET, ENT COATED PO SCH (10:42)
[2020-05-24] MEDS: DOCUSATE SODIUM 100 MG CAPSULE PO SCH ×2 (10:42→18:17)
[2020-05-24] MEDS: METOPROLOL TARTRATE 25 MG TABLET PO SCH ×2 (10:43→21:41)
[2020-05-24] MEDS: AMIODARONE HCL 200 MG TABLET PO SCH (10:43)
[2020-05-24] MEDS: MORPHINE SULFATE 10 MG/ML INJ IV PRN ×3 (11:02→20:56)
[2020-05-24] MEDS: FLUTICASONE NASAL SPRAY 50 MCG/SPRY 120 SPRAY/16 GM NASL SCH ×2 (11:09→21:40)
[2020-05-24] MEDS: LIDOCAINE 5% (700 MG) TRANSDERMAL ADH..PATCH TP SCH (11:10)
[2020-05-24] MEDS: VARENICLINE TARTRATE 1 MG TABLET PO SCH (11:10)
[2020-05-24] MEDS: LORATADINE 10 MG TABLET PO SCH (11:13)
[2020-05-24] MEDS: FERROUS SULFATE 325 MG TABLET PO SCH (11:13)
--- NOTE | 2020-05-24 11:57 | PDOC PROGRESS REPORT ---
Subjective Progress Note for:: 05/24/20 Subjective:: NANCIE SCHROEDER is a 39 year old male past medical history of IV drug abuse, hepatitis C, polycystic kidney disease, CKD, MSSA bacteremia who was recently diagnosed with aortic valve bacterial endocarditis with vegetation at [facility], was transferred to [facility] where he underwent aortic valve bioprosthetic replacement, unfortunately while at [facility], he had new onset A. fib, consumptive coagulopathy and vasogenic shock but did have successful bioprosthetic aortic valve replacement. Patient still needs IV antibiotics until 06/04/2020 therefore he was transferred back to [facility] to finish his antibiotic course. On my encounter patient comfortably resting in bed in no apparent distress, seems to be in very good spirit, complaining of sore chest residual from his surgery, bilateral lower extremity pain and erythema has resolved, patient is now ambulatory and having normal bowel and bladder movements, patient is denying any shortness of breath, anginal chest pain, orthopnea, paroxysmal nocturnal dyspnea, weakness, fever, chills, nausea, vomiting, diarrhea, constipation or any urinary symptoms. Refusing DVT prophylaxis and IV fluids. 05/22/2020. No acute events overnight. Comfortably sitting up in apparent distress, denies any fever, chills, nausea, vomiting, diarrhea, constipation or any urinary symptoms. Complaining of sore chest at the surgical site, denies any fever, ambulatory, p.o. tolerant, having normal bowel and bladder movements. Refusing DVT prophylaxis and IV fluids. 05/23/2020. No acute events overnight. Patient keeps complaining about sore chest pain at the site of his thoracotomy, he is stating that at the other hospital he was receiving Toradol and ibuprofen and it was helping him with his pain, I have mentioned to patient that he has polycystic kidney disease and on top of that he has CKD and it is nadvisable for him to use NSAIDs as it may worsen his renal function, patient voiced understanding and wants his other pain regimen to be increased instead, otherwise denies any fever, chills, nausea, shortness of breath, diarrhea, constipation or any urinary symptoms. He wants his Robaxin and Unisom to be discontinued. Ambulatory. Having normal bowel and bladder movements. 05/24/2020. No acute events overnight. Patient still complaining of chest pain at the site of surgical intervention, Percocet was increased to 10 yesterday however still not enough, would like to try IV morphine, I have warned him about possibility of opiate dependency, patient is stating that he would like to try it and see if it works, unfortunate not a candidate for NSAIDs due to history of polycystic kidney disease and CKD. Denies any fever, chills, nausea, vomiting, diarrhea, constipation or any urinary symptoms. Ambulatory. P.o. tolerant and having normal bowel and bladder function. 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 ABSENT: rales, rhonchi, wheezes GI/Abdominal exam: PRESENT: normal bowel sounds, soft, other - Sternal thoracotomy wound looks clean, no sign of infection.. ABSENT: distended, g uarding, mass, organolmegaly, rebound, tenderness Neurological exam: PRESENT: alert, awake, oriented to person, oriented to place, oriented to time, oriented to situation, CN II-XII grossly intact. ABSENT: motor sensory deficit Skin exam: PRESENT: dry, intact, warm. ABSENT: cyanosis, rash Results Laboratory Results: 05/23/20 06:23 05/24/20 06:22 05/24/20 06:22 Sodium 137.7 Potassium 4.7 Chloride 102 Carbon Dioxide 31 H Anion Gap 5 BUN 17 Creatinine 1.29 H Est GFR ( Amer) > 60 Glucose 95 Calcium 9.0 Assessment and Plan - Diagnosis (1) Endocarditis due to methicillin susceptible Staphylococcus aureus (MSSA) Is this a current diagnosis for this admission?: Yes Plan: Status post bioprosthetic aortic valve replacement at [facility]. On cefazolin 2 g IV every 8. Last day of antibiotic 06/04/2020. Patient has outpatient follow-up with cardiothoracic surgeon for evaluation of his aortic valve. CBC WNL. Afebrile. Vitals stable. Continue IV antibiotics. Monitor vitals. (2) New onset a-fib Is this a current diagnosis for this admission?: Yes Plan: New onset paroxysmal A. fib. Was diagnosed at [facility] on April 2020. Currently sinus rhythm. Rate controlled. On amiodarone. Does not require chronic anticoagulation. Continue amiodarone. Continue telemetry. Outpatient PCP and cardiology follow- up. (3) CKD (chronic kidney disease) Qualifiers: Chronic kidney disease stage: stage 2 (mild) Qualified Code(s): N18.2 - Chronic kidney disease, stage 2 (mild) Is this a current diagnosis for this admission?: Yes Plan: History of polycystic kidney disease. Mildly elevated creatinine. Electrolytes WNL. Euvolemic. Monitor volume status and electrolytes. Avoid nephrotoxic meds. (4) Hepatitis C Qualifiers: Viral hepatitis chronicity: unspecified Is this a current diagnosis for this admission?: Yes Plan: Outpatient PCP follow-up. Liver function WNL. PT/INR WNL. (5) Tobacco dependence Is this a current diagnosis for this admission?: Yes Plan: NicoDerm patch and Chantix. Counseled on quitting. Patient is very motivated to try to quit. (6) Polycystic kidney disease Is this a current diagnosis for this admission?: Yes Plan: History of polycystic kidney disease. Has been seen by frame expander as outpatient. Monitor renal function, avoid nephrotoxic meds, monitor volume status. Allergic to ALLEN. Outpatient PCP and nephrology follow-up. - Time Time Spent with patient: 25-34 minutes Medications reviewed and adjusted accordingly: Yes Anticipated Discharge Disposition: Home, Self Care Anticipated Discharge Timeframe: 06/04
[2020-05-24] MEDS: PHARMACY COMMUNICATION ORDER MC SCH (22:10)
[2020-05-24] MEDS: TEMAZEPAM 7.5 MG CAPSULE PO SCH (22:30)
[2020-05-25] MEDS: GABAPENTIN 300 MG CAPSULE PO SCH ×3 (05:22→21:56)
[2020-05-25] MEDS: MORPHINE SULFATE 10 MG/ML INJ IV PRN ×4 (05:22→22:06)
[2020-05-25] MEDS: CEFAZOLIN 2 GM/D5W RTU 2 GM/50 ML RTUPB IV SCH ×3 (05:26→21:56)
[2020-05-25] MEDS: HYDROCODONE/ACETAMINOPHEN 10-325 MG TABLET PO PRN ×4 (08:02→23:59)
[2020-05-25] MEDS: PANTOPRAZOLE SODIUM 40 MG TABLET.DR PO SCH (08:02)
[2020-05-25] MEDS: ASPIRIN 325 MG TABLET, ENT COATED PO SCH (10:49)
[2020-05-25] MEDS: METOPROLOL TARTRATE 25 MG TABLET PO SCH ×2 (10:49→21:56)
[2020-05-25] MEDS: AMIODARONE HCL 200 MG TABLET PO SCH (10:50)
[2020-05-25] MEDS: VARENICLINE TARTRATE 1 MG TABLET PO SCH (10:51)
[2020-05-25] MEDS: LORATADINE 10 MG TABLET PO SCH (10:51)
[2020-05-25] MEDS: DOCUSATE SODIUM 100 MG CAPSULE PO SCH ×2 (10:51→17:49)
[2020-05-25] MEDS: MAG HYDROX/AL HYDROX/SIMETH SUSP 30 ML UDCUP PO PRN (10:52)
[2020-05-25] MEDS: FLUTICASONE NASAL SPRAY 50 MCG/SPRY 120 SPRAY/16 GM NASL SCH ×2 (10:52→21:56)
[2020-05-25] MEDS: LIDOCAINE 5% (700 MG) TRANSDERMAL ADH..PATCH TP SCH (10:53)
[2020-05-25] MEDS: NICOTINE 21 MG/24 HR PATCH.TD24 TD SCH (10:55)
[2020-05-25] MEDS: FERROUS SULFATE 325 MG TABLET PO SCH (11:14)
--- NOTE | 2020-05-25 14:58 | PDOC PROGRESS REPORT ---
Subjective Progress Note for:: 05/25/20 Subjective:: NANCIE SCHROEDER is a 39 year old male past medical history of IV drug abuse, hepatitis C, polycystic kidney disease, CKD, MSSA bacteremia who was recently diagnosed with aortic valve bacterial endocarditis with vegetation at [facility], was transferred to [facility] where he underwent aortic valve bioprosthetic replacement, unfortunately while at [facility], he had new onset A. fib, consumptive coagulopathy and vasogenic shock but did have successful bioprosthetic aortic valve replacement. Patient still needs IV antibiotics until 06/04/2020 therefore he was transferred back to [facility] to finish his antibiotic course. On my encounter patient comfortably resting in bed in no apparent distress, seems to be in very good spirit, complaining of sore chest residual from his surgery, bilateral lower extremity pain and erythema has resolved, patient is now ambulatory and having normal bowel and bladder movements, patient is denying any shortness of breath, anginal chest pain, orthopnea, paroxysmal nocturnal dyspnea, weakness, fever, chills, nausea, vomiting, diarrhea, constipation or any urinary symptoms. Refusing DVT prophylaxis and IV fluids. 05/22/2020. No acute events overnight. Comfortably sitting up in apparent distress, denies any fever, chills, nausea, vomiting, diarrhea, constipation or any urinary symptoms. Complaining of sore chest at the surgical site, denies any fever, ambulatory, p.o. tolerant, having normal bowel and bladder movements. Refusing DVT prophylaxis and IV fluids. 05/23/2020. No acute events overnight. Patient keeps complaining about sore chest pain at the site of his thoracotomy, he is stating that at the other hospital he was receiving Toradol and ibuprofen and it was helping him with his pain, I have mentioned to patient that he has polycystic kidney disease and on top of that he has CKD and it is nadvisable for him to use NSAIDs as it may worsen his renal function, patient voiced understanding and wants his other pain regimen to be increased instead, otherwise denies any fever, chills, nausea, shortness of breath, diarrhea, constipation or any urinary symptoms. He wants his Robaxin and Unisom to be discontinued. Ambulatory. Having normal bowel and bladder movements. 05/24/2020. No acute events overnight. Patient still complaining of chest pain at the site of surgical intervention, Percocet was increased to 10 yesterday however still not enough, would like to try IV morphine, I have warned him about possibility of opiate dependency, patient is stating that he would like to try it and see if it works, unfortunate not a candidate for NSAIDs due to history of polycystic kidney disease and CKD. Denies any fever, chills, nausea, vomiting, diarrhea, constipation or any urinary symptoms. Ambulatory. P.o. tolerant and having normal bowel and bladder function. 05/25/2020. No acute events overnight. Currently resting in bed no apparent stress, denies any fever, chills, nausea, vomiting, diarrhea, constipation or any urinary symptoms. Chest pain is improving with IV morphine. 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 ABSENT: rales, rhonchi, wheezes Cardiovascular exam: PRESENT: RRR, systolic murmur. ABSENT: diastolic murmur, rubs GI/Abdominal exam: PRESENT: normal bowel sounds, soft. ABSENT: distended, guarding, mass, organolmegaly, rebound, tenderness Neurological exam: PRESENT: alert, awake, oriented to person, oriented to place, oriented to time, oriented to situation, CN II-XII grossly intact. ABSENT: motor sensory deficit Results Laboratory Results: 05/23/20 06:23 05/24/20 06:22 Assessment and Plan - Diagnosis (1) Endocarditis due to methicillin susceptible Staphylococcus aureus (MSSA) Is this a current diagnosis for this admission?: Yes Plan: Status post bioprosthetic aortic valve replacement at [facility]. On cefazolin 2 g IV every 8. Last day of antibiotic 06/04/2020. Patient has outpatient follow-up with cardiothoracic surgeon for evaluation of his aortic valve. CBC WNL. Afebrile. Vitals stable. Continue IV antibiotics. Monitor vitals. (2) New onset a-fib Is this a current diagnosis for this admission?: Yes Plan: New onset paroxysmal A. fib. Was diagnosed at [facility] on April 2020. Currently sinus rhythm. Rate controlled. On amiodarone. Does not require chronic anticoagulation. Continue amiodarone. Continue telemetry. Outpatient PCP and cardiology follow- up. (3) CKD (chronic kidney disease) Qualifiers: Chronic kidney disease stage: stage 2 (mild) Qualified Code(s): N18.2 - Chronic kidney disease, stage 2 (mild) Is this a current diagnosis for this admission?: Yes Plan: History of polycystic kidney disease. Mildly elevated creatinine. Electrolytes WNL. Euvolemic. Monitor volume status and electrolytes. Avoid nephrotoxic meds. (4) Hepatitis C Qualifiers: Viral hepatitis chronicity: unspecified Is this a current diagnosis for this admission?: Yes Plan: Outpatient PCP follow-up. Liver function WNL. PT/INR WNL. (5) Tobacco dependence Is this a current diagnosis for this admission?: Yes Plan: NicoDerm patch and Chantix. Counseled on quitting. Patient is very motivated to try to quit. (6) Polycystic kidney disease Is this a current diagnosis for this admission?: Yes Plan: History of polycystic kidney disease. Has been seen by business architect as outpatient. Monitor renal function, avoid nephrotoxic meds, monitor volume status. Allergic to ALLEN. Outpatient PCP and nephrology follow-up. - Time Time Spent with patient: 25-34 minutes Smoking Cessation Education: 3 to 10 minutes Medications reviewed and adjusted accordingly: Yes Anticipated Discharge Disposition: Home, Self Care Anticipated Discharge Timeframe: 06/04/20
[2020-05-25] MEDS: TEMAZEPAM 7.5 MG CAPSULE PO SCH (21:56)
[2020-05-25] MEDS: PHARMACY COMMUNICATION ORDER MC SCH (21:57)
[2020-05-26] MEDS: MORPHINE SULFATE 10 MG/ML INJ IV PRN ×4 (03:40→20:19)
[2020-05-26] MEDS: GABAPENTIN 300 MG CAPSULE PO SCH ×3 (06:13→23:09)
[2020-05-26] MEDS: HYDROCODONE/ACETAMINOPHEN 10-325 MG TABLET PO PRN (06:13)
[2020-05-26] MEDS: PANTOPRAZOLE SODIUM 40 MG TABLET.DR PO SCH (06:14)
[2020-05-26] MEDS: CEFAZOLIN 2 GM/D5W RTU 2 GM/50 ML RTUPB IV SCH ×3 (06:14→23:06)
[2020-05-26] MEDS: METOPROLOL TARTRATE 25 MG TABLET PO SCH ×2 (10:09→23:08)
[2020-05-26] MEDS: FERROUS SULFATE 325 MG TABLET PO SCH (10:09)
[2020-05-26] MEDS: DOCUSATE SODIUM 100 MG CAPSULE PO SCH ×2 (10:10→17:51)
[2020-05-26] MEDS: ASPIRIN 325 MG TABLET, ENT COATED PO SCH (10:10)
[2020-05-26] MEDS: LORATADINE 10 MG TABLET PO SCH (10:10)
[2020-05-26] MEDS: AMIODARONE HCL 200 MG TABLET PO SCH (10:10)
[2020-05-26] MEDS: FLUTICASONE NASAL SPRAY 50 MCG/SPRY 120 SPRAY/16 GM NASL SCH ×2 (10:11→23:17)
[2020-05-26] MEDS: VARENICLINE TARTRATE 1 MG TABLET PO SCH (10:11)
[2020-05-26] MEDS: NICOTINE 21 MG/24 HR PATCH.TD24 TD SCH (10:12)
[2020-05-26] MEDS: LIDOCAINE 5% (700 MG) TRANSDERMAL ADH..PATCH TP SCH (10:13)
--- NOTE | 2020-05-26 10:22 | PDOC PROGRESS REPORT ---
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 fib, consumptive coagulopathy and vasogenic shock but did have successful bioprosthetic aortic valve replacement. Patient still needs IV antibiotics until 06/04/2020 therefore he was transferred back to [facility] to finish his antibiotic course. On my encounter patient comfortably resting in bed in no apparent distress, seems to be in very good spirit, complaining of sore chest residual from his surgery, bilateral lower extremity pain and erythema has resolved, patient is now ambulatory and having normal bowel and bladder movements, patient is denying any shortness of breath, anginal chest pain, orthopnea, paroxysmal nocturnal dyspnea, weakness, fever, chills, nausea, vomiting, diarrhea, constipation or any urinary symptoms. Refusing DVT prophylaxis and IV fluids. 05/22/2020. No acute events overnight. Comfortably sitting up in apparent distress, denies any fever, chills, nausea, vomiting, diarrhea, constipation or any urinary symptoms. Complaining of sore chest at the surgical site, denies any fever, ambulatory, p.o. tolerant, having normal bowel and bladder movements. Refusing DVT prophylaxis and IV fluids. 05/23/2020. No acute events overnight. Patient keeps complaining about sore chest pain at the site of his thoracotomy, he is stating that at the other hospital he was receiving Toradol and ibuprofen and it was helping him with his pain, I have mentioned to patient that he has polycystic kidney disease and on top of that he has CKD and it is nadvisable for him to use NSAIDs as it may worsen his renal function, patient voiced understanding and wants his other pain regimen to be increased instead, otherwise denies any fever, chills, nausea, shortness of breath, diarrhea, constipation or any urinary symptoms. He wants his Robaxin and Unisom to be discontinued. Ambulatory. Having normal bowel and bladder movements. 05/24/2020. No acute events overnight. Patient still complaining of chest pain at the site of surgical intervention, Percocet was increased to 10 yesterday however still not enough, would like to try IV morphine, I have warned him about possibility of opiate dependency, patient is stating that he would like to try it and see if it works, unfortunate not a candidate for NSAIDs due to history of polycystic kidney disease and CKD. Denies any fever, chills, nausea, vomiting, diarrhea, constipation or any urinary symptoms. Ambulatory. P.o. tolerant and having normal bowel and bladder function. 05/25/2020. No acute events overnight. Currently resting in bed no apparent stress, denies any fever, chills, nausea, vomiting, diarrhea, constipation or any urinary symptoms. Chest pain is improving with IV morphine. 05/26/2020. No acute events overnight. Ambulatory, having normal bowel, denies any fever, chills, nausea, vomiting, diarrhea, constipation or any urinary symptoms. Patient still complaining of persistent chest pain at the surgical site stating morphine and [place] does not help he wants his [place] to be switched to Percocet. 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, CORRECTION IV ANTIBIOTIC USE Physical Exam Vital Signs: Temp Pulse Resp BP Pulse Ox 98.2 F 79 16 111/70 100 05/26/20 07:48 05/26/20 07:48 05/26/20 07:48 05/26/20 07:48 05/26/20 07:48 Intake & Output 05/25/20 05/26/20 05/27/20 06:59 06:59 06:59 Intake Total 920 1380 Balance 920 1380 Weight 74.1 kg 74.2 kg General appearance: PRESENT: no acute distress, well-developed, well-nourished Head exam: PRESENT: atraumatic, normocephalic Respiratory exam: PRESENT: clear to auscultation nils. ABSENT: rales, rhonchi, wheezes Cardiovascular exam: PRESENT: RRR, systolic murmur, other - Thoracotomy wound clean, no sign of infection, no erythema.. ABSENT: diastolic murmur, rubs GI/Abdominal exam: PRESENT: normal bowel sounds, soft. ABSENT: distended, guarding, mass, organolmegaly, rebound, tenderness Neurological exam: PRESENT: alert, awake, oriented to person, oriented to place, oriented to time, oriented to situation, CN II-XII grossly intact. ABSENT: motor sensory deficit Results Laboratory Results: 05/23/20 06:23 05/24/20 06:22 Assessment and Plan - Diagnosis (1) Endocarditis due to methicillin susceptible Staphylococcus aureus (MSSA) Is this a current diagnosis for this admission?: Yes Plan: Status post bioprosthetic aortic valve replacement at [facility]. On cefazolin 2 g IV every 8. Last day of antibiotic 06/04/2020. Patient has outpatient follow-up with cardiothoracic surgeon for evaluation of his aortic valve. CBC WNL. Afebrile. Vitals stable. Continue IV antibiotics. Monitor vitals. (2) New onset a-fib Is this a current diagnosis for this admission?: Yes Plan: New onset paroxysmal A. fib. Was diagnosed at [facility] on April 2020. Currently sinus rhythm. Rate controlled. On amiodarone. Does not require chronic anticoagulation. Continue amiodarone. Continue telemetry. Outpatient PCP and cardiology follow- up. (3) CKD (chronic kidney disease) Qualifiers: Chronic kidney disease stage: stage 2 (mild) Qualified Code(s): N18.2 - Chronic kidney disease, stage 2 (mild) Is this a current diagnosis for this admission?: Yes Plan: History of polycystic kidney disease. Mildly elevated creatinine. Electrolytes WNL. Euvolemic. Monitor volume status and electrolytes. Avoid nephrotoxic meds. (4) Hepatitis C Qualifiers: Viral hepatitis chronicity: unspecified Is this a current diagnosis for this admission?: Yes Plan: Outpatient PCP follow-up. Liver function WNL. PT/INR WNL. (5) Tobacco dependence Is this a current diagnosis for this admission?: Yes Plan: NicoDerm patch and Chantix. Counseled on quitting. Patient is very motivated to try to quit. (6) Polycystic kidney disease Is this a current diagnosis for this admission?: Yes Plan: History of polycystic kidney disease. Has been seen by small lot operator as outpatient. Monitor renal function, avoid nephrotoxic meds, monitor volume status. Allergic to ALLEN. Outpatient PCP and nephrology follow-up. - Time Time Spent with patient: 25-34 minutes Medications reviewed and adjusted accordingly: Yes Anticipated Discharge Disposition: Home, Self Care Anticipated Discharge Timeframe: 06/04/2020
[2020-05-26] MEDS: TIZANIDINE HCL 4 MG TABLET PO SCH ×2 (14:39→23:10)
[2020-05-26] MEDS: OXYCODONE-ACETAMINOPHEN 5-325 MG TABLET PO PRN ×2 (16:50→23:10)
[2020-05-26] MEDS: PHARMACY COMMUNICATION ORDER MC SCH (23:09)
[2020-05-26] MEDS: TEMAZEPAM 7.5 MG CAPSULE PO SCH (23:10)
[2020-05-27] MEDS: CEFAZOLIN 2 GM/D5W RTU 2 GM/50 ML RTUPB IV SCH ×3 (06:10→21:22)
[2020-05-27] MEDS: PANTOPRAZOLE SODIUM 40 MG TABLET.DR PO SCH (06:10)
[2020-05-27] MEDS: TIZANIDINE HCL 4 MG TABLET PO SCH ×3 (06:11→21:14)
[2020-05-27] MEDS: GABAPENTIN 300 MG CAPSULE PO SCH ×3 (06:11→21:14)
[2020-05-27] MEDS: OXYCODONE-ACETAMINOPHEN 5-325 MG TABLET PO PRN ×3 (06:18→19:49)
[2020-05-27] MEDS: AMIODARONE HCL 200 MG TABLET PO SCH (09:40)
[2020-05-27] MEDS: LORATADINE 10 MG TABLET PO SCH (09:40)
[2020-05-27] MEDS: VARENICLINE TARTRATE 1 MG TABLET PO SCH (09:40)
[2020-05-27] MEDS: METOPROLOL TARTRATE 25 MG TABLET PO SCH ×2 (09:40→21:14)
[2020-05-27] MEDS: DOCUSATE SODIUM 100 MG CAPSULE PO SCH ×2 (09:41→17:34)
[2020-05-27] MEDS: FLUTICASONE NASAL SPRAY 50 MCG/SPRY 120 SPRAY/16 GM NASL SCH ×2 (09:41→21:22)
[2020-05-27] MEDS: NICOTINE 21 MG/24 HR PATCH.TD24 TD SCH (09:41)
[2020-05-27] MEDS: ASPIRIN 325 MG TABLET, ENT COATED PO SCH (09:41)
[2020-05-27] MEDS: LIDOCAINE 5% (700 MG) TRANSDERMAL ADH..PATCH TP SCH (09:42)
[2020-05-27] MEDS: MORPHINE SULFATE 10 MG/ML INJ IV PRN ×3 (09:44→21:23)
[2020-05-27] MEDS: FERROUS SULFATE 325 MG TABLET PO SCH (09:44)
--- NOTE | 2020-05-27 13:24 | PDOC PROGRESS REPORT ---
Subjective Progress Note for:: 05/27/20 Subjective:: NANCIE SCHROEDER is a 39 year old male past medical history of IV drug abuse, hepatitis C, polycystic kidney disease, CKD, MSSA bacteremia who was recently diagnosed with aortic valve bacterial endocarditis with vegetation at [facility], was transferred to [facility] where he underwent aortic valve bioprosthetic replacement, unfortunately while at [facility], he had new onset A. fib, consumptive coagulopathy and vasogenic shock but did have successful bioprosthetic aortic valve replacement. Patient still needs IV antibiotics until 06/04/2020 therefore he was transferred back to [facility] to finish his antibiotic course. On my encounter patient comfortably resting in bed in no apparent distress, seems to be in very good spirit, complaining of sore chest residual from his surgery, bilateral lower extremity pain and erythema has resolved, patient is now ambulatory and having normal bowel and bladder movements, patient is denying any shortness of breath, anginal chest pain, orthopnea, paroxysmal nocturnal dyspnea, weakness, fever, chills, nausea, vomiting, diarrhea, constipation or any urinary symptoms. Refusing DVT prophylaxis and IV fluids. 05/22/2020. No acute events overnight. Comfortably sitting up in apparent distress, denies any fever, chills, nausea, vomiting, diarrhea, constipation or any urinary symptoms. Complaining of sore chest at the surgical site, denies any fever, ambulatory, p.o. tolerant, having normal bowel and bladder movements. Refusing DVT prophylaxis and IV fluids. 05/23/2020. No acute events overnight. Patient keeps complaining about sore chest pain at the site of his thoracotomy, he is stating that at the other hospital he was receiving Toradol and ibuprofen and it was helping him with his pain, I have mentioned to patient that he has polycystic kidney disease and on top of that he has CKD and it is nadvisable for him to use NSAIDs as it may worsen his renal function, patient voiced understanding and wants his other pain regimen to be increased instead, otherwise denies any fever, chills, nausea, shortness of breath, diarrhea, constipation or any urinary symptoms. He wants his Robaxin and Unisom to be discontinued. Ambulatory. Having normal bowel and bladder movements. 05/24/2020. No acute events overnight. Patient still complaining of chest pain at the site of surgical intervention, Percocet was increased to 10 yesterday however still not enough, would like to try IV morphine, I have warned him about possibility of opiate dependency, patient is stating that he would like to try it and see if it works, unfortunate not a candidate for NSAIDs due to history of polycystic kidney disease and CKD. Denies any fever, chills, nausea, vomiting, diarrhea, constipation or any urinary symptoms. Ambulatory. P.o. tolerant and having normal bowel and bladder function. 05/25/2020. No acute events overnight. Currently resting in bed no apparent stress, denies any fever, chills, nausea, vomiting, diarrhea, constipation or any urinary symptoms. Chest pain is improving with IV morphine. 05/26/2020. No acute events overnight. Ambulatory, having normal bowel, denies any fever, chills, nausea, vomiting, diarrhea, constipation or any urinary symptoms. Patient still complaining of persistent chest pain at the surgical site stating morphine and [place] does not help he wants his [place] to be switched to Percocet. 05/27/2020. No acute events overnight. Denies any fever, chills, nausea, vomiting, diarrhea, constipation or any urinary symptoms. Chest pain is controlled with IV morphine and p.o. Percocet, tizanidine did not help much and he wants him to be stopped. 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, FIGURE SKATER IV ANTIBIOTIC USE Physical Exam Vital Signs: Temp Pulse Resp BP Pulse Ox 98.1 F 76 17 120/77 100 05/26/20 23:27 05/26/20 23:27 05/26/20 23:27 05/26/20 23:27 05/26/20 23:27 Intake & Output 05/26/20 05/27/20 05/28/20 06:59 06:59 06:59 Intake Total 1380 1581 50 Balance 1380 1581 50 Weight 74.2 kg 76.5 kg General appearance: PRESENT: no acute distress, well-developed, well-nourished Head exam: PRESENT: atraumatic, normocephalic Respiratory exam: PRESENT: clear to auscultation nils. ABSENT: rales, rhonchi, wheezes Cardiovascular exam: PRESENT: RRR, other - Thoracotomy scar looks clean, no sign of discharge or tenderness.. ABSENT: diastolic murmur, rubs, systolic murmur GI/Abdominal exam: PRESENT: normal bowel sounds, soft. ABSENT: distended, guarding, mass, organolmegaly, rebound, tenderness Neurological exam: PRESENT: alert, awake, oriented to person, oriented to place, oriented to time, oriented to situation, CN II-XII grossly intact. ABSENT: motor sensory deficit Results Laboratory Results: 05/23/20 06:23 05/24/20 06:22 Assessment and Plan - Diagnosis (1) Endocarditis due to methicillin susceptible Staphylococcus aureus (MSSA) Is this a current diagnosis for this admission?: Yes Plan: Status post bioprosthetic aortic valve replacement at [facility]. On cefazolin 2 g IV every 8. Last day of antibiotic 06/04/2020. Patient has outpatient follow-up with cardiothoracic surgeon for evaluation of his aortic valve. CBC WNL. Afebrile. Vitals stable. Continue IV antibiotics. Monitor vitals. (2) New onset a-fib Is this a current diagnosis for this admission?: Yes Plan: New onset paroxysmal A. fib. Was diagnosed at [facility] on April 2020. Currently sinus rhythm. Rate controlled. On amiodarone. Does not require chronic anticoagulation. Continue amiodarone. Continue telemetry. Outpatient PCP and cardiology follow- up. (3) CKD (chronic kidney disease) Qualifiers: Chronic kidney disease stage: stage 2 (mild) Qualified Code(s): N18.2 - Chronic kidney disease, stage 2 (mild) Is this a current diagnosis for this admission?: Yes Plan: History of polycystic kidney disease. Mildly elevated creatinine. Electrolytes WNL. Euvolemic. Monitor volume status and electrolytes. Avoid nephrotoxic meds. (4) Hepatitis C Qualifiers: Viral hepatitis chronicity: unspecified Is this a current diagnosis for this admission?: Yes Plan: Outpatient PCP follow-up. Liver function WNL. PT/INR WNL. (5) Tobacco dependence Is this a current diagnosis for this admission?: Yes Plan: NicoDerm patch and Chantix. Counseled on quitting. Patient is very motivated to try to quit. (6) Polycystic kidney disease Is this a current diagnosis for this admission?: Yes Plan: History of polycystic kidney disease. Has been seen by deckhand fishing vessel as outpatient. Monitor renal function, avoid nephrotoxic meds, monitor volume status. Allergic to ALLEN. Outpatient PCP and nephrology follow-up. - Time Time Spent with patient: 15-24 minutes Smoking Cessation Education: 3 to 10 minutes Medications reviewed and adjusted accordingly: Yes Anticipated Discharge Disposition: Home, Self Care Anticipated Discharge Timeframe: 06/04/2020
[2020-05-27] MEDS: MAG HYDROX/AL HYDROX/SIMETH SUSP 30 ML UDCUP PO PRN (21:22)
[2020-05-27] MEDS: PHARMACY COMMUNICATION ORDER MC SCH (21:22)
[2020-05-27] MEDS: TEMAZEPAM 7.5 MG CAPSULE PO SCH (21:33)
[2020-05-28] MEDS: MORPHINE SULFATE 10 MG/ML INJ IV PRN ×3 (01:34→19:56)
[2020-05-28] MEDS: OXYCODONE-ACETAMINOPHEN 5-325 MG TABLET PO PRN ×4 (02:06→23:38)
[2020-05-28] MEDS: GABAPENTIN 300 MG CAPSULE PO SCH ×3 (07:01→23:38)
[2020-05-28] MEDS: CEFAZOLIN 2 GM/D5W RTU 2 GM/50 ML RTUPB IV SCH ×3 (07:01→23:39)
[2020-05-28] MEDS: TIZANIDINE HCL 4 MG TABLET PO SCH (07:01)
[2020-05-28] MEDS: PANTOPRAZOLE SODIUM 40 MG TABLET.DR PO SCH (07:01)
[2020-05-28 07:23] LABS: HEMATOCRIT 25.7 % (37.9-51.0); HEMOGLOBIN 8.5 g/dL (13.5-17.0); MEAN CORPUSCULAR HEMOGLOBIN 27.7 pg (27.0-33.4); MEAN CORPUSCULAR HGB CONC 33.2 g/dL (32.0-36.0); MEAN CORPUSCULAR VOLUME 84 fl (80-97); PLATELET COUNT 490 10^3/uL (150-450); RED BLOOD COUNT 3.08 10^6/uL (4.35-5.55); RED CELL DISTRIBUTION WIDTH 14.1 % (11.5-14.0); WHITE BLOOD COUNT 7.2 10^3/uL (4.0-10.5)
[2020-05-28 07:46] LABS: ALBUMIN 3.3 g/dL (3.5-5.0); ALKALINE PHOSPHATASE 92 U/L (38-126); ANION GAP 8 (5-19); ASPARTATE AMINO TRANSFERASE 20 U/L (17-59); BILIRUBIN,TOTAL 0.2 mg/dL (0.2-1.3); BLOOD UREA NITROGEN 16 mg/dL (7-20); CARBON DIOXIDE 30 mmol/L (22-30); CHLORIDE 99 mmol/L (98-107); GLUCOSE 98 mg/dL (75-110); POTASSIUM 4.7 mmol/L (3.6-5.0); TOTAL PROTEIN 6.7 g/dL (6.3-8.2)
[2020-05-28] MEDS: METOPROLOL TARTRATE 25 MG TABLET PO SCH (10:13)
[2020-05-28] MEDS: DOCUSATE SODIUM 100 MG CAPSULE PO SCH ×2 (10:13→18:30)
[2020-05-28] MEDS: LORATADINE 10 MG TABLET PO SCH (10:13)
[2020-05-28] MEDS: AMIODARONE HCL 200 MG TABLET PO SCH (10:14)
[2020-05-28] MEDS: ASPIRIN 325 MG TABLET, ENT COATED PO SCH (10:15)
[2020-05-28] MEDS: FERROUS SULFATE 325 MG TABLET PO SCH (10:15)
[2020-05-28] MEDS: NICOTINE 21 MG/24 HR PATCH.TD24 TD SCH (10:16)
[2020-05-28] MEDS: LIDOCAINE 5% (700 MG) TRANSDERMAL ADH..PATCH TP SCH (10:17)
[2020-05-28] MEDS: FLUTICASONE NASAL SPRAY 50 MCG/SPRY 120 SPRAY/16 GM NASL SCH ×2 (10:18→23:39)
[2020-05-28] MEDS: VARENICLINE TARTRATE 1 MG TABLET PO SCH (12:03)
--- NOTE | 2020-05-28 12:33 | PDOC PROGRESS REPORT ---
Subjective Progress Note for:: 05/28/20 Subjective:: NANCIE SCHROEDER is a 39 year old male past medical history of IV drug abuse, hepatitis C, polycystic kidney disease, CKD, MSSA bacteremia who was recently diagnosed with aortic valve bacterial endocarditis with vegetation at [facility], was transferred to [facility] where he underwent aortic valve bioprosthetic replacement, unfortunately while at [facility], he had new onset A. fib, consumptive coagulopathy and vasogenic shock but did have successful bioprosthetic aortic valve replacement. Patient still needs IV antibiotics until 06/04/2020 therefore he was transferred back to [facility] to finish his antibiotic course. On my encounter patient comfortably resting in bed in no apparent distress, seems to be in very good spirit, complaining of sore chest residual from his surgery, bilateral lower extremity pain and erythema has resolved, patient is now ambulatory and having normal bowel and bladder movements, patient is denying any shortness of breath, anginal chest pain, orthopnea, paroxysmal nocturnal dyspnea, weakness, fever, chills, nausea, vomiting, diarrhea, constipation or any urinary symptoms. Refusing DVT prophylaxis and IV fluids. 05/22/2020. No acute events overnight. Comfortably sitting up in apparent distress, denies any fever, chills, nausea, vomiting, diarrhea, constipation or any urinary symptoms. Complaining of sore chest at the surgical site, denies any fever, ambulatory, p.o. tolerant, having normal bowel and bladder movements. Refusing DVT prophylaxis and IV fluids. 05/23/2020. No acute events overnight. Patient keeps complaining about sore chest pain at the site of his thoracotomy, he is stating that at the other hospital he was receiving Toradol and ibuprofen and it was helping him with his pain, I have mentioned to patient that he has polycystic kidney disease and on top of that he has CKD and it is nadvisable for him to use NSAIDs as it may worsen his renal function, patient voiced understanding and wants his other pain regimen to be increased instead, otherwise denies any fever, chills, nausea, shortness of breath, diarrhea, constipation or any urinary symptoms. He wants his Robaxin and Unisom to be discontinued. Ambulatory. Having normal bowel and bladder movements. 05/24/2020. No acute events overnight. Patient still complaining of chest pain at the site of surgical intervention, Percocet was increased to 10 yesterday however still not enough, would like to try IV morphine, I have warned him about possibility of opiate dependency, patient is stating that he would like to try it and see if it works, unfortunate not a candidate for NSAIDs due to history of polycystic kidney disease and CKD. Denies any fever, chills, nausea, vomiting, diarrhea, constipation or any urinary symptoms. Ambulatory. P.o. tolerant and having normal bowel and bladder function. 05/25/2020. No acute events overnight. Currently resting in bed no apparent stress, denies any fever, chills, nausea, vomiting, diarrhea, constipation or any urinary symptoms. Chest pain is improving with IV morphine. 05/26/2020. No acute events overnight. Ambulatory, having normal bowel, denies any fever, chills, nausea, vomiting, diarrhea, constipation or any urinary symptoms. Patient still complaining of persistent chest pain at the surgical site stating morphine and [place] does not help he wants his [place] to be switched to Percocet. 05/27/2020. No acute events overnight. Denies any fever, chills, nausea, vomiting, diarrhea, constipation or any urinary symptoms. Chest pain is controlled with IV morphine and p.o. Percocet, tizanidine did not help much and he wants him to be stopped. 05/28/2020. No acute events overnight. Denies any fever, chills, nausea, vomiting, diarrhea, constipation or any urinary symptoms. 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, PENITENTIARY IV ANTIBIOTIC USE Physical Exam Vital Signs: Temp Pulse Resp BP Pulse Ox 98.1 F 73 18 113/66 100 05/28/20 11:37 05/28/20 11:37 05/28/20 11:37 05/28/20 11:37 05/28/20 11:37 Intake & Output 05/27/20 05/28/20 05/29/20 06:59 06:59 06:59 Intake Total 1581 1780 420 Balance 1581 1780 420 Weight 76.5 kg 76.5 kg 77.1 kg General appearance: PRESENT: no acute distress, well-developed, well-nourished Head exam: PRESENT: atraumatic, normocephalic Respiratory exam: PRESENT: clear to auscultation nils. ABSENT: rales, rhonchi, wheezes Cardiovascular exam: PRESENT: RRR, other - Thoracotomy looks clean, no sign of infection or discharge.. ABSENT: diastolic murmur, rubs, systolic murmur GI/Abdominal exam: PRESENT: normal bowel sounds, soft. ABSENT: distended, guarding, mass, organolmegaly, rebound, tenderness Neurological exam: PRESENT: alert, awake, oriented to person, oriented to place, oriented to time, oriented to situation, CN II-XII grossly intact. ABSENT: motor sensory deficit Results Laboratory Results: 05/28/20 06:55 05/28/20 06:55 05/28/20 05/28/20 06:55 06:55 WBC 7.2 RBC 3.08 L Hgb 8.5 L Hct 25.7 L MCV 84 MCH 27.7 MCHC 33.2 RDW 14.1 H Plt Count 490 H Sodium 136.5 L Potassium 4.7 Chloride 99 Carbon Dioxide 30 Anion Gap 8 BUN 16 Creatinine 1.37 H Est GFR ( Amer) > 60 Glucose 98 Calcium 9.0 Magnesium 1.8 Total Bilirubin 0.2 AST 20 Alkaline Phosphatase 92 Total Protein 6.7 Albumin 3.3 L Assessment and Plan - Diagnosis (1) Endocarditis due to methicillin susceptible Staphylococcus aureus (MSSA) Is this a current diagnosis for this admission?: Yes Plan: Status post bioprosthetic aortic valve replacement at [facility]. On cefazolin 2 g IV every 8. Last day of antibiotic 06/04/2020. Patient has outpatient follow-up with cardiothoracic surgeon for evaluation of his aortic valve. CBC WNL. Afebrile. Vitals stable. Continue IV antibiotics. Monitor vitals. (2) New onset a-fib Is this a current diagnosis for this admission?: Yes Plan: New onset paroxysmal A. fib. Was diagnosed at [facility] on April 2020. Currently sinus rhythm. Rate controlled. On amiodarone. Does not require chronic anticoagulation. Continue amiodarone. Continue telemetry. Outpatient PCP and cardiology follow- up. (3) CKD (chronic kidney disease) Qualifiers: Chronic kidney disease stage: stage 2 (mild) Qualified Code(s): N18.2 - Chronic kidney disease, stage 2 (mild) Is this a current diagnosis for this admission?: Yes Plan: History of polycystic kidney disease. Mildly elevated creatinine. Electrolytes WNL. Euvolemic. Monitor volume status and electrolytes. Avoid nephrotoxic meds. (4) Hepatitis C Qualifiers: Viral hepatitis chronicity: unspecified Is this a current diagnosis for this admission?: Yes Plan: Outpatient PCP follow-up. Liver function WNL. PT/INR WNL. (5) Tobacco dependence Is this a current diagnosis for this admission?: Yes Plan: NicoDerm patch and Chantix. Counseled on quitting. Patient is very motivated to try to quit. (6) Polycystic kidney disease Is this a current diagnosis for this admission?: Yes Plan: History of polycystic kidney disease. Has been seen by corn detasseler machine operator as outpatient. Monitor renal function, avoid nephrotoxic meds, monitor volume status. Allergic to [place]EN. Outpatient PCP and nephrology follow-up. - Time Time Spent with patient: 25-34 minutes Medications reviewed and adjusted accordingly: Yes Anticipated Discharge Disposition: Home, Self Care Anticipated Discharge Timeframe: 06/04/20
[2020-05-28] MEDS: PHARMACY COMMUNICATION ORDER MC SCH (23:35)
[2020-05-28] MEDS: TEMAZEPAM 7.5 MG CAPSULE PO SCH (23:36)
[2020-05-28] MEDS: NORMAL SALINE INJ/PF 0.9% 10 ML SDV IV SCH (23:39)
[2020-05-29] MEDS: MORPHINE SULFATE 10 MG/ML INJ IV PRN ×4 (05:18→22:42)
[2020-05-29] MEDS: PANTOPRAZOLE SODIUM 40 MG TABLET.DR PO SCH (05:18)
[2020-05-29] MEDS: GABAPENTIN 300 MG CAPSULE PO SCH ×3 (05:19→21:27)
[2020-05-29] MEDS: CEFAZOLIN 2 GM/D5W RTU 2 GM/50 ML RTUPB IV SCH ×3 (05:20→21:26)
[2020-05-29] MEDS: DOCUSATE SODIUM 100 MG CAPSULE PO SCH ×2 (09:06→17:57)
[2020-05-29] MEDS: LORATADINE 10 MG TABLET PO SCH (09:06)
[2020-05-29] MEDS: METOPROLOL SUCCINATE 25 MG TAB.SR.24H PO SCH (09:06)
[2020-05-29] MEDS: NICOTINE 21 MG/24 HR PATCH.TD24 TD SCH (09:08)
[2020-05-29] MEDS: FERROUS SULFATE 325 MG TABLET PO SCH (09:08)
[2020-05-29] MEDS: OXYCODONE-ACETAMINOPHEN 5-325 MG TABLET PO PRN ×3 (09:08→21:26)
[2020-05-29] MEDS: VARENICLINE TARTRATE 1 MG TABLET PO SCH (09:09)
[2020-05-29] MEDS: AMIODARONE HCL 200 MG TABLET PO SCH (09:10)
[2020-05-29] MEDS: ASPIRIN 325 MG TABLET, ENT COATED PO SCH (09:10)
[2020-05-29] MEDS: LIDOCAINE 5% (700 MG) TRANSDERMAL ADH..PATCH TP SCH (09:10)
[2020-05-29] MEDS: NORMAL SALINE INJ/PF 0.9% 10 ML SDV IV SCH ×2 (09:11→21:27)
[2020-05-29] MEDS: FLUTICASONE NASAL SPRAY 50 MCG/SPRY 120 SPRAY/16 GM NASL SCH ×2 (09:12→21:27)
--- NOTE | 2020-05-29 11:57 | PDOC PROGRESS REPORT ---
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 fib, consumptive coagulopathy and vasogenic shock but did have successful bioprosthetic aortic valve replacement. Patient still needs IV antibiotics until 06/04/2020 therefore he was transferred back to [facility] to finish his antibiotic course. On my encounter patient comfortably resting in bed in no apparent distress, seems to be in very good spirit, complaining of sore chest residual from his surgery, bilateral lower extremity pain and erythema has resolved, patient is now ambulatory and having normal bowel and bladder movements, patient is denying any shortness of breath, anginal chest pain, orthopnea, paroxysmal nocturnal dyspnea, weakness, fever, chills, nausea, vomiting, diarrhea, constipation or any urinary symptoms. Refusing DVT prophylaxis and IV fluids. 05/22/2020. No acute events overnight. Comfortably sitting up in apparent distress, denies any fever, chills, nausea, vomiting, diarrhea, constipation or any urinary symptoms. Complaining of sore chest at the surgical site, denies any fever, ambulatory, p.o. tolerant, having normal bowel and bladder movements. Refusing DVT prophylaxis and IV fluids. 05/23/2020. No acute events overnight. Patient keeps complaining about sore chest pain at the site of his thoracotomy, he is stating that at the other hospital he was receiving Toradol and ibuprofen and it was helping him with his pain, I have mentioned to patient that he has polycystic kidney disease and on top of that he has CKD and it is nadvisable for him to use NSAIDs as it may worsen his renal function, patient voiced understanding and wants his other pain regimen to be increased instead, otherwise denies any fever, chills, nausea, shortness of breath, diarrhea, constipation or any urinary symptoms. He wants his Robaxin and Unisom to be discontinued. Ambulatory. Having normal bowel and bladder movements. 05/24/2020. No acute events overnight. Patient still complaining of chest pain at the site of surgical intervention, Percocet was increased to 10 yesterday however still not enough, would like to try IV morphine, I have warned him about possibility of opiate dependency, patient is stating that he would like to try it and see if it works, unfortunate not a candidate for NSAIDs due to history of polycystic kidney disease and CKD. Denies any fever, chills, nausea, vomiting, diarrhea, constipation or any urinary symptoms. Ambulatory. P.o. tolerant and having normal bowel and bladder function. 05/25/2020. No acute events overnight. Currently resting in bed no apparent stress, denies any fever, chills, nausea, vomiting, diarrhea, constipation or any urinary symptoms. Chest pain is improving with IV morphine. 05/26/2020. No acute events overnight. Ambulatory, having normal bowel, denies any fever, chills, nausea, vomiting, diarrhea, constipation or any urinary symptoms. Patient still complaining of persistent chest pain at the surgical site stating morphine and [place] does not help he wants his [place] to be switched to Percocet. 05/27/2020. No acute events overnight. Denies any fever, chills, nausea, vomiting, diarrhea, constipation or any urinary symptoms. Chest pain is controlled with IV morphine and p.o. Percocet, tizanidine did not help much and he wants him to be stopped. 05/28/2020. No acute events overnight. Denies any fever, chills, nausea, vomiting, diarrhea, constipation or any urinary symptoms. 05/29/2020. No acute events overnight. Comfortably sitting up in distress, denies any fever, chills, nausea, vomiting. Ambulatory and having normal bowel and bladder movements. 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, SENIOR CARE IV ANTIBIOTIC USE Physical Exam Vital Signs: Temp Pulse Resp BP Pulse Ox 98.4 F 82 18 105/65 100 05/29/20 08:32 05/29/20 08:32 05/29/20 08:32 05/29/20 08:32 05/29/20 08:32 Intake & Output 05/28/20 05/29/20 05/30/20 06:59 06:59 06:59 Intake Total 1780 2605 Balance 1780 2605 Weight 76.5 kg 76.5 kg General appearance: PRESENT: no acute distress, well-developed, well-nourished Head exam: PRESENT: atraumatic, normocephalic Respiratory exam: PRESENT: clear to auscultation nils. ABSENT: rales, rhonchi, wheezes Cardiovascular exam: PRESENT: RRR, systolic murmur. ABSENT: diastolic murmur, rubs GI/Abdominal exam: PRESENT: normal bowel sounds, soft. ABSENT: distended, guarding, mass, organolmegaly, rebound, tenderness Neurological exam: PRESENT: alert, awake, oriented to person, oriented to place, oriented to time, oriented to situation, CN II-XII grossly intact. ABSENT: motor sensory deficit Results Laboratory Results: 05/28/20 06:55 05/28/20 06:55 Assessment and Plan - Diagnosis (1) Endocarditis due to methicillin susceptible Staphylococcus aureus (MSSA) Is this a current diagnosis for this admission?: Yes Plan: Status post bioprosthetic aortic valve replacement at [facility]. On cefazolin 2 g IV every 8. Last day of antibiotic 06/04/2020. Patient has outpatient follow-up with cardiothoracic surgeon for evaluation of his aortic valve. CBC WNL. Afebrile. Vitals stable. Continue IV antibiotics. Monitor vitals. (2) New onset a-fib Is this a current diagnosis for this admission?: Yes Plan: New onset paroxysmal A. fib. Was diagnosed at [facility] on April 2020. Currently sinus rhythm. Rate controlled. On amiodarone. Does not require chronic anticoagulation. Continue amiodarone. Continue telemetry. Outpatient PCP and cardiology follow- up. (3) CKD (chronic kidney disease) Qualifiers: Chronic kidney disease stage: stage 2 (mild) Qualified Code(s): N18.2 - Chronic kidney disease, stage 2 (mild) Is this a current diagnosis for this admission?: Yes Plan: History of polycystic kidney disease. Mildly elevated creatinine. Electrolytes WNL. Euvolemic. Monitor volume status and electrolytes. Avoid nephrotoxic meds. (4) Hepatitis C Qualifiers: Viral hepatitis chronicity: unspecified Is this a current diagnosis for this admission?: Yes Plan: Outpatient PCP follow-up. Liver function WNL. PT/INR WNL. (5) Tobacco dependence Is this a current diagnosis for this admission?: Yes Plan: NicoDerm patch and Chantix. Counseled on quitting. Patient is very motivated to try to quit. (6) Polycystic kidney disease Is this a current diagnosis for this admission?: Yes Plan: History of polycystic kidney disease. Has been seen by assembler musical equipment as outpatient. Monitor renal function, avoid nephrotoxic meds, monitor volume status. Allergic to ALLEN. Outpatient PCP and nephrology follow-up. - Time Time Spent with patient: 15-24 minutes Medications reviewed and adjusted accordingly: Yes Anticipated Discharge Disposition: Home, Self Care Anticipated Discharge Timeframe: 06/04/2020.
[2020-05-29] MEDS: PHARMACY COMMUNICATION ORDER MC SCH (21:27)
[2020-05-30] MEDS: PANTOPRAZOLE SODIUM 40 MG TABLET.DR PO SCH (06:34)
[2020-05-30] MEDS: GABAPENTIN 300 MG CAPSULE PO SCH ×2 (06:34→15:53)
[2020-05-30] MEDS: CEFAZOLIN 2 GM/D5W RTU 2 GM/50 ML RTUPB IV SCH ×2 (06:34→15:53)
[2020-05-30] MEDS: NICOTINE 21 MG/24 HR PATCH.TD24 TD SCH (10:11)
[2020-05-30] MEDS: LIDOCAINE 5% (700 MG) TRANSDERMAL ADH..PATCH TP SCH (10:11)
[2020-05-30] MEDS: VARENICLINE TARTRATE 1 MG TABLET PO SCH (10:12)
[2020-05-30] MEDS: DOCUSATE SODIUM 100 MG CAPSULE PO SCH ×2 (10:13→18:11)
[2020-05-30] MEDS: AMIODARONE HCL 200 MG TABLET PO SCH (10:13)
[2020-05-30] MEDS: ASPIRIN 325 MG TABLET, ENT COATED PO SCH (10:13)
[2020-05-30] MEDS: METOPROLOL SUCCINATE 25 MG TAB.SR.24H PO SCH (10:13)
[2020-05-30] MEDS: FERROUS SULFATE 325 MG TABLET PO SCH (10:13)
[2020-05-30] MEDS: FLUTICASONE NASAL SPRAY 50 MCG/SPRY 120 SPRAY/16 GM NASL SCH ×2 (10:14→23:49)
[2020-05-30] MEDS: MORPHINE SULFATE 10 MG/ML INJ IV PRN ×2 (10:14→15:53)
[2020-05-30] MEDS: LORATADINE 10 MG TABLET PO SCH (10:15)
[2020-05-30] MEDS: NORMAL SALINE INJ/PF 0.9% 10 ML SDV IV SCH (10:19)
[2020-05-30] MEDS: OXYCODONE-ACETAMINOPHEN 5-325 MG TABLET PO PRN ×2 (12:09→18:11)
--- NOTE | 2020-05-30 12:46 | PDOC PROGRESS REPORT ---
Subjective Progress Note for:: 05/30/20 Subjective:: NANCIE SCHROEDER is a 39 year old male past medical history of IV drug abuse, hepatitis C, polycystic kidney disease, CKD, MSSA bacteremia who was recently diagnosed with aortic valve bacterial endocarditis with vegetation at [facility], was transferred to [facility] where he underwent aortic valve bioprosthetic replacement, unfortunately while at [facility], he had new onset A. fib, consumptive coagulopathy and vasogenic shock but did have successful bioprosthetic aortic valve replacement. Patient still needs IV antibiotics until 06/04/2020 therefore he was transferred back to [facility] to finish his antibiotic course. On my encounter patient comfortably resting in bed in no apparent distress, seems to be in very good spirit, complaining of sore chest residual from his surgery, bilateral lower extremity pain and erythema has resolved, patient is now ambulatory and having normal bowel and bladder movements, patient is denying any shortness of breath, anginal chest pain, orthopnea, paroxysmal nocturnal dyspnea, weakness, fever, chills, nausea, vomiting, diarrhea, constipation or any urinary symptoms. Refusing DVT prophylaxis and IV fluids. 05/22/2020. No acute events overnight. Comfortably sitting up in apparent distress, denies any fever, chills, nausea, vomiting, diarrhea, constipation or any urinary symptoms. Complaining of sore chest at the surgical site, denies any fever, ambulatory, p.o. tolerant, having normal bowel and bladder movements. Refusing DVT prophylaxis and IV fluids. 05/23/2020. No acute events overnight. Patient keeps complaining about sore chest pain at the site of his thoracotomy, he is stating that at the other hospital he was receiving Toradol and ibuprofen and it was helping him with his pain, I have mentioned to patient that he has polycystic kidney disease and on top of that he has CKD and it is nadvisable for him to use NSAIDs as it may worsen his renal function, patient voiced understanding and wants his other pain regimen to be increased instead, otherwise denies any fever, chills, nausea, shortness of breath, diarrhea, constipation or any urinary symptoms. He wants his Robaxin and Unisom to be discontinued. Ambulatory. Having normal bowel and bladder movements. 05/24/2020. No acute events overnight. Patient still complaining of chest pain at the site of surgical intervention, Percocet was increased to 10 yesterday however still not enough, would like to try IV morphine, I have warned him about possibility of opiate dependency, patient is stating that he would like to try it and see if it works, unfortunate not a candidate for NSAIDs due to history of polycystic kidney disease and CKD. Denies any fever, chills, nausea, vomiting, diarrhea, constipation or any urinary symptoms. Ambulatory. P.o. tolerant and having normal bowel and bladder function. 05/25/2020. No acute events overnight. Currently resting in bed no apparent stress, denies any fever, chills, nausea, vomiting, diarrhea, constipation or any urinary symptoms. Chest pain is improving with IV morphine. 05/26/2020. No acute events overnight. Ambulatory, having normal bowel, denies any fever, chills, nausea, vomiting, diarrhea, constipation or any urinary symptoms. Patient still complaining of persistent chest pain at the surgical site stating morphine and [place] does not help he wants his [place] to be switched to Percocet. 05/27/2020. No acute events overnight. Denies any fever, chills, nausea, vomiting, diarrhea, constipation or any urinary symptoms. Chest pain is controlled with IV morphine and p.o. Percocet, tizanidine did not help much and he wants him to be stopped. 05/28/2020. No acute events overnight. Denies any fever, chills, nausea, vomiting, diarrhea, constipation or any urinary symptoms. 05/29/2020. No acute events overnight. Comfortably sitting up in distress, denies any fever, chills, nausea, vomiting. Ambulatory and having normal bowel and bladder movements. 05/30/2020. No acute events overnight. Comfortably distended bladder distress. Denies any chest pain, nausea, vomiting, diarrhea, constipation or any urinary symptoms. 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 ABSENT: rales, rhonchi, wheezes Cardiovascular exam: PRESENT: systolic murmur GI/Abdominal exam: PRESENT: normal bowel sounds, soft. ABSENT: distended, guarding, mass, organolmegaly, rebound, tenderness Neurological exam: PRESENT: alert, awake, oriented to person, oriented to place, oriented to time, oriented to situation, CN II-XII grossly intact. ABSENT: motor sensory deficit Results Laboratory Results: 05/28/20 06:55 05/28/20 06:55 Assessment and Plan - Diagnosis (1) Endocarditis due to methicillin susceptible Staphylococcus aureus (MSSA) Is this a current diagnosis for this admission?: Yes Plan: Status post bioprosthetic aortic valve replacement at [facility]. On cefazolin 2 g IV every 8. Last day of antibiotic 06/04/2020. Patient has outpatient follow-up with cardiothoracic surgeon for evaluation of his aortic valve. CBC WNL. Afebrile. Vitals stable. Continue IV antibiotics. Monitor vitals. (2) New onset a-fib Is this a current diagnosis for this admission?: Yes Plan: New onset paroxysmal A. fib. Was diagnosed at [facility] on April 2020. Currently sinus rhythm. Rate controlled. On amiodarone. Does not require chronic anticoagulation. Continue amiodarone. Continue telemetry. Outpatient PCP and cardiology follow- up. (3) CKD (chronic kidney disease) Qualifiers: Chronic kidney disease stage: stage 2 (mild) Qualified Code(s): N18.2 - Chronic kidney disease, stage 2 (mild) Is this a current diagnosis for this admission?: Yes Plan: History of polycystic kidney disease. Mildly elevated creatinine. Electrolytes WNL. Euvolemic. Monitor volume status and electrolytes. Avoid nephrotoxic meds. (4) Hepatitis C Qualifiers: Viral hepatitis chronicity: unspecified Is this a current diagnosis for this admission?: Yes Plan: Outpatient PCP follow-up. Liver function WNL. PT/INR WNL. (5) Tobacco dependence Is this a current diagnosis for this admission?: Yes Plan: NicoDerm patch and Chantix. Counseled on quitting. Patient is very motivated to try to quit. (6) Polycystic kidney disease Is this a current diagnosis for this admission?: Yes Plan: History of polycystic kidney disease. Has been seen by radiology transporter as outpatient. Monitor renal function, avoid nephrotoxic meds, monitor volume status. Allergic to ALLEN. Outpatient PCP and nephrology follow-up. - Time Time Spent with patient: 15-24 minutes Anticipated Discharge Disposition: Home, Self Care Anticipated Discharge Timeframe: 06/04/2020.
[2020-05-31] MEDS: NORMAL SALINE 10 ML SDV (SCHEDULED) IV SCH ×3 (04:55→22:02)
[2020-05-31] MEDS: PHARMACY COMMUNICATION ORDER MC SCH ×2 (04:55→22:05)
[2020-05-31] MEDS: CEFAZOLIN SODIUM 2 GM in DEXTROSE 5%-WATER 100 ML IV SCH ×2 (04:55→06:45)
[2020-05-31] MEDS: GABAPENTIN 300 MG CAPSULE PO SCH ×4 (04:56→22:01)
[2020-05-31] MEDS: PANTOPRAZOLE SODIUM 40 MG TABLET.DR PO SCH (06:04)
[2020-05-31] MEDS: MORPHINE SULFATE 10 MG/ML INJ IV PRN ×3 (07:33→20:23)
[2020-05-31] MEDS ORDERED: GABAPENTIN 300 MG CAPSULE PO ONE (08:00)
[2020-05-31] MEDS ORDERED: PANTOPRAZOLE SODIUM 40 MG TABLET.DR PO ONE (08:00)
[2020-05-31] MEDS: METOPROLOL SUCCINATE 25 MG TAB.SR.24H PO SCH (09:39)
[2020-05-31] MEDS: LORATADINE 10 MG TABLET PO SCH (09:40)
[2020-05-31] MEDS: DOCUSATE SODIUM 100 MG CAPSULE PO SCH ×2 (09:40→17:15)
[2020-05-31] MEDS: FERROUS SULFATE 325 MG TABLET PO SCH (09:40)
[2020-05-31] MEDS: ASPIRIN 325 MG TABLET, ENT COATED PO SCH (09:40)
[2020-05-31] MEDS: AMIODARONE HCL 200 MG TABLET PO SCH (09:40)
[2020-05-31] MEDS: FLUTICASONE NASAL SPRAY 50 MCG/SPRY 120 SPRAY/16 GM NASL SCH ×2 (09:41→22:01)
[2020-05-31] MEDS: OXYCODONE-ACETAMINOPHEN 5-325 MG TABLET PO PRN ×2 (09:48→17:14)
[2020-05-31] MEDS: LIDOCAINE 5% (700 MG) TRANSDERMAL ADH..PATCH TP SCH (09:49)
[2020-05-31] MEDS: VARENICLINE TARTRATE 1 MG TABLET PO SCH (09:49)
[2020-05-31] MEDS: NICOTINE 21 MG/24 HR PATCH.TD24 TD SCH (09:50)
[2020-05-31] MEDS ORDERED: CEFAZOLIN SODIUM 2 GM in DEXTROSE 5%-WATER 100 ML IV SCH (10:00)
--- NOTE | 2020-05-31 13:01 | PDOC PROGRESS REPORT ---
Subjective Progress Note for:: 05/31/20 Subjective:: NANCIE SCHROEDER is a 39 year old male past medical history of IV drug abuse, hepatitis C, polycystic kidney disease, CKD, MSSA bacteremia who was recently diagnosed with aortic valve bacterial endocarditis with vegetation at [facility], was transferred to [facility] where he underwent aortic valve bioprosthetic replacement, unfortunately while at [facility], he had new onset A. fib, consumptive coagulopathy and vasogenic shock but did have successful bioprosthetic aortic valve replacement. Patient still needs IV antibiotics until 06/04/2020 therefore he was transferred back to [facility] to finish his antibiotic course. On my encounter patient comfortably resting in bed in no apparent distress, seems to be in very good spirit, complaining of sore chest residual from his surgery, bilateral lower extremity pain and erythema has resolved, patient is now ambulatory and having normal bowel and bladder movements, patient is denying any shortness of breath, anginal chest pain, orthopnea, paroxysmal nocturnal dyspnea, weakness, fever, chills, nausea, vomiting, diarrhea, constipation or any urinary symptoms. Refusing DVT prophylaxis and IV fluids. 05/22/2020. No acute events overnight. Comfortably sitting up in apparent distress, denies any fever, chills, nausea, vomiting, diarrhea, constipation or any urinary symptoms. Complaining of sore chest at the surgical site, denies any fever, ambulatory, p.o. tolerant, having normal bowel and bladder movements. Refusing DVT prophylaxis and IV fluids. 05/23/2020. No acute events overnight. Patient keeps complaining about sore chest pain at the site of his thoracotomy, he is stating that at the other hospital he was receiving Toradol and ibuprofen and it was helping him with his pain, I have mentioned to patient that he has polycystic kidney disease and on top of that he has CKD and it is nadvisable for him to use NSAIDs as it may worsen his renal function, patient voiced understanding and wants his other pain regimen to be increased instead, otherwise denies any fever, chills, nausea, shortness of breath, diarrhea, constipation or any urinary symptoms. He wants his Robaxin and Unisom to be discontinued. Ambulatory. Having normal bowel and bladder movements. 05/24/2020. No acute events overnight. Patient still complaining of chest pain at the site of surgical intervention, Percocet was increased to 10 yesterday however still not enough, would like to try IV morphine, I have warned him about possibility of opiate dependency, patient is stating that he would like to try it and see if it works, unfortunate not a candidate for NSAIDs due to history of polycystic kidney disease and CKD. Denies any fever, chills, nausea, vomiting, diarrhea, constipation or any urinary symptoms. Ambulatory. P.o. tolerant and having normal bowel and bladder function. 05/25/2020. No acute events overnight. Currently resting in bed no apparent stress, denies any fever, chills, nausea, vomiting, diarrhea, constipation or any urinary symptoms. Chest pain is improving with IV morphine. 05/26/2020. No acute events overnight. Ambulatory, having normal bowel, denies any fever, chills, nausea, vomiting, diarrhea, constipation or any urinary symptoms. Patient still complaining of persistent chest pain at the surgical site stating morphine and [place] does not help he wants his [place] to be switched to Percocet. 05/27/2020. No acute events overnight. Denies any fever, chills, nausea, vomiting, diarrhea, constipation or any urinary symptoms. Chest pain is controlled with IV morphine and p.o. Percocet, tizanidine did not help much and he wants him to be stopped. 05/28/2020. No acute events overnight. Denies any fever, chills, nausea, vomiting, diarrhea, constipation or any urinary symptoms. 05/29/2020. No acute events overnight. Comfortably sitting up in distress, denies any fever, chills, nausea, vomiting. Ambulatory and having normal bowel and bladder movements. 05/30/2020. No acute events overnight. Comfortably distended bladder distress. Denies any chest pain, nausea, vomiting, diarrhea, constipation or any urinary symptoms. 05/31/2020. No acute events overnight. Denies any fever, chills, nausea, vomiting. Ambulatory. Having normal bowel and bladder movements. 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 ABSENT: rales, rhonchi, wheezes Cardiovascular exam: PRESENT: RRR. ABSENT: diastolic murmur, rubs, systolic murmur GI/Abdominal exam: PRESENT: normal bowel sounds, soft. ABSENT: distended, guarding, mass, organolmegaly, rebound, tenderness Neurological exam: PRESENT: alert, awake, oriented to person, oriented to place, oriented to time, oriented to situation, CN II-XII grossly intact. ABSENT: boris r sensory deficit Results Laboratory Results: 05/28/20 06:55 05/28/20 06:55 Assessment and Plan - Diagnosis (1) Endocarditis due to methicillin susceptible Staphylococcus aureus (MSSA) Is this a current diagnosis for this admission?: Yes Plan: Status post bioprosthetic aortic valve replacement at [facility]. On cefazolin 2 g IV every 8. Last day of antibiotic 06/04/2020. Patient has outpatient follow-up with cardiothoracic surgeon for evaluation of his aortic valve. CBC WNL. Afebrile. Vitals stable. Continue IV antibiotics. Monitor vitals. (2) New onset a-fib Is this a current diagnosis for this admission?: Yes Plan: New onset paroxysmal A. fib. Was diagnosed at [facility] on April 2020. Currently sinus rhythm. Rate controlled. On amiodarone. Does not require chronic anticoagulation. Continue amiodarone. Continue telemetry. Outpatient PCP and cardiology follow- up. (3) CKD (chronic kidney disease) Qualifiers: Chronic kidney disease stage: stage 2 (mild) Qualified Code(s): N18.2 - Chronic kidney disease, stage 2 (mild) Is this a current diagnosis for this admission?: Yes Plan: History of polycystic kidney disease. Mildly elevated creatinine. Electrolytes WNL. Euvolemic. Monitor volume status and electrolytes. Avoid nephrotoxic meds. (4) Hepatitis C Qualifiers: Viral hepatitis chronicity: unspecified Is this a current diagnosis for this admission?: Yes Plan: Outpatient PCP follow-up. Liver function WNL. PT/INR WNL. (5) Tobacco dependence Is this a current diagnosis for this admission?: Yes Plan: NicoDerm patch and Chantix. Counseled on quitting. Patient is very motivated to try to quit. (6) Polycystic kidney disease Is this a current diagnosis for this admission?: Yes Plan: History of polycystic kidney disease. Has been seen by continuous crusher operator as outpatient. Monitor renal function, avoid nephrotoxic meds, monitor volume status. Allergic to ALLEN. Outpatient PCP and nephrology follow-up. - Time Time Spent with patient: 25-34 minutes Medications reviewed and adjusted accordingly: Yes Anticipated Discharge Disposition: Home, Self Care Anticipated Discharge Timeframe: within 72 hours
[2020-06-01] MEDS: OXYCODONE-ACETAMINOPHEN 5-325 MG TABLET PO PRN ×4 (00:14→23:50)
[2020-06-01] MEDS: CEFAZOLIN SODIUM 2 GM in DEXTROSE 5%-WATER 100 ML IV SCH ×3 (02:19→17:26)
[2020-06-01] MEDS: MORPHINE SULFATE 10 MG/ML INJ IV PRN ×4 (02:25→20:04)
[2020-06-01] MEDS: PANTOPRAZOLE SODIUM 40 MG TABLET.DR PO SCH (06:40)
[2020-06-01] MEDS: GABAPENTIN 300 MG CAPSULE PO SCH ×3 (06:44→22:52)
[2020-06-01] MEDS ORDERED: CEFAZOLIN SODIUM 2 GM in DEXTROSE 5%-WATER 100 ML IV SCH (08:00)
[2020-06-01] MEDS: METOPROLOL SUCCINATE 25 MG TAB.SR.24H PO SCH (10:23)
[2020-06-01] MEDS: DOCUSATE SODIUM 100 MG CAPSULE PO SCH ×2 (10:23→17:26)
[2020-06-01] MEDS: AMIODARONE HCL 200 MG TABLET PO SCH (10:25)
[2020-06-01] MEDS: FLUTICASONE NASAL SPRAY 50 MCG/SPRY 120 SPRAY/16 GM NASL SCH ×2 (10:25→22:37)
[2020-06-01] MEDS: LORATADINE 10 MG TABLET PO SCH (10:25)
[2020-06-01] MEDS: ASPIRIN 325 MG TABLET, ENT COATED PO SCH (10:25)
[2020-06-01] MEDS: FERROUS SULFATE 325 MG TABLET PO SCH (10:25)
[2020-06-01] MEDS: NICOTINE 21 MG/24 HR PATCH.TD24 TD SCH (10:27)
[2020-06-01] MEDS: NORMAL SALINE 10 ML SDV (SCHEDULED) IV SCH ×2 (10:27→22:52)
[2020-06-01] MEDS: VARENICLINE TARTRATE 1 MG TABLET PO SCH (10:27)
[2020-06-01] MEDS: LIDOCAINE 5% (700 MG) TRANSDERMAL ADH..PATCH TP SCH (10:28)
--- NOTE | 2020-06-01 11:40 | PDOC PROGRESS REPORT ---
Subjective Progress Note for:: 06/01/20 Subjective:: 39 year old male past medical history of IV drug abuse, hepatitis C, polycystic kidney disease, CKD, MSSA bacteremia who was recently diagnosed with aortic valve bacterial endocarditis with vegetation at [facility], was transferred to [facility] where he underwent aortic valve bioprosthetic replacement, unfortunately while at [facility], he had new onset A. fib, consumptive coagulopathy and vasogenic shock but did have successful bioprosthetic aortic valve replacement. Patient still needs IV antibiotics until 06/04/2020 therefore he was transferred back to [facility] to finish his antibiotic course. On my encounter patient comfortably resting in bed in no apparent distress, seems to be in very good spirit, complaining of sore chest residual from his surgery, bilateral lower extremity pain and erythema has resolved, patient is now ambulatory and having normal bowel and bladder movements, patient is denying any shortness of breath, anginal chest pain, orthopnea, paroxysmal nocturnal dyspnea, weakness, fever, chills, nausea, vomiting, diarrhea, constipation or any urinary symptoms. Refusing DVT prophylaxis and IV fluids. 05/22/2020. No acute events overnight. Comfortably sitting up in apparent distress, denies any fever, chills, nausea, vomiting, diarrhea, constipation or any urinary symptoms. Complaining of sore chest at the surgical site, denies a [place] fever, ambulatory, p.o. tolerant, having normal bowel and bladder movements. Refusing DVT prophylaxis and IV fluids. 05/23/2020. No acute events overnight. Patient keeps complaining about sore ch est pain at the site of his thoracotomy, he is stating that at the other hospital he was receiving Toradol and ibuprofen and it was helping him with his pain, I have mentioned to patient that he has polycystic kidney disease and on top of that he has CKD and it is nadvisable for him to use NSAIDs as it may worsen his renal function, patient voiced understanding and wants his other pain regimen to be increased instead, otherwise denies any fever, chills, nausea, shortness of breath, diarrhea, constipation or any urinary symptoms. He wants his Robaxin and Unisom to be discontinued. Ambulatory. Having normal bowel and bladder movements. 05/24/2020. No acute events overnight. Patient still complaining of chest pain at the site of surgical intervention, Percocet was increased to 10 yesterday however still not enough, would like to try IV morphine, I have warned him about possibility of opiate dependency, patient is stating that he would like to try it and see if it works, unfortunate not a candidate for NSAIDs due to history of polycystic kidney disease and CKD. Denies any fever, chills, nausea, vomiting, diarrhea, constipation or any urinary symptoms. Ambulatory. P.o. tolerant and having normal bowel and bladder function. 05/25/2020. No acute events overnight. Currently resting in bed no apparent stress, denies any fever, chills, nausea, vomiting, diarrhea, constipation or any urinary symptoms. Chest pain is improving with IV morphine. 05/26/2020. No acute events overnight. Ambulatory, having normal bowel, denies any fever, chills, nausea, vomiting, diarrhea, constipation or any urinary symptoms. Patient still complaining of persistent chest pain at the surgical si te stating morphine and [place] does not help he wants his [place] to be switched to Percocet. 05/27/2020. No acute events overnight. Denies any fever, chills, nausea, vomiting, diarrhea, constipation or any urinary symptoms. Chest pain is controlled with IV morphine and p.o. Percocet, tizanidine did not help much and he wants him to be stopped. 05/28/2020. No acute events overnight. Denies any fever, chills, nausea, vomiting, diarrhea, constipation or any urinary symptoms. 05/29/2020. No acute events overnight. Comfortably sitting up in distress, denies any fever, chills, nausea, vomiting. Ambulatory and having normal bowel and bladder movements. 05/30/2020. No acute events overnight. Comfortably distended bladder distress. Denies any chest pain, nausea, vomiting, diarrhea, constipation or any urinary symptoms. 05/31/2020. No acute events overnight. Denies any fever, chills, nausea, vomiting. Ambulatory. Having normal bowel and bladder movements. 06/01/2020-patient is comfortable in the bed communicating well. Not in distress. Afebrile. Plan is to continue IV antibiotic therapy until 06/04. 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, HALF-WAY IV ANTIBIOTIC USE Physical Exam Vital Signs: Temp Pulse Resp BP Pulse Ox 98.0 F 67 17 116/80 100 06/01/20 07:23 06/01/20 07:23 06/01/20 07:23 06/01/20 07:23 06/01/20 07:23 Intake & Output 05/31/20 06/01/20 06/02/20 06:59 06:59 06:59 Intake Total 1190 2014 Balance 1190 2014 Weight 76.7 kg 76.6 kg General appearance: PRESENT: no acute distress, well-developed Head exam: PRESENT: atraumatic Eye exam: PRESENT: PERRLA Ear exam: PRESENT: normal external ear exam Mouth exam: PRESENT: neck supple Neck exam: ABSENT: carotid bruit, JVD, lymphadenopathy, thyromegaly Respiratory exam: PRESENT: decreased breath sounds Cardiovascular exam: PRESENT: other - Surgical scar over the sternum present. GI/Abdominal exam: PRESENT: normal bowel sounds, soft. ABSENT: distended, guard ing, mass, organolmegaly, rebound, tenderness Rectal exam: PRESENT: deferred Extremities exam: PRESENT: full ROM. ABSENT: calf tenderness, clubbing, pedal edema Neurological exam: PRESENT: alert, awake, oriented to person, oriented to place, oriented to time, oriented to situation, CN II-XII grossly intact. ABSENT: motor sensory deficit Psychiatric exam: PRESENT: appropriate affect, normal mood. ABSENT: homicidal ideation, suicidal ideation Results Laboratory Results: 05/28/20 06:55 05/28/20 06:55 Assessment and Plan - Diagnosis (1) Endocarditis due to methicillin susceptible Staphylococcus aureus (MSSA) Is this a current diagnosis for this admission?: Yes Plan: Status post bioprosthetic aortic valve replacement at [facility]. On cefazolin 2 g IV every 8. Last day of antibiotic 06/04/2020. Patient has outpatient follow-up with cardiothoracic surgeon for evaluation of his aortic valve. CBC WNL. Afebrile. Vitals stable. Continue IV antibiotics. Monitor vitals. 06/01/2020-plan is to continue IV cefazolin 2 g every 8 hours last day of antibiotic will be 06/04. (2) New onset a-fib Is this a current diagnosis for this admission?: Yes Plan: New onset paroxysmal A. fib. Was diagnosed at [facility] on April 2020. Currently sinus rhythm. Rate controlled. On amiodarone. Does not require chronic anticoagulation. Continue amiodarone. Continue telemetry. Outpatient PCP and cardiology follow- up. (3) CKD (chronic kidney disease) Qualifiers: Chronic kidney disease stage: stage 2 (mild) Qualified Code(s): N18.2 - Chronic kidney disease, stage 2 (mild) Is this a current diagnosis for this admission?: Yes Plan: History of polycystic kidney disease. Mildly elevated creatinine. Electrolytes WNL. Euvolemic. Monitor volume status and electrolytes. Avoid nephrotoxic meds. (4) Hepatitis C Qualifiers: Viral hepatitis chronicity: unspecified Is this a current diagnosis for this admission?: Yes Plan: Outpatient PCP follow-up. Liver function WNL. PT/INR WNL. (5) Polycystic kidney disease Is this a current diagnosis for this admission?: Yes Plan: History of polycystic kidney disease. Has been seen by journalism teacher as outpatient. Monitor renal function, avoid nephrotoxic meds, monitor volume status. Allergic to ALLEN. Outpatient PCP and nephrology follow-up. (6) Tobacco dependence Is this a current diagnosis for this admission?: Yes Plan: NicoDerm patch and Chantix. Counseled on quitting. Patient is very motivated to try to quit. - Time Anticipated Discharge Disposition: Home, Self Care Anticipated Discharge Timeframe: within 72 hours
[2020-06-01] MEDS: NORMAL SALINE 10 ML SDV (AFTER EACH USE) IV PRN (17:26)
[2020-06-01] MEDS: PHARMACY COMMUNICATION ORDER MC SCH (22:37)
[2020-06-02] MEDS: CEFAZOLIN SODIUM 2 GM in DEXTROSE 5%-WATER 100 ML IV SCH ×3 (01:49→17:27)
[2020-06-02] MEDS: MORPHINE SULFATE 10 MG/ML INJ IV PRN ×4 (02:00→20:07)
[2020-06-02] MEDS: GABAPENTIN 300 MG CAPSULE PO SCH ×3 (05:45→21:49)
[2020-06-02] MEDS: PANTOPRAZOLE SODIUM 40 MG TABLET.DR PO SCH (05:45)
[2020-06-02] MEDS: OXYCODONE-ACETAMINOPHEN 5-325 MG TABLET PO PRN ×4 (05:50→23:29)
[2020-06-02 06:12] LABS: ABSOLUTE BASOPHILS # (AUTO) 0.1 10^3/uL (0.0-0.2); ABSOLUTE EOSINOPHILS # (AUTO) 0.2 10^3/uL (0.0-0.6); ABSOLUTE LYMPHOCYTES (AUTO) 1.6 10^3/uL (0.5-4.7); ABSOLUTE MONOCYTES (AUTO) 0.6 10^3/uL (0.1-1.4); ABSOLUTE NEUT (AUTO) 4.7 10^3/uL (1.7-8.2); EOSINOPHILS % (AUTO) 3.3 % (0-6); HEMATOCRIT 26.1 % (37.9-51.0); HEMOGLOBIN 8.7 g/dL (13.5-17.0); LYMPHOCYTES % (AUTO) 22.1 % (13-45); MEAN CORPUSCULAR HEMOGLOBIN 27.3 pg (27.0-33.4); MEAN CORPUSCULAR HGB CONC 33.2 g/dL (32.0-36.0); MEAN CORPUSCULAR VOLUME 82 fl (80-97); MONOCYTES % (AUTO) 8.8 % (3-13); PLATELET COUNT 524 10^3/uL (150-450); RED BLOOD COUNT 3.17 10^6/uL (4.35-5.55); RED CELL DISTRIBUTION WIDTH 14.3 % (11.5-14.0); SEGMENTED NEUTROPHILS % (AUTO) 64.8 % (42-78); TOTAL CELLS COUNTED % (AUTO) 100 %; WHITE BLOOD COUNT 7.3 10^3/uL (4.0-10.5)
[2020-06-02 06:29] LABS: ALBUMIN 3.3 g/dL (3.5-5.0); ALKALINE PHOSPHATASE 88 U/L (38-126); ANION GAP 8 (5-19); ASPARTATE AMINO TRANSFERASE 14 U/L (17-59); BILIRUBIN,TOTAL 0.2 mg/dL (0.2-1.3); BLOOD UREA NITROGEN 13 mg/dL (7-20); CALCIUM 8.9 mg/dL (8.4-10.2); CARBON DIOXIDE 29 mmol/L (22-30); CHLORIDE 100 mmol/L (98-107); GLUCOSE 94 mg/dL (75-110); TOTAL PROTEIN 6.6 g/dL (6.3-8.2)
--- NOTE | 2020-06-02 09:55 | PDOC PROGRESS REPORT ---
Subjective Progress Note for:: 06/02/20 Subjective:: 39 year old male past medical history of IV drug abuse, hepatitis C, polycystic kidney disease, CKD, MSSA bacteremia who was recently diagnosed with aortic valve bacterial endocarditis with vegetation at [facility], was transferred to [facility] where he underwent aortic valve bioprosthetic replacement, unfortunately while at [facility], he had new onset A. fib, consumptive coagulopathy and vasogenic shock but did have successful bioprosthetic aortic valve replacement. Patient still needs IV antibiotics until 06/04/2020 therefore he was transferred back to [facility] to finish his antibiotic course. On my encounter patient comfortably resting in bed in no apparent distress, seems to be in very good spirit, complaining of sore chest residual from his surgery, bilateral lower extremity pain and erythema has resolved, patient is now ambulatory and having normal bowel and bladder movements, patient is denying any shortness of breath, anginal chest pain, orthopnea, paroxysmal nocturnal dyspnea, weakness, fever, chills, nausea, vomiting, diarrhea, constipation or any urinary symptoms. Refusing DVT prophylaxis and IV fluids. 05/22/2020. No acute events overnight. Comfortably sitting up in apparent distress, denies any fever, chills, nausea, vomiting, diarrhea, constipation or any urinary symptoms. Complaining of sore chest at the surgical site, denies a ny fever, ambulatory, p.o. tolerant, having normal bowel and bladder movements. Refusing DVT prophylaxis and IV fluids. 05/23/2020. No acute events overnight. Patient keeps complaining about sore ch est pain at the site of his thoracotomy, he is stating that at the other hospital he was receiving Toradol and ibuprofen and it was helping him with his pain, I have mentioned to patient that he has polycystic kidney disease and on top of that he has CKD and it is nadvisable for him to use NSAIDs as it may worsen his renal function, patient voiced understanding and wants his other pain regimen to be increased instead, otherwise denies any fever, chills, nausea, shortness of breath, diarrhea, constipation or any urinary symptoms. He wants his Robaxin and Unisom to be discontinued. Ambulatory. Having normal bowel and bladder movements. 05/24/2020. No acute events overnight. Patient still complaining of chest pain at the site of surgical intervention, Percocet was increased to 10 yesterday however still not enough, would like to try IV morphine, I have warned him about possibility of opiate dependency, patient is stating that he would like to try it and see if it works, unfortunate not a candidate for NSAIDs due to history of polycystic kidney disease and CKD. Denies any fever, chills, nausea, vomiting, diarrhea, constipation or any urinary symptoms. Ambulatory. P.o. tolerant and having normal bowel and bladder function. 05/25/2020. No acute events overnight. Currently resting in bed no apparent stress, denies any fever, chills, nausea, vomiting, diarrhea, constipation or any urinary symptoms. Chest pain is improving with IV morphine. 05/26/2020. No acute events overnight. Ambulatory, having normal bowel, denies any fever, chills, nausea, vomiting, diarrhea, constipation or any urinary symptoms. Patient still complaining of persistent chest pain at the surgical si te stating morphine and [place] does not help he wants his [place] to be switched to Percocet. 05/27/2020. No acute events overnight. Denies any fever, chills, nausea, vomiting, diarrhea, constipation or any urinary symptoms. Chest pain is controlled with IV morphine and p.o. Percocet, tizanidine did not help much and he wants him to be stopped. 05/28/2020. No acute events overnight. Denies any fever, chills, nausea, vomiting, diarrhea, constipation or any urinary symptoms. 05/29/2020. No acute events overnight. Comfortably sitting up in distress, denies any fever, chills, nausea, vomiting. Ambulatory and having normal bowel and bladder movements. 05/30/2020. No acute events overnight. Comfortably distended bladder distress. Denies any chest pain, nausea, vomiting, diarrhea, constipation or any urinary symptoms. 05/31/2020. No acute events overnight. Denies any fever, chills, nausea, vomiting. Ambulatory. Having normal bowel and bladder movements. 06/01/2020-patient is comfortable in the bed communicating well. Not in distress. Afebrile. Plan is to continue IV antibiotic therapy until 06/04. 06/02/20-no acute events in the last 24 hours. Afebrile. Plan is to continue IV antibiotic therapy until 06/04. 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 Physical Exam Vital Signs: Temp Pulse Resp BP Pulse Ox 97.8 F 74 19 136/90 H 100 06/02/20 07:20 06/02/20 07:20 06/02/20 07:20 06/02/20 07:20 06/02/20 07:20 Intake & Output 06/01/20 06/02/20 06/03/20 06:59 06:59 06:59 Intake Total 2014 2099 460 Balance 2014 2099 460 Weight 76.6 kg 76.9 kg General appearance: PRESENT: no acute distress, well-developed Head exam: PRESENT: atraumatic Eye exam: PRESENT: PERRLA Mouth exam: PRESENT: moist, tongue midline Teeth exam: PRESENT: poor dentation Neck exam: ABSENT: carotid bruit, JVD, lymphadenopathy, thyromegaly Respiratory exam: PRESENT: decreased breath sounds Cardiovascular exam: PRESENT: systolic murmur, other - Surgical scar present over the sternum. GI/Abdominal exam: PRESENT: normal bowel sounds, soft. ABSENT: distended, guarding, mass, organolmegaly, rebound, tenderness Rectal exam: PRESENT: deferred Extremities exam: PRESENT: full ROM. ABSENT: calf tenderness, clubbing, pedal edema Neurological exam: PRESENT: alert, awake, oriented to person, oriented to place, oriented to time, oriented to situation, CN II-XII grossly intact. ABSENT: motor sensory deficit Results Laboratory Results: 06/02/20 05:53 06/02/20 05:53 06/02/20 06/02/20 05:53 05:53 WBC 7.3 RBC 3.17 L Hgb 8.7 L Hct 26.1 L MCV 82 MCH 27.3 MCHC 33.2 RDW 14.3 H Plt Count 524 H Seg Neutrophils % 64.8 Sodium 137.3 Potassium 5.0 Chloride 100 Carbon Dioxide 29 Anion Gap 8 BUN 13 Creatinine 1.20 Est GFR ( Amer) > 60 Glucose 94 Calcium 8.9 Magnesium 1.7 Total Bilirubin 0.2 AST 14 L Alkaline Phosphatase 88 Total Protein 6.6 Albumin 3.3 L Assessment and Plan - Diagnosis (1) Endocarditis due to methicillin susceptible Staphylococcus aureus (MSSA) Is this a current diagnosis for this admission?: Yes Plan: Status post bioprosthetic aortic valve replacement at [facility]. On cefazolin 2 g IV every 8. Last day of antibiotic 06/04/2020. Patient has outpatient follow-up with cardiothoracic surgeon for evaluation of his aortic valve. CBC WNL. Afebrile. Vitals stable. Continue IV antibiotics. Monitor vitals. 06/01/2020-plan is to continue IV cefazolin 2 g every 8 hours last day of antibiotic will be 06/04. 06/02-plan is to continue IV antibiotic therapy until 06/04. (2) New onset a-fib Is this a current diagnosis for this admission?: Yes Plan: New onset paroxysmal A. fib. Was diagnosed at [facility] on April 2020. Currently sinus rhythm. Rate controlled. On amiodarone. Does not require chronic anticoagulation. Continue amiodarone. Continue telemetry. Outpatient PCP and cardiology follow- up. (3) CKD (chronic kidney disease) Qualifiers: Chronic kidney disease stage: stage 2 (mild) Qualified Code(s): N18.2 - Chronic kidney disease, stage 2 (mild) Is this a current diagnosis for this admission?: Yes Plan: History of polycystic kidney disease. Mildly elevated creatinine. Electrolytes WNL. Euvolemic. Monitor volume status and electrolytes. Avoid nephrotoxic meds. 06/02/20-serum creatinine today is 1.2. Kidney function is stable at this time. (4) Hepatitis C Qualifiers: Viral hepatitis chronicity: unspecified Is this a current diagnosis for this admission?: Yes Plan: Outpatient PCP follow-up. Liver function WNL. PT/INR WNL. (5) Polycystic kidney disease Is this a current diagnosis for this admission?: Yes Plan: History of polycystic kidney disease. Has been seen by looping inspector as outpatient. Monitor renal function, avoid nephrotoxic meds, monitor volume status. Allergic to [place]EN. Outpatient PCP and nephrology follow-up. (6) Tobacco dependence Is this a current diagnosis for this admission?: Yes Plan: NicoDerm patch and Chantix. Counseled on quitting. Patient is very motivated to try to quit. - Time Anticipated Discharge Disposition: Home, Self Care Anticipated Discharge Timeframe: within 48 hours
[2020-06-02] MEDS: METOPROLOL SUCCINATE 25 MG TAB.SR.24H PO SCH (10:27)
[2020-06-02] MEDS: FERROUS SULFATE 325 MG TABLET PO SCH (10:28)
[2020-06-02] MEDS: AMIODARONE HCL 200 MG TABLET PO SCH (10:28)
[2020-06-02] MEDS: DOCUSATE SODIUM 100 MG CAPSULE PO SCH ×2 (10:28→17:27)
[2020-06-02] MEDS: LORATADINE 10 MG TABLET PO SCH (10:28)
[2020-06-02] MEDS: ASPIRIN 325 MG TABLET, ENT COATED PO SCH (10:28)
[2020-06-02] MEDS: FLUTICASONE NASAL SPRAY 50 MCG/SPRY 120 SPRAY/16 GM NASL SCH ×2 (10:29→21:48)
[2020-06-02] MEDS: VARENICLINE TARTRATE 1 MG TABLET PO SCH (10:29)
[2020-06-02] MEDS: NICOTINE 21 MG/24 HR PATCH.TD24 TD SCH (10:30)
[2020-06-02] MEDS: LIDOCAINE 5% (700 MG) TRANSDERMAL ADH..PATCH TP SCH (10:31)
[2020-06-02] MEDS: NORMAL SALINE 10 ML SDV (SCHEDULED) IV SCH ×2 (11:41→21:49)
[2020-06-02] MEDS: PHARMACY COMMUNICATION ORDER MC SCH (21:36)
[2020-06-03] MEDS: CEFAZOLIN SODIUM 2 GM in DEXTROSE 5%-WATER 100 ML IV SCH ×3 (01:39→18:52)
[2020-06-03] MEDS: MORPHINE SULFATE 10 MG/ML INJ IV PRN ×5 (01:43→22:27)
[2020-06-03] MEDS: GABAPENTIN 300 MG CAPSULE PO SCH ×3 (05:11→22:26)
[2020-06-03] MEDS: OXYCODONE-ACETAMINOPHEN 5-325 MG TABLET PO PRN ×3 (05:37→19:24)
[2020-06-03] MEDS: PANTOPRAZOLE SODIUM 40 MG TABLET.DR PO SCH (05:37)
[2020-06-03] MEDS: VARENICLINE TARTRATE 1 MG TABLET PO SCH (09:25)
[2020-06-03] MEDS: NICOTINE 21 MG/24 HR PATCH.TD24 TD SCH (09:25)
[2020-06-03] MEDS: LIDOCAINE 5% (700 MG) TRANSDERMAL ADH..PATCH TP SCH (09:26)
[2020-06-03] MEDS: NORMAL SALINE 10 ML SDV (SCHEDULED) IV SCH ×2 (09:26→22:28)
[2020-06-03] MEDS: ASPIRIN 325 MG TABLET, ENT COATED PO SCH (09:27)
[2020-06-03] MEDS: LORATADINE 10 MG TABLET PO SCH (09:27)
[2020-06-03] MEDS: AMIODARONE HCL 200 MG TABLET PO SCH (09:27)
[2020-06-03] MEDS: FLUTICASONE NASAL SPRAY 50 MCG/SPRY 120 SPRAY/16 GM NASL SCH ×2 (09:27→22:26)
[2020-06-03] MEDS: DOCUSATE SODIUM 100 MG CAPSULE PO SCH ×2 (09:27→18:52)
[2020-06-03] MEDS: FERROUS SULFATE 325 MG TABLET PO SCH (09:27)
[2020-06-03] MEDS: METOPROLOL SUCCINATE 25 MG TAB.SR.24H PO SCH (09:28)
--- NOTE | 2020-06-03 09:46 | PDOC PROGRESS REPORT ---
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 fib, consumptive coagulopathy and vasogenic shock but did have successful bioprosthetic aortic valve replacement. Patient still needs IV antibiotics until 06/04/2020 therefore he was transferred back to [facility] to finish his antibiotic course. On my encounter patient comfortably resting in bed in no apparent distress, seems to be in very good spirit, complaining of sore chest residual from his surgery, bilateral lower extremity pain and erythema has resolved, patient is now ambulatory and having normal bowel and bladder movements, patient is denying any shortness of breath, anginal chest pain, orthopnea, paroxysmal nocturnal dyspnea, weakness, fever, chills, nausea, vomiting, diarrhea, constipation or any urinary symptoms. Refusing DVT prophylaxis and IV fluids. 05/22/2020. No acute events overnight. Comfortably sitting up in apparent distress, denies any fever, chills, nausea, vomiting, diarrhea, constipation or any urinary symptoms. Complaining of sore chest at the surgical site, denies a ny fever, ambulatory, p.o. tolerant, having normal bowel and bladder movements. Refusing DVT prophylaxis and IV fluids. 05/23/2020. No acute events overnight. Patient keeps complaining about sore ch est pain at the site of his thoracotomy, he is stating that at the other hospital he was receiving Toradol and ibuprofen and it was helping him with his pain, I have mentioned to patient that he has polycystic kidney disease and on top of that he has CKD and it is nadvisable for him to use NSAIDs as it may worsen his renal function, patient voiced understanding and wants his other pain regimen to be increased instead, otherwise denies any fever, chills, nausea, shortness of breath, diarrhea, constipation or any urinary symptoms. He wants his Robaxin and Unisom to be discontinued. Ambulatory. Having normal bowel and bladder movements. 05/24/2020. No acute events overnight. Patient still complaining of chest pain at the site of surgical intervention, Percocet was increased to 10 yesterday however still not enough, would like to try IV morphine, I have warned him about possibility of opiate dependency, patient is stating that he would like to try it and see if it works, unfortunate not a candidate for NSAIDs due to history of polycystic kidney disease and CKD. Denies any fever, chills, nausea, vomiting, diarrhea, constipation or any urinary symptoms. Ambulatory. P.o. tolerant and having normal bowel and bladder function. 05/25/2020. No acute events overnight. Currently resting in bed no apparent stress, denies any fever, chills, nausea, vomiting, diarrhea, constipation or any urinary symptoms. Chest pain is improving with IV morphine. 05/26/2020. No acute events overnight. Ambulatory, having normal bowel, denies any fever, chills, nausea, vomiting, diarrhea, constipation or any urinary symptoms. Patient still complaining of persistent chest pain at the surgical si te stating morphine and [place] does not help he wants his [place] to be switched to Percocet. 05/27/2020. No acute events overnight. Denies any fever, chills, nausea, vomiting, diarrhea, constipation or any urinary symptoms. Chest pain is controlled with IV morphine and p.o. Percocet, tizanidine did not help much and he wants him to be stopped. 05/28/2020. No acute events overnight. Denies any fever, chills, nausea, vomiting, diarrhea, constipation or any urinary symptoms. 05/29/2020. No acute events overnight. Comfortably sitting up in distress, denies any fever, chills, nausea, vomiting. Ambulatory and having normal bowel and bladder movements. 05/30/2020. No acute events overnight. Comfortably distended bladder distress. Denies any chest pain, nausea, vomiting, diarrhea, constipation or any urinary symptoms. 05/31/2020. No acute events overnight. Denies any fever, chills, nausea, vomiting. Ambulatory. Having normal bowel and bladder movements. 06/01/2020-patient is comfortable in the bed communicating well. Not in distress. Afebrile. Plan is to continue IV antibiotic therapy until 06/04. 06/02/20-no acute events in the last 24 hours. Afebrile. Plan is to continue IV antibiotic therapy until 06/04. 06/03/20-patient is comfortably in the room communicating well. To complete the antibiotic therapy tomorrow. No acute events in the last 24 hours. Afebrile. 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 USE Physical Exam Vital Signs: Temp Pulse Resp BP Pulse Ox 98.2 F 75 16 121/75 100 06/03/20 07:14 06/03/20 07:14 06/03/20 07:14 06/03/20 07:14 06/03/20 07:14 Intake & Output 06/02/20 06/03/20 06/04/20 06:59 06:59 06:59 Intake Total 2100 2195 480 Balance 2100 2195 480 Weight 76.9 kg 78.2 kg General appearance: PRESENT: no acute distress, well-developed Head exam: PRESENT: atraumatic Eye exam: PRESENT: PERRLA Ear exam: PRESENT: normal external ear exam Mouth exam: PRESENT: neck supple Teeth exam: PRESENT: poor dentation Neck exam: ABSENT: carotid bruit, JVD, lymphadenopathy, thyromegaly Respiratory exam: PRESENT: decreased breath sounds Cardiovascular exam: PRESENT: tachycardia, other - Surgical scar over the sternum present. GI/Abdominal exam: PRESENT: normal bowel sounds, soft. ABSENT: distended, guarding, mass, organolmegaly, rebound, tenderness Rectal exam: PRESENT: deferred Extremities exam: PRESENT: full ROM. ABSENT: calf tenderness, clubbing, pedal edema Neurological exam: PRESENT: alert, awake, oriented to person, oriented to place, oriented to time, oriented to situation, CN II-XII grossly intact. ABSENT: motor sensory deficit Psychiatric exam: PRESENT: appropriate affect, normal mood. ABSENT: homicidal ideation, suicidal ideation Results Laboratory Results: 06/02/20 05:53 06/02/20 05:53 Assessment and Plan - Diagnosis (1) Endocarditis due to methicillin susceptible Staphylococcus aureus (MSSA) Is this a current diagnosis for this admission?: Yes Plan: Status post bioprosthetic aortic valve replacement at [facility]. On cefazolin 2 g IV every 8. Last day of antibiotic 06/04/2020. Patient has outpatient follow-up with cardiothoracic surgeon for evaluation of his aortic valve. CBC WNL. Afebrile. Vitals stable. Continue IV antibiotics. Monitor vitals. 06/01/2020-plan is to continue IV cefazolin 2 g every 8 hours last day of antibiotic will be 06/04. 06/02-plan is to continue IV antibiotic therapy until 06/04. 06/03/20-patient is receiving IV cefazolin and plan is to complete the IV antibiotic therapy by tomorrow. (2) New onset a-fib Is this a current diagnosis for this admission?: Yes Plan: New onset paroxysmal A. fib. Was diagnosed at [facility] on April 2020. Currently sinus rhythm. Rate controlled. On amiodarone. Does not require chronic anticoagulation. Continue amiodarone. Continue telemetry. Outpatient PCP and cardiology follow- up. 06/03/2020-heart rate is 75. Rate controlled rhythm. (3) CKD (chronic kidney disease) Qualifiers: Chronic kidney disease stage: stage 2 (mild) Qualified Code(s): N18.2 - Chronic kidney disease, stage 2 (mild) Is this a current diagnosis for this admission?: Yes Plan: History of polycystic kidney disease. Mildly elevated creatinine. Electrolytes WNL. Euvolemic. Monitor volume status and electrolytes. Avoid nephrotoxic meds. 06/02/20-serum creatinine today is 1.2. Kidney function is stable at this time. (4) Hepatitis C Qualifiers: Viral hepatitis chronicity: unspecified Is this a current diagnosis for this admission?: Yes Plan: Outpatient PCP follow-up. Liver function WNL. PT/INR WNL. (5) Polycystic kidney disease Is this a current diagnosis for this admission?: Yes Plan: History of polycystic kidney disease. Has been seen by aviation safety equipment technician as outpatient. Monitor renal function, avoid nephrotoxic meds, monitor volume status. Allergic to ALLEN. Outpatient PCP and nephrology follow-up. (6) Tobacco dependence Is this a current diagnosis for this admission?: Yes Plan: NicoDerm patch and Chantix. Counseled on quitting. Patient is very motivated to try to quit. - Time Anticipated Discharge Disposition: Home, Self Care Anticipated Discharge Timeframe: within 48 hours
[2020-06-03] MEDS: PHARMACY COMMUNICATION ORDER MC SCH (22:26)
[2020-06-03] MEDS: NORMAL SALINE 10 ML SDV (AFTER EACH USE) IV PRN (22:28)
[2020-06-04] MEDS: CEFAZOLIN SODIUM 2 GM in DEXTROSE 5%-WATER 100 ML IV SCH ×2 (01:26→09:35)
[2020-06-04] MEDS: OXYCODONE-ACETAMINOPHEN 5-325 MG TABLET PO PRN ×2 (01:27→09:26)
[2020-06-04] MEDS: MORPHINE SULFATE 10 MG/ML INJ IV PRN ×2 (02:46→07:30)
[2020-06-04] MEDS: GABAPENTIN 300 MG CAPSULE PO SCH (05:01)
[2020-06-04] MEDS: PANTOPRAZOLE SODIUM 40 MG TABLET.DR PO SCH (05:38)
[2020-06-04] MEDS: ASPIRIN 325 MG TABLET, ENT COATED PO SCH (09:26)
[2020-06-04] MEDS: FERROUS SULFATE 325 MG TABLET PO SCH (09:26)
[2020-06-04] MEDS: LORATADINE 10 MG TABLET PO SCH (09:27)
[2020-06-04] MEDS: AMIODARONE HCL 200 MG TABLET PO SCH (09:27)
[2020-06-04] MEDS: METOPROLOL SUCCINATE 25 MG TAB.SR.24H PO SCH (09:27)
[2020-06-04] MEDS: VARENICLINE TARTRATE 1 MG TABLET PO SCH (09:27)
[2020-06-04] MEDS: FLUTICASONE NASAL SPRAY 50 MCG/SPRY 120 SPRAY/16 GM NASL SCH (09:27)
[2020-06-04] MEDS: DOCUSATE SODIUM 100 MG CAPSULE PO SCH (09:27)
[2020-06-04] MEDS: NICOTINE 21 MG/24 HR PATCH.TD24 TD SCH (09:28)
[2020-06-04] MEDS: LIDOCAINE 5% (700 MG) TRANSDERMAL ADH..PATCH TP SCH (09:28)
[2020-06-04] MEDS: NORMAL SALINE 10 ML SDV (SCHEDULED) IV SCH (09:29)
[2020-06-04] MEDS ORDERED: GABAPENTIN 100 MG CAPSULE PO SCH (14:00)
[2020-06-04] MEDS ORDERED: GABAPENTIN 300 MG CAPSULE PO SCH (14:00)
[2020-06-04 14:17] VITALS: BP 116/74
--- NOTE | 2020-06-04 14:45 | PDOC DISCHARGE SUMMARY ---
Impression - Admit/DC Date/PCP Admission Date/Primary Care Provider: 05/21/20 18:30 Discharge Date: 06/04/20 - Discharge Diagnosis (1) CKD (chronic kidney disease) Is this a current diagnosis for this admission?: Yes (2) New onset a-fib Is this a current diagnosis for this admission?: Yes (3) Polycystic kidney disease Is this a current diagnosis for this admission?: Yes (4) Endocarditis due to methicillin susceptible Staphylococcus aureus (MSSA) Is this a current diagnosis for this admission?: Yes (6) Tobacco dependence Is this a current diagnosis for this admission?: Yes - Additional Information Discharge Diet: Regular Discharge Activity: Activity As Tolerated, Balance Activity w/Rest Referrals: [facility] [Provider Group] - 06/12/20 11:00 am (APPT WITH DR ABBOTT) Prescriptions: Varenicline Tartrate [Chantix 1 mg Tablet] 1 mg PO DAILY #30 tablet Amiodarone HCl [Cordarone 200 mg Tablet] 200 mg PO DAILY #30 tablet Ferrous Sulfate [Feosol 325 mg Tablet] 325 mg PO DAILY #30 tablet Tamsulosin HCl [Flomax 0.4 mg Cap.sr] 0.4 mg PO PCSUPPER #30 cap.sr.24h Fluticasone Propionate [Flonase Nasal [place] 50 Mcg/[place] 16 gm] 2 spray NASL Q12 #30 Lidocaine [Lidoderm 5% (700 mg) Transdermal Patch] 2 patch TP DAILY #30 adh..patch Gabapentin [Neurontin 100 mg Capsule] 100 mg PO Q8 #90 capsule Pantoprazole Sodium [Protonix [address] Tablet] 40 mg PO Q6AM #30 tablet.dr Metoprolol Succinate [Toprol Xl 25 mg Tab.sr] 12.5 mg PO DAILY #30 tab.sr.24h Home Medications: Acetaminophen [Tylenol] 650 mg PO Q4HP PRN 05/22/20 Aspirin [Ecotrin] 325 mg PO DAILY 05/22/20 Loratadine [Claritin 10 mg Tablet] 10 mg PO DAILY 05/22/20 Amiodarone HCl [Cordarone 200 mg Tablet] 200 mg PO DAILY #30 tablet 06/04/20 Ferrous Sulfate [Feosol 325 mg Tablet] 325 mg PO DAILY #30 tablet 06/04/20 Fluticasone Propionate [Flonase Nasal [place] 50 Mcg/[place] 16 gm] 2 spray NASL Q12 #30 06/04/20 Gabapentin [Neurontin 100 mg Capsule] 100 mg PO Q8 #90 capsule 06/04/20 Lidocaine [Lidoderm 5% (700 mg) Transdermal Patch] 2 patch TP DAILY #30 adh..patch 06/04/20 Metoprolol Succinate [Toprol Xl 25 mg Tab.sr] 12.5 mg PO DAILY #30 tab.sr.24h 06/04/20 Pantoprazole Sodium [Protonix [address] Tablet] 40 mg PO Q6AM #30 tablet.dr 06/04/20 Tamsulosin HCl [Flomax 0.4 mg Cap.sr] 0.4 mg PO PCSUPPER #30 cap.sr.24h 06/04/20 Varenicline Tartrate [Chantix 1 mg Tablet] 1 mg PO DAILY #30 tablet 06/04/20 History of Present Illiness History of Present Illness: Per Admitting Physician: "NANCIE SCHROEDER is a 39 year old male past medical history of IV drug abuse, hepatitis C, polycystic kidney disease, CKD, MSSA bacteremia who was recently diagnosed with aortic valve bacterial endocarditis with vegetation at [facility], was transferred to [facility] where he underwent aortic valve bioprosthetic replacement, unfortunately while at [facility], he had new onset A. fib, con sumptive coagulopathy and vasogenic shock but did have successful bioprosthetic aortic valve replacement. Patient still needs IV antibiotics until 06/04/2020 therefore he was transferred back to [facility] to finish his antibiotic course. On my encounter patient comfortably resting in bed in no apparent distress, seems to be in very good spirit, complaining of sore chest residual from his surgery, bilateral lower extremity pain and erythema has resolved, patient is now ambulatory and having normal bowel and bladder movements, patient is denying any shortness of breath, anginal chest pain, orthopnea, paroxysmal nocturnal dyspnea, weakness, fever, chills, nausea, vomiting, diarrhea, constipation or any urinary symptoms. 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 fib, consumptive coagulopathy and vasogenic shock but did have successful bioprosthetic aortic valve replacement. Patient still needs IV antibiotics until 06/04/2020 therefore he was transferred back to [facility] to finish his antibiotic course. On my encounter patient comfortably resting in bed in no apparent distress, seems to be in very good spirit, complaining of sore chest residual from his surgery, bilateral lower extremity pain and erythema has resolved, patient is now ambulatory and having normal bowel and bladder movements, patient is denying any shortness of breath, anginal chest pain, orthopnea, paroxysmal nocturnal dyspnea, weakness, fever, chills, nausea, vomiting, diarrhea, constipation or any urinary symptoms. Refusing DVT prophylaxis and IV fluids. 05/22/2020. No acute events overnight. Comfortably sitting up in apparent distress, denies any fever, chills, nausea, vomiting, diarrhea, constipation or any urinary symptoms. Complaining of sore chest at the surgical site, denies any fever, ambulatory, p.o. tolerant, having normal bowel and bladder movements. Refusing DVT prophylaxis and IV fluids. 05/23/2020. No acute events overnight. Patient keeps complaining about sore chest pain at the site of his thoracotomy, he is stating that at the other hospital he was receiving Toradol and ibuprofen and it was helping him with his pain, I have mentioned to patient that he has polycystic kidney disease and on top of that he has CKD and it is nadvisable for him to use NSAIDs as it may worsen his renal function, patient voiced understanding and wants his other pain regimen to be increased instead, otherwise denies any fever, chills, nausea, shortness of breath, diarrhea, constipation or any urinary symptoms. He wants his Robaxin and Unisom to be discontinued. Ambulatory. Having normal bowel and bladder movements. 05/24/2020. No acute events overnight. Patient still complaining of chest pain at the site of surgical intervention, Percocet was increased to 10 yesterday however still not enough, would like to try IV morphine, I have warned him about possibility of opiate dependency, patient is stating that he would like to try it and see if it works, unfortunate not a candidate for NSAIDs due to history of polycystic kidney disease and CKD. Denies any fever, chills, nausea, vomiting, diarrhea, constipation or any urinary symptoms. Ambulatory. P.o. tolerant and having normal bowel and bladder function. 05/25/2020. No acute events overnight. Currently resting in bed no apparent stress, denies any fever, chills, nausea, vomiting, diarrhea, constipation or any urinary symptoms. Chest pain is improving with IV morphine. 05/26/2020. No acute events overnight. Ambulatory, having normal bowel, denies any fever, chills, nausea, vomiting, diarrhea, constipation or any urinary symptoms. Patient still complaining of persistent chest pain at the surgical site stating morphine and [place] does not help he wants his [place] to be switched to Percocet. 05/27/2020. No acute events overnight. Denies any fever, chills, nausea, vomiting, diarrhea, constipation or any urinary symptoms. Chest pain is controlled with IV morphine and p.o. Percocet, tizanidine did not help much and he wants him to be stopped. 05/28/2020. No acute events overnight. Denies any fever, chills, nausea, vomiting, diarrhea, constipation or any urinary symptoms. 05/29/2020. No acute events overnight. Comfortably sitting up in distress, denies any fever, chills, nausea, vomiting. Ambulatory and having normal bowel and bladder movements. 05/30/2020. No acute events overnight. Comfortably distended bladder distress. Denies any chest pain, nausea, vomiting, diarrhea, constipation or any urinary symptoms. 05/31/2020. No acute events overnight. Denies any fever, chills, nausea, vomiting. Ambulatory. Having normal bowel and bladder movements. 06/01/2020-patient is comfortable in the bed communicating well. Not in distress. Afebrile. Plan is to continue IV antibiotic therapy until 06/04. 06/02/20-no acute events in the last 24 hours. Afebrile. Plan is to continue IV antibiotic therapy until 06/04. 06/03/20-patient is comfortably in the room communicating well. To complete the antibiotic therapy tomorrow. No acute events in the last 24 hours. Afebrile." Patient was being maintained on IV morphine and 10 mg of oxycodone essentially [id number] which he was likely abusing rather than using for simple pain control. This was stopped at discharge and he was not given a prescription for narcotics given his drug abuse history and high likelihood to backslide into narcotics addiction. He was prescribed gabapentin, Tylenol, Lidoderm patches for his pain management and he may benefit from a referral to pain management clinic. Patient completed antibiotics and IV removed at discharge. Patient must follow-up with his CT surgeon at [facility]. He also need to establish care with a PCP. Patient was on nicotine patches and Chantix per previous physician during admission though I stopped this at discharged patient only on Chantix. Patient was counseled on continued cessation of drug abuse and tobacco products. Per previous physician: "(1) Endocarditis due to methicillin susceptible Staphylococcus aureus (MSSA) Is this a current diagnosis for this admission?: Yes Plan: Status post bioprosthetic aortic valve replacement at [facility]. On cefazolin 2 g IV every 8. Last day of antibiotic 06/04/2020. Patient has outpatient follow-up with cardiothoracic surgeon for evaluation of his aortic valve. CBC WNL. Afebrile. Vitals stable. Continue IV antibiotics. Monitor vitals. 06/01/2020-plan is to continue IV cefazolin 2 g every 8 hours last day of antibiotic will be 06/04. 06/02-plan is to continue IV antibiotic therapy until 06/04. 06/03/20-patient is receiving IV cefazolin and plan is to complete the IV antib iotic therapy by tomorrow. Complete antibiotics course, IV remove at discharge (2) New onset a-fib Is this a current diagnosis for this admission?: Yes Plan: New onset paroxysmal A. fib. Was diagnosed at [facility] on April 2020. Currently sinus rhythm. Rate controlled. On amiodarone. Does not require chronic anticoagulation. Continue amiodarone. Continue telemetry. Outpatient PCP and cardiology follow- up. 06/03/2020-heart rate is 75. Rate controlled rhythm. (3) CKD (chronic kidney disease) Qualifiers: Chronic kidney disease stage: stage 2 (mild) Qualified Code(s): N18.2 - Chronic kidney disease, stage 2 (mild) Is this a current diagnosis for this admission?: Yes Plan: History of polycystic kidney disease. Mildly elevated creatinine. Electrolytes WNL. Euvolemic. Monitor volume status and electrolytes. Avoid nephrotoxic meds. 06/02/20-serum creatinine today is 1.2. Kidney function is stable at this time. Baseline (4) Hepatitis C Qualifiers: Viral hepatitis chronicity: unspecified Is this a current diagnosis for this admission?: Yes Plan: Outpatient PCP follow-up. Liver function WNL. PT/INR WNL. Treated with Harvoni while he was in skilled nursing recently (5) Polycystic kidney disease Is this a current diagnosis for this admission?: Yes Plan: History of polycystic kidney disease. Has been seen by filler shaker as outpatient. Monitor renal function, avoid nephrotoxic meds, monitor volume status. Allergic to ALLEN. Outpatient PCP and nephrology follow-up. (6) Tobacco dependence Is this a current diagnosis for this admission?: Yes Plan: Chantix. Counseled on quitting " Physical Exam Vital Signs: Temp Pulse Resp BP Pulse Ox 97.8 F 74 18 116/74 100 06/04/20 14:15 06/04/20 14:15 06/04/20 14:15 06/04/20 14:15 06/04/20 14:15 Intake & Output 06/03/20 06/04/20 06/05/20 06:59 06:59 06:59 Intake Total 2195 1965 650 Balance 2195 1965 650 Weight 78.2 kg 77.6 kg 77.6 kg General appearance: PRESENT: no acute distress, well-developed, well-nourished Head exam: PRESENT: atraumatic, normocephalic Eye exam: PRESENT: conjunctiva pink Mouth exam: PRESENT: moist Respiratory exam: PRESENT: clear to auscultation nils. ABSENT: rales, rhonchi, wheezes Cardiovascular exam: PRESENT: RRR. ABSENT: diastolic murmur, rubs, systolic murmur GI/Abdominal exam: PRESENT: normal bowel sounds, soft. ABSENT: distended, guarding, mass, organolmegaly, rebound, tenderness Musculoskeletal exam: PRESENT: tenderness - Very mild tenderness along s ternotomy scar which is completely healed Neurological exam: PRESENT: alert, awake, oriented to person, oriented to place, oriented to time, oriented to situation Psychiatric exam: PRESENT: appropriate affect, normal mood Skin exam: PRESENT: dry, intact, warm Results Laboratory Results: WBC 7.3 10^3/uL (4.0-10.5) 06/02/20 05:53 RBC 3.17 10^6/uL (4.35-5.55) L 06/02/20 05:53 Hgb 8.7 g/dL (13.5-17.0) L 06/02/20 05:53 Hct 26.1 % (37.9-51.0) L 06/02/20 05:53 MCV 82 fl (80-97) 06/02/20 05:53 MCH 27.3 pg (27.0-33.4) 06/02/20 05:53 MCHC 33.2 g/dL (32.0-36.0) 06/02/20 05:53 RDW 14.3 % (11.5-14.0) H 06/02/20 05:53 Plt Count 524 10^3/uL (150-450) H 06/02/20 05:53 Lymph % (Auto) 22.1 % (13-45) 06/02/20 05:53 [place] % (Auto) 8.8 % (3-13) 06/02/20 05:53 Eos % (Auto) 3.3 % (0-6) 06/02/20 05:53 Baso % (Auto) 1.0 % (0-2) 06/02/20 05:53 Reticulocyte # 0.076 10^6/uL (0.028-0.122) 05/23/20 06:23 Absolute Neuts (auto) 4.7 10^3/uL (1.7-8.2) 06/02/20 05:53 Absolute Lymphs (auto) 1.6 10^3/uL (0.5-4.7) 06/02/20 05:53 Absolute Monos (auto) 0.6 10^3/uL (0.1-1.4) 06/02/20 05:53 Absolute Eos (auto) 0.2 10^3/uL (0.0-0.6) 06/02/20 05:53 Absolute Basos (auto) 0.1 10^3/uL (0.0-0.2) 06/02/20 05:53 Seg Neutrophils % 64.8 % (42-78) 06/02/20 05:53 Retic Count (auto) 2.45 % (0.66-2.85) 05/23/20 06:23 PT 14.3 SEC (11.4-15.4) 08/06/20 06:23 INR 1.09 05/23/20 06:23 Sodium 137.3 mmol/L (137-145) 06/02/20 05:53 Potassium 5.0 mmol/L (3.6-5.0) 06/02/20 05:53 Chloride 100 mmol/L (98-107) 06/02/20 05:53 Carbon Dioxide 29 mmol/L (22-30) 06/02/20 05:53 Anion Gap 8 (5-19) 06/02/20 05:53 BUN 13 mg/dL (7-20) 06/02/20 05:53 Creatinine 1.20 mg/dL (0.52-1.25) 06/02/20 05:53 Est GFR ( Amer) > 60 (>60) 06/02/20 05:53 Est GFR (MDRD) Non-Af > 60 (>60) 06/02/20 05:53 Glucose 94 mg/dL (75-110) 06/02/20 05:53 Calcium 8.9 mg/dL (8.4-10.2) 06/02/20 05:53 Phosphorus 4.1 mg/dL (2.5-4.5) 05/23/20 06:23 Magnesium 1.7 mg/dL (1.6-2.3) 06/02/20 05:53 Iron 19.6 ug/dL (49-181) L 05/23/20 06:23 TIBC 277 ug/dL (250-450) 05/23/20 06:23 % Saturation 7 % 05/23/20 06:23 Ferritin 180.00 ng/mL (17.9-464.0) 05/23/20 06:23 Total Bilirubin 0.2 mg/dL (0.2-1.3) 06/02/20 05:53 Direct Bilirubin 0.0 mg/dL (0.0-0.4) 06/02/20 05:53 Neonat Total Bilirubin Not Reportable 06/02/20 05:53 Neonat Direct Bilirubin Not Reportable 06/02/20 05:53 Neonat Indirect Bili Not Reportable 06/02/20 05:53 AST 14 U/L (17-59) L 06/02/20 05:53 ALT < 4 U/L (<50) 06/02/20 05:53 Alkaline Phosphatase 88 U/L (38-126) 06/02/20 05:53 C-Reactive Protein 70.1 mg/L (<10.0) H 05/23/20 06:23 Total Protein 6.6 g/dL (6.3-8.2) 06/02/20 05:53 Albumin 3.3 g/dL (3.5-5.0) L 06/02/20 05:53 Vitamin B12 252.0 pg/mL (239-931) 05/23/20 06:23 Folate 4.00 ng/mL (>2.76) 05/23/20 06:23 Plan Time Spent: Greater than 30 Minutes Stroke Is this a Stroke Patient?: No Acute Heart Failure - Is this a Heart Failure Patient?: No
[2020-06-04] MEDS ORDERED: TAMSULOSIN HCL 0.4 MG CAP.SR.24H PO SCH (18:00)
== END 2020-06-04 14:30 | disposition home or self-care (01) | DRG 289 ==
LOC: 4N 18:30
PROVIDERS: ADMIT Internal Medicine; ATTEND Internal Medicine
DX: I33.0 Acute and subacute infective endocarditis (principal); Q61.3 Polycystic kidney, unspecified; I48.0 Paroxysmal atrial fibrillation; B19.20 Unspecified viral hepatitis C without hepatic coma; I12.9 Hypertensive chronic kidney disease with stage 1 through stage 4 chronic kidney disease, or unspecified chronic kidney disease; B95.61 Methicillin susceptible Staphylococcus aureus infection as the cause of diseases classified elsewhere; N18.2 Chronic kidney disease, stage 2 (mild); F17.210 Nicotine dependence, cigarettes, uncomplicated; F32.9 Major depressive disorder, single episode, unspecified; Z79.82 Long term (current) use of aspirin; Z79.899 Other long term (current) drug therapy; Z79.2 Long term (current) use of antibiotics; Z88.8 Allergy status to other drugs, medicaments and biological substances; Z91.048 Other nonmedicinal substance allergy status
CPT/HCPCS: 36415; 80048; 80053; 82607; 82728; 82746; 83540; 83550; 83735; 84100; 85025; 85027; 85045; 85610; 86140; 93005; 93010; J0690; J1642; J2270; J2550; J3490; J7060

== ENCOUNTER 2020-06-30 11:19 | Emergency (ER) | payer SELFPAY ==
--- NOTE | 2020-06-30 11:52 | ER Document Report ---
ED Medical Screen (RME) - General Chief Complaint: Urinary Problem Stated Complaint: URINARY ISSUE Time Seen by Provider: 06/30/20 11:41 Mode of Arrival: Ambulatory Information source: Patient Notes: Patient presents complaining of UTI symptoms for the past 2 to 3 weeks. Patient states that late last month he was treated for UTI with Keflex and did not have any improvement. Patient states he then went to another doctor and was placed on Cipro. Patient states that he did not completely finish the medication as he started to get thrush and thought it was attributed to the antibiotic use. Patient does complain of dysuria and change in his urinary stream. Patient states that he does not feel as though he is able to completely empty his bladder. Patient complains of lower abdominal pressure. Patient is uncertain if he may or may not have any penile discharge. Patient is uncertain if he is ever had a fever. Patient denies any nausea or vomiting. 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 Patient also has a history of hepatitis C that was treated with Harvoni. I have greeted and performed a rapid initial assessment of this patient. A comprehensive ED assessment and evaluation of the patient, analysis of test results and completion of the medical decision making process will be conducted by additional ED providers. - Related Data Allergies/Adverse Reactions: lisinopril [Lisinopril] Allergy (Verified 04/21/20 12:08) ANGIOEDEMA muscle relaxers Allergy (Uncoded 05/01/14 10:26) Past Medical History - Social History Frequency of alcohol use: None Drug Abuse: None - Past Medical History Cardiac Medical History: Reports: Hx Hypertension Denies: Hx Atrial Fibrillation, Hx Coronary Artery Disease, Hx Hypercholesterolemia Pulmonary Medical History: Denies: Hx COPD, Hx Tuberculosis GI Medical History: Reports: Hx Hepatitis - s/p Harvoni treatment Psychiatric Medical History: Reports: Hx Depression Infectious Medical History: Reports: Hx Hepatitis - s/p Harvoni treatment Past Surgical History: Reports: Hx Orthopedic Surgery - [place] IN RIGHT LEG - Immunizations Hx Diphtheria, Pertussis, Tetanus Vaccination: No - unknown Physical Exam - Vital signs Vitals: Temp Pulse Resp BP Pulse Ox 97.6 F 97 20 150/104 H 100 06/30/20 11:23 06/30/20 11:23 06/30/20 11:23 06/30/20 11:23 06/30/20 11:23 - General General appearance: Appears well, Alert In distress: None - Back Back: No: CVA tenderness Course - Vital Signs Vital signs: Temp Pulse Resp BP Pulse Ox 97.6 F 97 20 150/104 H 100 06/30/20 11:23 06/30/20 11:23 06/30/20 11:23 06/30/20 11:23 06/30/20 11:23
[2020-06-30] MEDS ORDERED: LIDOCAINE 2% URO-JET 5 ML KIT MM ONE (12:41)
[2020-06-30 13:05] LABS: APPEARANCE,URINE CLEAR; BILIRUBIN,URINE NEGATIVE (NEGATIVE); COLOR,URINE YELLOW; GLUCOSE, URINE NEGATIVE (NEGATIVE); KETONES,URINE NEGATIVE (NEGATIVE); LEUKOCYTE ESTERASE,URINE NEGATIVE (NEGATIVE); NITRITE,URINE NEGATIVE (NEGATIVE); PROTEIN,URINE 100 mg/dL (NEGATIVE); URINE SPECIFIC GRAVITY 1.016; UROBILINOGEN,URINE NEGATIVE mg/dL (<2.0)
[2020-06-30 13:23] LABS: ALBUMIN 4.6 g/dL (3.5-5.0); ALKALINE PHOSPHATASE 100 U/L (38-126); ANION GAP 14 (5-19); ASPARTATE AMINO TRANSFERASE 24 U/L (17-59); BILIRUBIN,DIRECT 0.4 mg/dL (0.0-0.4); BILIRUBIN,TOTAL 0.8 mg/dL (0.2-1.3); BLOOD UREA NITROGEN 14 mg/dL (7-20); CALCIUM 10.1 mg/dL (8.4-10.2); CARBON DIOXIDE 26 mmol/L (22-30); CHLORIDE 103 mmol/L (98-107); GLUCOSE 100 mg/dL (75-110); POTASSIUM 3.9 mmol/L (3.6-5.0); TOTAL PROTEIN 8.3 g/dL (6.3-8.2)
--- NOTE | 2020-06-30 13:43 | ER Document Report ---
Entered by REBEL ZAYAS SCRIBE 06/30/20 1226 Acting as scribe for:ALEXIS MARTINEZ MD ED GI/ - General Chief Complaint: Urinary Problem Stated Complaint: URINARY ISSUE Time Seen by Provider: 06/30/20 11:41 Primary Care Provider: [facility] [Provider Group] - Follow up in 3-5 days (Call the office Wednesday morning to schedule an appointment this week) Mode of Arrival: Ambulatory Information source: Patient Notes: This 39 year old male patient presents to the emergency department today with complaints of burning with urination as well as possible urinary retention. He reports that he had a long inpatient stay with endocarditis recently and about 2-3 days after being discharged he developed "problems with his stream", mentioning that it "sprays all over". Now he reports it has "gotten worse" mentioning that he now has to "push hard, massage, and squeeze" to get urine out and it gerard when he does. He was on ancef during his stay in the [facility], and he has since been put on Keflex and Cipro was added on on the . He did not take the Flomax that was prescribed until a few days ago. He does report having an appointment to see a urologist in [place], but did not have a ride to get down there. He later reported speaking with [facility] and was given an appointment for August 07. - Related Data Allergies/Adverse Reactions: lisinopril [Lisinopril] Allergy (Verified 04/21/20 12:08) ANGIOEDEMA muscle relaxers Allergy (Uncoded 05/01/14 10:26) Past Medical History - General Information source: Patient - Social History Smoking Status: Current Every Day Smoker Cigarette use (# per day): Yes Frequency of alcohol use: None Drug Abuse: None Lives with: Family Family History: Reviewed & Not Pertinent - Past Medical History Cardiac Medical History: Reports: Hx Hypertension GI Medical History: Reports: Hx Hepatitis - s/p Harvoni treatment Psychiatric Medical History: Reports: Hx Depression Infectious Medical History: Reports: Hx Hepatitis - s/p Harvoni treatment Past Surgical History: Reports: Hx Cardiac Surgery - aortic valve replacement, Hx Orthopedic Surgery - CLEMENTINA IN RIGHT LEG - Immunizations Hx Diphtheria, Pertussis, Tetanus Vaccination: No - unknown Hx Pneumococcal Vaccination: 10/18/00 Review of Systems - Review of Systems Constitutional: No symptoms reported EENT: No symptoms reported Cardiovascular: No symptoms reported Respiratory: No symptoms reported Gastrointestinal: No symptoms reported Genitourinary: See HPI, Burning, Retention Male Genitourinary: No symptoms reported Musculoskeletal: No symptoms reported Skin: No symptoms reported Hematologic/Lymphatic: No symptoms reported Neurological/Psychological: No symptoms reported -: Yes All other systems reviewed and negative Physical Exam - Vital signs Vitals: Temp Pulse Resp BP Pulse Ox 97.6 F 97 20 150/104 H 100 06/30/20 11:23 06/30/20 11:23 06/30/20 11:23 06/30/20 11:23 06/30/20 11:23 - Notes Notes: Physical Exam: General: Alert, appears well. HEENT: Normocephalic. Atraumatic. PERRL. Extraocular movements intact. Oropharynx clear. Neck: Supple. Non-tender. Respiratory: No respiratory distress. Clear and equal breath sounds bilaterally. Cardiovascular: Regular rate and rhythm. Abdominal: Normal Inspection. Non-tender. No distension. Normal Bowel Sounds. Male Genitourinary: Performed with male product architect in attendance. There is no testicular swelling or tenderness on palpation. There is no firmness at the base of the penis. Rectal: Performed with male product architect in attendance. No prostatitis. No rectal bleeding. Back: No gross abnormalities. Extremities: Moves all four extremities. Upper extremities: Normal inspection. Normal ROM. Lower extremities: Normal inspection. No edema. Normal ROM. Neurological: Normal cognition. AAOx4. Normal speech. Psychological: Normal affect. Normal Mood. Skin: Warm. Dry. Normal color. Course - Re-evaluation Re-evalutation: 06/30/20 13:36 An attempt was made to pass a Kaur catheter on the patient. The urethra was lubricated with Urojet lidocaine, eventually a 12 [place] coud catheter was tried, but would not pass through the opening of the urethra. At this point the patient reports that he had been told by a urologist many years ago that he would probably need surgery for the urethral stricture. He states he was told at the time that he may have trouble urinating when he gets a urine infection, but that there was no need to do anything at that time. 06/30/20 13:41 Bladder scan showed 163 mL's of urine, he last urinated about 90 minutes ago. - Vital Signs Vital signs: Temp Pulse Resp BP Pulse Ox 97.8 F 91 16 142/96 H 100 06/30/20 15:00 06/30/20 15:00 06/30/20 15:00 06/30/20 15:00 06/30/20 15:00 - Laboratory Result Diagrams: 06/30/20 13:57 06/30/20 12:45 Laboratory results interpreted by me: 06/30/20 06/30/20 06/30/20 12:24 12:45 13:57 RBC 4.06 L Hgb 10.3 L Hct 31.1 L MCV 77 L D MCH 25.3 L RDW 16.7 H Plt Count 634 H Total Protein 8.3 H Urine Protein 100 H - Consults Dr. Mir Time consulted: 14:34 Consulted provider: follow-up in office - Dr. Mir requested the patient call the office tomorrow morning and let them know that we spoke and the need to get him in sometime this week to be seen. Discharge - Discharge Clinical Impression: Urethral stricture in male Qualifiers: Urethral stricture type: unspecified stricture type Qualified Code(s): N35.919 - Unspecified urethral stricture, male, unspecified site Condition: Stable Disposition: HOME, SELF-CARE Additional Instructions: Your history and physical exam today suggest you have a stricture at the urethral meatus. We were not able to pass a 12 [place] coud catheter. Your bladder scan did not show that you were retaining much residual urine. I spoke with Dr. Mir from [facility]. He wants you to call the [place] office tomorrow and let them know that he and I spoke and they need to get you in to the office this week to be seen. RETURN TO THE EMERGENCY ROOM IF ANY NEW OR WORSENING SYMPTOMS. Referrals: [facility] [Provider Group] - Follow up in 3-5 days (Call the office Wednesday to schedule an appointment this week) I personally performed the services described in the documentation, reviewed and edited the documentation which was dictated to the scribe in my presence, and it accurately records my words and actions.
[2020-06-30 14:11] LABS: ABSOLUTE BASOPHILS # (AUTO) 0.1 10^3/uL (0.0-0.2); ABSOLUTE EOSINOPHILS # (AUTO) 0.1 10^3/uL (0.0-0.6); ABSOLUTE LYMPHOCYTES (AUTO) 1.7 10^3/uL (0.5-4.7); ABSOLUTE MONOCYTES (AUTO) 0.5 10^3/uL (0.1-1.4); ABSOLUTE NEUT (AUTO) 4.3 10^3/uL (1.7-8.2); EOSINOPHILS % (AUTO) 1.8 % (0-6); HEMATOCRIT 31.1 % (37.9-51.0); HEMOGLOBIN 10.3 g/dL (13.5-17.0); MEAN CORPUSCULAR HEMOGLOBIN 25.3 pg (27.0-33.4); MONOCYTES % (AUTO) 8.1 % (3-13); PLATELET COUNT 634 10^3/uL (150-450); RED BLOOD COUNT 4.06 10^6/uL (4.35-5.55); RED CELL DISTRIBUTION WIDTH 16.7 % (11.5-14.0); SEGMENTED NEUTROPHILS % (AUTO) 63.1 % (42-78); TOTAL CELLS COUNTED % (AUTO) 100 %; WHITE BLOOD COUNT 6.8 10^3/uL (4.0-10.5)
[2020-06-30 14:16] LABS: MEAN CORPUSCULAR VOLUME 77 fl (80-97)
[2020-06-30 14:26] LABS: CHLAM PCR NOT DETECTED (NOT DETECT)
[2020-06-30 15:24] VITALS: BP 142/96
== END 2020-06-30 15:00 | disposition home or self-care (01) ==
LOC: ER 11:19
DX: R39.198 Other difficulties with micturition (principal); N35.919 Unspecified urethral stricture, male, unspecified site; R30.9 Painful micturition, unspecified; R33.9 Retention of urine, unspecified; Z88.8 Allergy status to other drugs, medicaments and biological substances; Z79.899 Other long term (current) drug therapy; F17.210 Nicotine dependence, cigarettes, uncomplicated; I10 Essential (primary) hypertension
CPT/HCPCS: 99283; 51702; 36415; 87086; 85025; 80053; 81001; 86701; 87491; 87591; J3490